=== PATIENT | male | born 1950 | race Two or more races ===

== ENCOUNTER → 2020-09-09 14:37 | Outpatient (BNVA) | payer MEDICARE, MEDICAID, SELFPAY | PROVIDERS: PCP Internal Medicine; Referring Provider Internal Medicine; Visit Provider Internal Medicine | DX: I25.10 Atherosclerotic heart disease of native coronary artery without angina pectoris (principal); I10 Essential (primary) hypertension; Z79.82 Long term (current) use of aspirin; Z79.899 Other long term (current) drug therapy | CPT/HCPCS: Q3014 ==

== ENCOUNTER 2020-09-12 16:04 | Emergency (ER) | payer MEDICARE, MEDICAID, SELFPAY ==
[2020-09-12 17:20] VITALS: BP 154/72; PULSE 72; RESP 16; TEMP 37.1; O2SAT 96; BMI 26.6
--- NOTE | 2020-09-12 18:14 | ED.LOWEXIN ---
HPI - Extremity Injury (Lower) General Chief Complaint: Extremity Injury, Lower Stated Complaint: Leg Pain Source: patient Mode of arrival: ambulatory Limitations: no limitations History of Present Illness HPI Narrative: patient presents to ED for request for compression stockings. Patient was prescribed compression stockings by his PCP this past week, but there were the wrong size. Patient states history of venous stasis of both legs. Presently patient denies any increased swelling, calf pain, redness, chest pain, chest pain on inspiration or shortness of breath. Related Data Home Medications Medication Instructions Recorded Confirmed aspirin 81 mg tablet,delayed 81 mg PO QAM 09/09/20 09/09/20 release atorvastatin 80 mg tablet 80 mg PO DAILY 09/09/20 09/09/20 diclofenac sodium 1 % topical gel 1 TOPICAL PRN 09/09/20 09/09/20 enalapril maleate 2.5 mg tablet 2.5 mg PO QAM 09/09/20 09/09/20 famotidine 20 mg tablet mg PO 09/09/20 09/09/20 famotidine 40 mg tablet 20 mg PO QAM 09/09/20 09/09/20 gabapentin 100 mg capsule mg PO 09/09/20 09/09/20 multivitamin-ferrous 1 tab PO QAM 09/09/20 09/09/20 fumarate-folic acid 18 mg-400 mcg tablet omeprazole 20 mg capsule,delayed 20 mg PO QAM 09/09/20 09/09/20 release vardenafil 20 mg tablet 20 mg PO DAILY PRN 09/09/20 09/09/20 Previous Rx's Medication Instructions Recorded amlodipine 5 mg tablet 5 mg PO DAILY 90 Days #90 tab 08/26/20 metoprolol tartrate 25 mg tablet 25 mg PO BID 90 Days #180 tab 08/26/20 compression socks, medium #2 ea 09/12/20 Allergies Allergy/AdvReac Type Severity Reaction Status Date / Time No Known Allergies Allergy Verified 09/09/20 14:38 Review of Systems Review of Systems: Yes all other systems are reviewed and are negative Constitutional: Constitutional: Reports as per HPI and Reports no additional constitutional complaints Eyes: Eyes: Reports as per HPI and Reports no additional eye complaints ENT: Reports system reviewed and no additional complaints, except as documented and Reports as per HPI Cardiovascular: Cardiovascular: Reports as per HPI and Reports no additional cardiovascular complaints Respiratory: Respiratory: Reports as per HPI and Reports no additional respiratory complaints Gastrointestinal: Gastrointestinal: Reports as per HPI and Reports no additional gastrointestinal complaints Genitourinary: Genitourinary: Reports no additional male genitourinary complaints and Reports as per HPI Musculoskeletal: Musculoskeletal: Reports no additional musculoskeletal complaints and Reports as per HPI Neurologic: Reports system reviewed and no additional complaints, except as documented and Reports as per HPI Psychiatric: Psychiatric: Reports no additional psychiatric complaints and Reports as per HPI [facility] Past Medical History Medical History Atherosclerotic cardiovascular disease Essential hypertension Surgical History History of cardiac catheterization (~08/19/14) Stented coronary artery Family History Family History (Updated 09/09/20 @ 14:39 by JOSUÉ Barrett) Father No problems noted. Mother No problems noted. Social History Social History (Updated 09/09/20 @ 14:40 by JOSUÉ Barrett) Alcohol intake: never Smoking Status: Never smoker Smoked in Last 30 Days: No Use of substances other than those prescribed or required for medical reasons: No Advance Directives: No Advance Directives Information Provided: Yes Physical Exam Vital Signs: Vital Signs: Last Vital Signs Temp 98.7 F 09/12/20 17:20 Pulse 72 09/12/20 17:20 Resp 16 09/12/20 17:20 BP 154/72 H 09/12/20 17:20 Pulse Ox 96 09/12/20 17:20 Body Mass Index 26.6 Const: General: cooperative, healthy appearing, comfortable, no acute distress, well developed, alert, awake and Physically active Orientation/consciousness: patient oriented x3 HENMT: Head: Yes normal to inspection and Yes No palpable skull fracture present Eyes: General: appearance normal, both eyes and all related structures Neck: Neck: Yes normal visual inspection, Yes full ROM, Yes no lymphadenopathy, Yes no meningeal signs, Yes trachea midline, Yes supple and No tender Chest: Chest palpation & inspection: normal inspection of the chest, normal palpation of entire chest wall and no localized rib tenderness Resp: Effort & Inspection: normal respiratory effort and able to speak in complete sentences Auscultation: clear to auscultation bilaterally Cardio: Jugular venous distension: no JVD Heart sounds: S1 normal heart sound present and S2 normal heart sound present GI: Inspection: Yes normal to inspection and No abdominal wall ecchymosis Palpation (GI): Firmness to palpation present (GI), nontender, no guarding and not rigid : General: No CVA tenderness and Yes no CVA tenderness Back/Spine/Pelvis: Back: no CVA tenderness, No CVA tenderness and No back tenderness Skin: General skin exam: no rashes or lesions noted Neuro: General: patient oriented x3, gait normal, no meningeal signs and CN's II-XI intact bilaterally Cranial nerves: Yes CN's II-XII intact bilaterally Extrem: Other: lower extremities positive for venous stasis changes. Negative for any calf tenderness, or pitting edema. Patient has palpable pulses in both feet. Neuro exam is intact. General: Yes normal to inspection and Yes full ROM Course Course Course Narrative: history and physical exam does not indicate DVT, cellulitis, CHF, or PE Reevaluation(s) Reevaluation #1: patient will have stocking prescribed. MDM - Extremity Injury (Lower) MDM Narrative Medical decision making narrative: Venous stasis. Medication refilled Discharge Plan Discharge Clinical Impression: Venous (peripheral) insufficiency, Encounter for medication refill Patient Disposition: Home, Self-Care Instructions: Venous Insufficiency (DC) Prescriptions: New (DME) compression socks, medium Misc See Rx Instructions .ROUTE .MEDSUPPLY Qty: 2 RF: 0 No Action amlodipine 5 mg tablet 5 mg PO DAILY 90 Days Qty: 90 RF: 3 metoprolol tartrate 25 mg tablet 25 mg PO BID 90 Days Qty: 180 RF: 3 atorvastatin 80 mg tablet 80 mg PO DAILY RF: 0 gabapentin 100 mg capsule PO RF: 0 aspirin 81 mg tablet,delayed release (DR/EC) 81 mg PO QAM RF: 0 famotidine 20 mg tablet PO RF: 0 omeprazole 20 mg capsule,delayed release(DR/EC) 20 mg PO QAM RF: 0 vardenafil 20 mg tablet 20 mg PO DAILY PRNRF: 0 enalapril maleate 2.5 mg tablet 2.5 mg PO QAM RF: 0 Certavite-Antioxidant 18-400 mg-mcg tablet 1 tab PO QAM RF: 0 diclofenac sodium 1 % gel 1 topical PRNRF: 0 famotidine 40 mg tablet 20 mg PO QAM RF: 0 Referrals: Josep Prieto MD [Primary Care Provider] - 2 days (Venous stasis. medication refill of compression stockings. ) Interventions: ED Discharge Assessment Last Done: 09/12/20 18:31 Discharge Date/Time: 09/12/20 18:30 Print Language: Greek
== END 2020-09-12 18:30 | disposition home or self-care (01) ==
PROVIDERS: Emergency Provider Internal Medicine; PCP Internal Medicine
DX: I87.2 Venous insufficiency (chronic) (peripheral) (principal); M79.605 Pain in left leg; M79.604 Pain in right leg; Z76.0 Encounter for issue of repeat prescription; Z79.899 Other long term (current) drug therapy
CPT/HCPCS: 99283; 99284

== ENCOUNTER 2020-09-30 13:50 | Outpatient (REF) | payer MEDICARE, MEDICAID, SELFPAY ==
--- NOTE | 2020-09-30 | US_ITS ---
EXAMINATION: US RETROPERITONEAL LIMITED (RENAL ONLY) CLINICAL INFORMATION: Chronic kidney disease, stage IIIa. Essential hypertension. COMPARISON: CT abdomen and pelvis 05/30/2012. Renal ultrasound 09/06/2010. TECHNIQUE: Real-time imaging of the kidneys. FINDINGS: RIGHT KIDNEY: 11.9 x 6.0 x 5.8 cm (SAG x AP x TRV). The kidney has normal cortical thickness and echotexture. No nephrolithiasis or hydronephrosis. A hyperechoic focus in the cortex of the mid to lower pole measures up to 0.6 cm. 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 There is a small, subtle hypodense focus in this area of the kidney on CT imaging from 05/30/2012. Otherwise, the renal cortex is unremarkable. LEFT KIDNEY: 11.2 x 5.4 x 5.1 cm (SAG x AP x TRV). The kidney has normal cortical thickness and cortical echotexture. 0.8 cm simple cyst in the interpolar area. No solid renal mass. No nephrolithiasis or hydronephrosis. US/US renal BI IMPRESSION: * Kidneys are normal in size. No evidence of nephrolithiasis or hydronephrosis of either kidney. 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 It corresponds to the region of a small hypodensity in the kidney on 05/30/2012. No suspicious renal lesion.
== END 2020-09-30 13:51 | disposition home or self-care (01) ==
LOC: HO.US 13:50
PROVIDERS: Visit Provider Internal Medicine Nephrology
DX: I12.9 Hypertensive chronic kidney disease with stage 1 through stage 4 chronic kidney disease, or unspecified chronic kidney disease (principal); N18.31 Chronic kidney disease, stage 3a
CPT/HCPCS: 76775

== ENCOUNTER 2020-11-04 09:52 | Outpatient (REF) | payer MEDICARE, MEDICAID, SELFPAY | END 2020-11-04 09:53 | disposition home or self-care (01) | LOC: HO.LAB 09:52 | PROVIDERS: PCP Internal Medicine; Visit Provider Internal Medicine | DX: Z20.822 Contact with and (suspected) exposure to COVID-19 (principal) | CPT/HCPCS: 36415; C9803; U0003 ==

== ENCOUNTER 2020-12-03 10:53 | Outpatient (REF) | payer MEDICARE, MEDICAID, SELFPAY | END 2020-12-03 10:54 | disposition home or self-care (01) | LOC: HO.LAB 10:53 | PROVIDERS: Visit Provider Internal Medicine | DX: Z20.822 Contact with and (suspected) exposure to COVID-19 (principal) | CPT/HCPCS: 36415; C9803; U0003; U0005 ==

== ENCOUNTER → 2021-03-02 09:38 | Outpatient (BNVA) | payer MEDICARE, MEDICAID, SELFPAY | PROVIDERS: PCP Internal Medicine; Referring Provider Internal Medicine; Visit Provider Internal Medicine | DX: I25.10 Atherosclerotic heart disease of native coronary artery without angina pectoris (principal); I10 Essential (primary) hypertension | CPT/HCPCS: 93005; 99212 ==

== ENCOUNTER 2021-09-15 15:07 | Emergency (ER) | payer MEDICARE, MEDICAID, SELFPAY ==
[2021-09-15 15:16] VITALS: BP 146/68; PULSE 77; RESP 18; TEMP 37.1; O2SAT 99; BMI 27.2
--- NOTE | 2021-09-15 15:17 | ED_ITS ---
HPI - URI/Sore Throat General Chief Complaint: General Medical Stated Complaint: Nasal congestion/Nose bleeds Time Seen by Provider: 09/15/21 15:16 Source: patient Mode of arrival: ambulatory Limitations: no limitations History of Present Illness MD elicited complaint: nasal congestion (mucous and when he blows he sees some blood at times) and sinus pain Onset (ago): week(s) (1) Consistency: intermittent Severity: moderate Description of mucous: clear Able to tolerate fluids by mouth: Yes Exacerbating factors: nothing Relieving factors: nothing Associated symptoms: nasal congestion Treatments prior to arrival: none Related Data Home Medications Medication Instructions Recorded Confirmed atorvastatin 80 mg tablet 80 mg PO DAILY 09/09/20 03/02/21 diclofenac sodium 1 % topical gel 1 TOPICAL PRN 09/09/20 03/02/21 famotidine 20 mg tablet mg PO 09/09/20 03/02/21 famotidine 40 mg tablet 20 mg PO QAM 09/09/20 03/02/21 gabapentin 100 mg capsule mg PO 09/09/20 03/02/21 multivitamin-ferrous 1 tab PO QAM 09/09/20 03/02/21 fumarate-folic acid 18 mg-400 mcg tablet omeprazole 20 mg capsule,delayed 20 mg PO QAM 09/09/20 03/02/21 release vardenafil 20 mg tablet 20 mg PO DAILY PRN 09/09/20 03/02/21 Previous Rx's Medication Instructions Recorded metoprolol tartrate 25 mg tablet 25 mg PO BID 90 Days #180 tab 08/26/20 compression socks, medium #2 ea 09/12/20 aspirin 81 mg tablet,delayed 81 mg PO QAM #90 tab 12/14/20 release amlodipine 10 mg tablet 10 mg PO DAILY #90 tab 03/02/21 doxycycline hyclate 100 mg capsule 100 mg PO BID 7 Days #14 cap 09/15/21 Allergies Allergy/AdvReac Type Severity Reaction Status Date / Time No Known Allergies Allergy Verified 09/15/21 15:16 Review of Systems Review of Systems: Constitutional : No Fever, No Chills ENT/Mouth : No sore throat, No Rhinorrhea, pos sinus pain, pos congestion, pos increased drainage Eyes: No Eye Pain, No Swelling, No Redness Cardiovascular : No Chest Pain, No SOB Respiratory : No Cough, No Sputum, No Wheezing Gastrointestinal : No Nausea, No Vomiting, No Diarrhea Musculoskeletal : No joint pain, No Myalgias, No Joint Swelling Skin : No Skin Lesions, No rash Neuro : No Weakness, No Numbness, No Dizziness, No Headache [facility] Past Medical History Attestation statement: The following information was validated with the patient. Medical History Atherosclerotic cardiovascular disease Essential hypertension Surgical History History of cardiac catheterization (~08/19/14) Stented coronary artery Family History Family History (Updated 09/09/20 @ 14:39 by Katie Porter Adrienne) Father No problems noted. Mother No problems noted. Social History Social History (Updated 09/15/21 @ 15:17 by Yissel Sierra DO) Alcohol intake: never Patient Tobacco Use Status: Never used Tobacco Advance Directives: No Advance Directives Information Provided: No Physical Exam Vital Signs: Vital Signs: Last Vital Signs Temp 98.8 F 09/15/21 15:16 Pulse 77 09/15/21 15:16 Resp 18 09/15/21 15:16 BP 146/68 H 09/15/21 15:16 Pulse Ox 99 09/15/21 15:16 Body Mass Index 27.2 Appearance: Alert. Oriented X3. No acute distress. Eyes: Pupils equal, round and reactive to light. ENT: Pharynx normal. Bilateral nares thick yellow mucous noted no sinus ttp, some dried blood in septum, no facial swelling Neck: Normal inspection. Neck supple. CVS: Normal heart rate and rhythm. Pulses normal. Respiratory: No respiratory distress. Breath sounds normal. Abdomen: Soft and nontender. Skin: Skin warm and dry. Normal skin color. Extremities: No lower extremity edema. Neuro: Oriented X 3. No motor deficit. No sensory deficit. MDM - URI/Sore Throat MDM Narrative Medical decision making narrative: 70 yo male with DM, HTN here with 1 week of increasing sinus pressure along with drainage and some blood when he blows his nose - no pierre epistaxis and not on oral anti-coagulation at this time will need COVID swab and start on antibiotics for sinusitis Lab Data Labs: Lab Results 09/15/21 Range/Units 15:25 COVID-19 (HITESH) Negative (Negative) COVID-19 Clin Com See Note Discharge Plan Discharge Clinical Impression: Sinusitis Patient Disposition: Home, Self-Care Instructions: Sinusitis (ED) Additional Instructions: return to ED for any worsening symptoms or concerns COVID negative Prescriptions: New doxycycline hyclate 100 mg capsule 100 mg PO BID 7 Days Qty: 14 RF: 0 No Action metoprolol tartrate 25 mg tablet 25 mg PO BID 90 Days Qty: 180 RF: 3 aspirin 81 mg tablet,delayed release (DR/EC) 81 mg PO QAM Qty: 90 RF: 3 (DME) compression socks, medium Misc See Rx Instructions .ROUTE .MEDSUPPLY Qty: 2 RF: 0 atorvastatin 80 mg tablet 80 mg PO DAILY RF: 0 gabapentin 100 mg capsule PO RF: 0 famotidine 20 mg tablet PO RF: 0 omeprazole 20 mg capsule,delayed release(DR/EC) 20 mg PO QAM RF: 0 vardenafil 20 mg tablet 20 mg PO DAILY PRNRF: 0 Certavite-Antioxidant 18-400 mg-mcg tablet 1 tab PO QAM RF: 0 diclofenac sodium 1 % gel 1 topical PRNRF: 0 famotidine 40 mg tablet 20 mg PO QAM RF: 0 amlodipine 10 mg tablet 10 mg PO DAILY Qty: 90 RF: 4 Referrals: Josep Prieto MD [Primary Care Provider] - 5 days (if not better) Print Language: Pashto
[2021-09-15 15:45] LABS: COVID-19 Test Negative (Negative)
== END 2021-09-15 16:01 | disposition home or self-care (01) ==
PROVIDERS: Emergency Provider Emergency Medicine; PCP Internal Medicine
DX: J32.9 Chronic sinusitis, unspecified (principal); R09.81 Nasal congestion; Z20.822 Contact with and (suspected) exposure to COVID-19; Z79.899 Other long term (current) drug therapy
CPT/HCPCS: 36415; 87635; 99283

== ENCOUNTER → 2021-10-20 11:29 | Outpatient (BNVA) | payer MEDICARE, MEDICAID, SELFPAY | PROVIDERS: PCP Internal Medicine; Visit Provider Surgery Vascular Surgery | DX: I83.12 Varicose veins of left lower extremity with inflammation (principal); I73.9 Peripheral vascular disease, unspecified | CPT/HCPCS: 99212 ==

== ENCOUNTER 2021-11-09 13:07 | Outpatient (REF) | payer MEDICARE, MEDICAID, SELFPAY ==
--- NOTE | ~2021-11-09 | US_ITS ---
EXAMINATION: RIGHT and LEFT LOWER EXTREMITY VENOUS ULTRASOUND (Reflux Exam) CLINICAL INDICATION: leg pain and varicose veins. COMPARISON: None. TECHNIQUE: Color flow triplex imaging and compression Doppler was performed to evaluate both the deep and the superficial systems bilaterally. To evaluate the superficial system, the examination was performed in the upright position. Color-flow Doppler ultrasound and compression ultrasound were utilized. In addition, maneuvers were utilized to demonstrate reflux. FINDINGS: 1. DEEP VENOUS ULTRASOUND OF THE RIGHT LOWER EXTREMITY: Respiratory variation, normal compression and augmented flow are noted in the right common femoral vein as well as the right popliteal vein and there is no evidence of deep venous thrombosis at these locations. There is no evidence of reflux in the deep system in either the common femoral vein or the popliteal vein. There is no evidence of a Turner's cyst. 2. SUPERFICIAL ULTRASOUND WITH DOPPLER OF RIGHT LOWER EXTREMITY: The right great saphenous vein at the saphenofemoral junction measures 6 mm, at the mid thigh 4 mm, [id number] 3 mm, [id number] 3 mm, at mid calf 2 mm and at the ankle measures 2 mm. There is significant reflux demonstrated in the right great saphenous vein from the mid thigh to the ankle. This measures maximum 2.7 seconds in the mid calf. There is an accessory lateral greater saphenous vein that measures 2 mm and does not demonstrate reflux. The right small saphenous vein measures 1-2 mm and shows no reflux. 3. DEEP VENOUS ULTRASOUND OF THE LEFT LOWER EXTREMITY: Respiratory variation, normal compression and augmented flow are noted in the left common femoral vein as well as the left popliteal vein and there is no evidence of deep venous thrombosis at these locations. There is no evidence of reflux in the deep system in either the common femoral vein or the popliteal vein. . There is no evidence of a Turner's cyst. 4. SUPERFICIAL ULTRASOUND WITH DOPPLER OF LEFT LOWER EXTREMITY: Left great saphenous vein at the saphenofemoral junction measures 9 mm, at the mid thigh 3 mm, [id number] 2 mm, [id number] 2 mm, at mid calf 2 mm and at the ankle measures 2 mm. There is reflux demonstrated in the left great saphenous vein measuring greater than 3.4 seconds below the knee.. The left small saphenous vein measures 1-2 mm and shows no reflux. There are perforators in the calf that measure 1 and 3 mm and do not demonstrate reflux. There is a varicosity in the proximal thigh that measures 3 mm and does not demonstrate reflux. US/US venous duplex LE BI IMPRESSION: Bilateral greater saphenous vein reflux. No DVT or deep venous reflux.
--- NOTE | ~2021-11-09 | US_ITS ---
EXAMINATION: COLOR-FLOW DUPLEX IMAGING OF THE BILATERAL LOWER EXTREMITY ARTERIAL SYSTEM. VELOCITY MEASUREMENTS THROUGHOUT THE FEMORAL ARTERIES WITH ANKLE-BRACHIAL PERIPHERAL ARTERIAL TESTING. Interventional Radiologist: Deondre Lucia M.D., F.S.I.R., F.A.C.R. CLINICAL INFORMATION: This is a 71-year-old male with peripheral arterial disease. History of hypertension. Hyperlipidemia. Diabetes. RIGHT FEMORAL RUNOFF VELOCITIES: The right common femoral artery measures 103 cm/s and triphasic. The right profunda femoral artery is 72 cm/s and is biphasic. Right proximal superficial femoral artery measures 87 cm/s and biphasic. Mid superficial femoral artery is 83 cm/s and triphasic. Distal right superficial femoral artery measures 81 cm/s and is biphasic. Right popliteal velocity measures 82 cm/s and is triphasic. The posterior tibial artery velocity measures 29 cm/s and was monophasic. The right ankle-brachial index is 1.02. LEFT FEMORAL RUNOFF VELOCITIES: The left common femoral artery measures 87 cm/s and biphasic. The left profunda femoral artery is 73 cm/s and is biphasic. Left proximal superficial femoral artery measures 89 cm/s and biphasic. Mid superficial femoral artery is 97 cm/s and biphasic. Distal left superficial femoral artery measures 123 cm/s and is biphasic. Left popliteal velocity measures 57 cm/s and is biphasic. The posterior tibial artery velocity measures 123 cm/s and was biphasic. The anterior tibial artery velocity measures 60 cm/s and is biphasic. The left ankle-brachial index is 1.13. US/US arterial duplex LE BI IMPRESSION: 1. RIGHT SIDE: There is a normal ankle-brachial index. Normal velocities are seen throughout the right lower extremity without evidence of focal hemodynamically significant stenosis. There are areas of decreased phasicity to the waveforms. However, no focal hemodynamically significant stenosis is seen. 2. LEFT SIDE: There is a normal ankle-brachial index. Velocities are within normal limits throughout the left lower extremity without focal hemodynamically significant stenosis. However, there is decreased phasicity to the waveforms. 3. The findings suggest diffuse atherosclerotic disease without high-grade stenosis.
== END 2021-11-09 13:08 | disposition home or self-care (01) ==
LOC: HO.US 13:07
PROVIDERS: Visit Provider Surgery Vascular Surgery
DX: I83.12 Varicose veins of left lower extremity with inflammation (principal); I73.9 Peripheral vascular disease, unspecified
CPT/HCPCS: 93923; 93925; 93970

== ENCOUNTER → 2021-11-24 15:20 | Outpatient (BNVA) | payer MEDICARE, MEDICAID, SELFPAY | PROVIDERS: PCP Internal Medicine; Visit Provider Surgery Vascular Surgery | DX: I83.11 Varicose veins of right lower extremity with inflammation (principal) | CPT/HCPCS: 99212 ==

== ENCOUNTER → 2021-12-30 08:36 | Outpatient (BNVA) | payer MEDICARE, MEDICAID, SELFPAY | PROVIDERS: PCP Internal Medicine; Visit Provider Surgery Vascular Surgery | DX: I83.11 Varicose veins of right lower extremity with inflammation (principal) | CPT/HCPCS: 36482 ==

== ENCOUNTER 2022-01-02 15:21 | Outpatient (REF) | payer MEDICARE, MEDICAID, SELFPAY ==
--- NOTE | ~2022-01-02 | US_ITS ---
EXAMINATION: US VENOUS ULTRASOUND WITH DOPPLER LOWER EXTREMITY, RIGHT CLINICAL INFORMATION: Pain in right leg status post vena seal. COMPARISON: None TECHNIQUE: Ultrasound of the deep veins is performed from the hip to the calf with compression sonography and color and pulse Doppler assessment. Spectral analysis with color-flow imaging is performed. FINDINGS: There is thrombus visualized in the greater saphenous vein approximately 2.3 cm from the confluence of the common femoral vein. On Doppler exam there is partial flow visualized in the area of the thrombus. No evidence of thrombus within the right lower extremity veins. US/US venous duplex LE RT IMPRESSION: Status post vena seal there is thrombus visualized in the greater saphenous vein 2.3 cm from the confluence of the common femoral vein. The seal has partial flow visualized and there is color flow visualized on the Doppler exam. No evidence of DVT in the right lower leg.
== END 2022-01-02 15:22 | disposition home or self-care (01) ==
LOC: HO.US 15:21
PROVIDERS: PCP Internal Medicine; Visit Provider Surgery Vascular Surgery
DX: M79.604 Pain in right leg (principal)
CPT/HCPCS: 93971

== ENCOUNTER 2022-01-12 08:57 | Emergency (ER) | payer MEDICARE, MEDICAID, SELFPAY ==
[2022-01-12 09:01] VITALS: BP 147/67; PULSE 77; RESP 16; TEMP 36.7; O2SAT 95; BMI 27.2
[2022-01-12] MEDS: Fluorescein Sodium STRIP 1 STRIP EYE-RIGHT (09:54)
[2022-01-12] MEDS: Tetracaine HCl/PF 0.5% Oph Sol 4 ML DROPS 1 DROP EYE-RIGHT (09:54)
--- NOTE | 2022-01-12 10:06 | ED_ITS ---
HPI - Eye Problem General Chief complaint: Eye Problems Stated complaint: glue in eye? Time Seen by Provider: 01/12/22 09:25 Source: patient Mode of arrival: ambulatory Limitations: no limitations History of Present Illness HPI Narrative: 71-year-old male here with reports of placing super glue in his right eye on accident instead of his eyedrops just prior to arrival. He reports some eye discomfort and irritation. He denies any vision changes. Related Data Home Medications Medication Instructions Recorded Confirmed atorvastatin 80 mg tablet 80 mg PO DAILY 09/09/20 03/02/21 diclofenac sodium 1 % topical gel 1 TOPICAL PRN 09/09/20 03/02/21 famotidine 20 mg tablet mg PO 09/09/20 03/02/21 famotidine 40 mg tablet 20 mg PO QAM 09/09/20 03/02/21 gabapentin 100 mg capsule mg PO 09/09/20 03/02/21 multivitamin-ferrous 1 tab PO QAM 09/09/20 03/02/21 fumarate-folic acid 18 mg-400 mcg tablet omeprazole 20 mg capsule,delayed 20 mg PO QAM 09/09/20 03/02/21 release vardenafil 20 mg tablet 20 mg PO DAILY PRN 09/09/20 03/02/21 amlodipine 5 mg tablet 5 mg PO DAILY 10/20/21 alcohol swabs (Alcohol Prep Pads) 0 pad TOPICAL 11/24/21 tamsulosin 0.4 mg capsule 0.4 mg PO DAILY 11/24/21 blood sugar diagnostic (FreeStyle #10 ea 12/30/21 Lite Strips) enalapril maleate 2.5 mg tablet 2.5 mg PO DAILY 12/30/21 lancets 33 gauge (TRUEplus Lancets) #100 ea 12/30/21 metformin 500 mg tablet,extended 500 mg PO DAILY 12/30/21 release 24 hr Previous Rx's Medication Instructions Recorded compression socks, medium #2 ea 09/12/20 amlodipine 10 mg tablet 10 mg PO DAILY #90 tab 03/02/21 doxycycline hyclate 100 mg capsule 100 mg PO BID 7 Days #14 cap 09/15/21 metoprolol tartrate 25 mg tablet 25 mg PO BID 90 Days #180 tab 10/07/21 aspirin 81 mg tablet,delayed 81 mg PO QAM #90 tab 01/09/22 release erythromycin 5 mg/gram (0.5 %) eye 0.5 inch OPHTHALMIC (EYE) BID #3.5 01/12/22 ointment g Allergies Allergy/AdvReac Type Severity Reaction Status Date / Time No Known Allergies Allergy Verified 12/30/21 09:42 Review of Systems Review of Systems: Yes all other systems are reviewed and are negative Constitutional: Constitutional: Reports no additional constitutional complaints, Denies body ache(s), Denies chills, Denies fever(s), Denies headache(s) and Denies weakness Eyes: Eyes: Reports no additional eye complaints, Denies change in vision, Denies eye discharge, Reports irritation and Denies photophobia ENT: Reports system reviewed and no additional complaints, except as documented, Denies dizziness, Denies headache(s), Denies nasal congestion, Denies nasal discharge and Denies neck pain Cardiovascular: Cardiovascular: Reports no additional cardiovascular complaints, Denies chest pain, Denies leg edema and Denies dyspnea Respiratory: Respiratory: Reports no additional respiratory complaints, Denies cough and Denies dyspnea Gastrointestinal: Gastrointestinal: Reports no additional gastrointestinal complaints, Denies abdominal pain, Denies diarrhea, Denies nausea and Denies vomiting Genitourinary: Genitourinary: Denies urinary incontinence Musculoskeletal: Musculoskeletal: Reports no additional musculoskeletal complaints, Denies back pain, Denies arthralgias, Denies joint swelling, Denies neck pain, Denies numbness and Denies tingling Integumentary/Breasts: Skin/Breast: Reports system reviewed and no additional complaints, except as docu and Denies rash Neurologic: Reports system reviewed and no additional complaints, except as do cumented, Denies Abnormal speech present, Denies dizziness, Denies headache(s), Denies numbness, Denies tingling and Denies weakness [facility] Past Medical History Attestation statement: The following information was validated with the patient. Source: old records reviewed and nursing notes reviewed Medical History Atherosclerotic cardiovascular disease Diabetes Essential hypertension High cholesterol Surgical History History of cardiac catheterization (~08/19/14) Stented coronary artery Family History Family History Father No problems noted. Mother No problems noted. Social History Social History Alcohol intake: never Patient Tobacco Use Status: Never used Tobacco Advance Directives: No Advance Directives Information Provided: Yes Physical Exam Vital Signs: Vital Signs: Last Vital Signs Temp 98.1 F 01/12/22 09:01 Pulse 77 01/12/22 09:01 Resp 16 01/12/22 09:01 BP 147/67 H 01/12/22 09:01 Pulse Ox 95 01/12/22 09:01 BMI result Body Mass Index 27.2 Const: General: cooperative, healthy appearing, comfortable and no acute distress Orientation/consciousness: patient oriented x3 Limitations: no limitations HEENT: Head: Yes normal to inspection Ears: hearing grossly normal bilaterally General nose exam: Normal external nose present Face and sinus: Yes normal facial exam Mouth: Normal oral and palatal mucosa present Throat: Yes posterior oropharynx normal Eyes: General: appearance normal, both eyes and all related structures Visual Hager: normal visual hager by confrontation Alignment and Position: alignment normal Periorbital: periorbital findings normal Eyelids: Yes eyelid abnormality (Over the upper and lower eyelid there is glue that is crusted right eye) Conjunctivae: conjunctival abnormal (Injection right eye) and other (crusted glue particles floating noted throughout) Corneas: corneas abnormal (at 3 o clock position there is an abrasion ) and fluorescein used Pupils: Equal, round and reactive pupils present EOM: EOMs intact bilaterally Direct Ophthalmoscopy: normal light reflex and No photophobia Neck: Neck: Yes normal visual inspection Chest: Chest palpation & inspection: normal inspection of the chest Resp: Effort & Inspection: normal respiratory effort Auscultation: clear to auscultation bilaterally Cardio: Rate: regular rate Rhythm: regular rhythm Peripheral pulses: Peripheral pulses 2+ throughout GI: Inspection: Yes normal to inspection Palpation (GI): Soft to palpation and nontender Auscultation: normal bowel sounds Back/Spine/Pelvis: Thoracic/Lumbar Spine: thoracic and lumbar spine normal to inspection Skin: General skin exam: no rashes or lesions noted Neuro: General: patient oriented x3, no focal motor deficits and normal sensation to monofilament Cranial nerves: Yes Equal, round and reactive pupils present Cognition (Neuro): normal cognition Speech: No Abnormal speech present Gait exam (Neuro): Normal gait present Motor exam (neuro): 5/5 motor strength present throughout Extrem: General: Yes normal to inspection Course Course Course Narrative: 71-year-old male here with reports of putting super glue in his right eye instead of his eyedrops accidentally just prior to arrival with complaints of right eye irritation and tearing. No vision changes. On visual inspection the patient has crusting super glue over the upper and lower eyelids. There are free floating super glue particles noted in the eye. Tetracaine applied. Fluorescein stain done. Glue particles easily manually removed. I was able to remove some of the external glue from the eyelid as well but not completely. Maykel lens was applied and the patient received about 300 mL of normal saline but then wanted to leave to go to an appointment. On discharge he was feeling improved. He does have a corneal abrasion. I do not see any residual glue in the eye. We discussed he may apply a compress at home to gently remove residual glue from the external eyelid. Will have him follow-up with ophthalmology to determine resolution. I did speak to on-call ophthalmology Dr. Benítez who will see the patient in the office as needed. Reviewed worrisome signs/symptoms with patient and when to return to ED. Comfortable with discharge home. MDM - Eye Problem Medical Records Attestation: I reviewed the patient's medical records. Lab Data Attestation: I reviewed the patient's lab results. Discharge Plan Discharge Clinical Impression: Corneal abrasion Patient Disposition: Home, Self-Care Instructions: Corneal Abrasion (DC) Additional Instructions: Cool compresses to the eye Call Dr. Benítez for follow-up appointment this week You still have some glue on your eyelid. You may soak a towel with all of oil or [employer] and apply it to the eyelid Prescriptions: New erythromycin 5 mg/gram (0.5 %) ointment 0.5 inch ophthalmic (eye) BID Qty: 3.5 0RF No Action metoprolol tartrate 25 mg tablet 25 mg PO BID 90 Days Qty: 180 0RF Rx Instructions: Please call cardiology to make an appt aspirin 81 mg tablet,delayed release (DR/EC) 81 mg PO QAM Qty: 90 3RF (DME) compression socks, medium Misc See Rx Instructions .ROUTE .MEDSUPPLY Qty: 2 0RF Rx Instructions: As directed doxycycline hyclate 100 mg capsule 100 mg PO BID 7 Days Qty: 14 0RF atorvastatin 80 mg tablet 80 mg PO DAILY 0RF gabapentin 100 mg capsule PO 0RF famotidine 20 mg tablet PO 0RF omeprazole 20 mg capsule,delayed release(DR/EC) 20 mg PO QAM 0RF vardenafil 20 mg tablet 20 mg PO DAILY PRN0RF Certavite-Antioxidant 18-400 mg-mcg tablet 1 tab PO QAM 0RF diclofenac sodium 1 % gel 1 topical PRN0RF famotidine 40 mg tablet 20 mg PO QAM 0RF amlodipine 10 mg tablet 10 mg PO DAILY Qty: 90 4RF amlodipine 5 mg tablet 5 mg PO DAILY 0RF (DME) lancets [TRUEplus Lancets] 33 gauge misc See Rx Instructions ea Not Applicable BID Qty: 100 0RF Rx Instructions: As directed metformin 500 mg tablet extended release 24 hr 500 mg PO DAILY 0RF (DME) FreeStyle Lite Strips Strip See Rx Instructions ea Not Applicable BID Qty: 10 0RF Rx Instructions: As directed enalapril maleate 2.5 mg tablet 2.5 mg PO DAILY 0RF alcohol swabs [Alcohol Prep Pads] Pads, Medicated 0 pad topical 0RF tamsulosin 0.4 mg capsule 0.4 mg PO DAILY 0RF Referrals: Quirino Benítez [Physician] - 5 days Interventions: ED Discharge Assessment Last Done: 01/12/22 11:02
[2022-01-12] MEDS: 0.9 % Sodium Chloride 1,000 ML 999 ML IVCONT (10:22)
== END 2022-01-12 11:02 | disposition home or self-care (01) ==
PROVIDERS: Emergency Provider Emergency Medicine; PCP Internal Medicine
DX: T15.01XA Foreign body in cornea, right eye, initial encounter (principal); X58.XXXA Exposure to other specified factors, initial encounter; Y93.89 Activity, other specified; Y92.039 Unspecified place in apartment as the place of occurrence of the external cause; Y99.9 Unspecified external cause status
CPT/HCPCS: 65205; 65220; 96360; 99284

== ENCOUNTER → 2022-02-28 14:18 | Outpatient (BNVA) | payer MEDICARE, MEDICAID, SELFPAY | PROVIDERS: PCP Internal Medicine; Referring Provider Internal Medicine; Visit Provider Internal Medicine | DX: I25.10 Atherosclerotic heart disease of native coronary artery without angina pectoris (principal); I10 Essential (primary) hypertension | CPT/HCPCS: 93005; 99212 ==

== ENCOUNTER → 2022-03-02 15:45 | Outpatient (BNVA) | payer MEDICARE, MEDICAID, SELFPAY | PROVIDERS: PCP Internal Medicine; Visit Provider Surgery Vascular Surgery | DX: I83.11 Varicose veins of right lower extremity with inflammation (principal) | CPT/HCPCS: 99212 ==

== ENCOUNTER 2022-10-01 11:23 | Emergency (ER) | payer MEDICARE, MEDICAID, SELFPAY ==
--- NOTE | ~2022-10-01 | US_ITS ---
EXAMINATION: US VENOUS ULTRASOUND WITH DOPPLER LOWER EXTREMITY, RIGHT CLINICAL INFORMATION: Right leg pain. COMPARISON: None TECHNIQUE: Ultrasound of the deep veins is performed from the hip to the calf with compression sonography and color and pulse Doppler assessment. Spectral analysis with color-flow imaging is performed. FINDINGS: There is normal venous compression and respiratory variation and augmented flow. The visualized common femoral vein, superficial femoral vein, profunda femoral vein, popliteal vein, and the trifurcation region shows no evidence of deep venous thrombosis. No right popliteal cyst. The subcutaneous soft tissues are unremarkable. If the patient's symptoms persist, followup ultrasound in 5 days 7 days might be of value to exclude proximal propagation from a non-visualized calf vein. US/US venous duplex LE RT IMPRESSION: No evidence of deep venous thrombosis in the visualized veins of the right lower extremity.
--- NOTE | ~2022-10-01 | US_ITS ---
EXAMINATION: ULTRASOUND ARTERIAL DUPLEX LOWER EXTREMITY RIGHT CLINICAL INFORMATION: Claudication COMPARISON: Previous exam October 2021 TECHNIQUE: Doppler, color and grayscale evaluation of the arteries of the right lower extremity including grayscale and waveform spectral analysis. FINDINGS: There is evidence of atherosclerotic disease with vessel wall calcification. The right common femoral artery is patent. Peak systolic velocity is normal and measures 100 cm/s. There is biphasic to triphasic waveform. The proximal profunda is patent. Peak systolic velocity is normal and measure 72 cm/s. There is a biphasic waveform. The right superficial femoral artery is patent. This demonstrates normal peak systolic velocities measuring 86, 83 and 79 cm/s proximally, in the midportion and distally and demonstrates a biphasic waveform. There is a mild to moderate area of narrowing in the popliteal artery. Popliteal artery peak systolic velocity is normal measuring 70 cm/s. There is a biphasic waveform. The visualized posterior tibial artery is heavily calcified and may be narrowed. Peak systolic velocity measures 87 cm/s. This is increased from 29 cm/s on prior exam October 2021. There is a biphasic waveform. US/US arterial duplex LE RT IMPRESSION: Diffuse atherosclerotic disease. The right common femoral superficial femoral arteries are patent. There is a mild to moderate stenosis of the popliteal artery. There is likely trifurcation or infrapopliteal disease.
[2022-10-01 11:34] VITALS: BP 141/59; PULSE 64; RESP 16; TEMP 36.2; O2SAT 97; BMI 27.2
--- NOTE | 2022-10-01 11:34 | ED.GENADULT ---
HPI - General Adult General Chief complaint: Extremity Injury, Lower <ERVIN Alex - Last Filed: 10/01/22 11:39> Stated complaint: R leg pain, no inj <ERVIN Alex - Last Filed: 10/01/22 11:39> Time Seen by Provider: 10/01/22 11:49 <ERVIN Alex - Last Filed: 10/01/22 11:39> Source: patient <Glenna Murphy MD - Last Filed: 10/01/22 15:39> Mode of arrival: ambulatory <Glenna Murphy MD - Last Filed: 10/01/22 15:39> Limitations: no limitations <Glenna Murphy MD - Last Filed: 10/01/22 15:39> History of Present Illness HPI narrative: 71-year-old male came in for evaluation right leg pain for a week. Pain started about a week ago started in the right hip area radiates down to the thigh and calf area, pain is intermittent described as moderate 5/10, patient took 2 Tylenol which relieved his pain last night, declined any SOB or CP no recent travel or no recent prolonged immobilization, patient is known to have peripheral vascular disease. Patient with history of varicose vein status post venous seal ablation by Dr. Chairez patient has done extremely well after the venous seal in the past. <Glenna Murphy MD - Last Filed: 10/01/22 15:39> Related Data Home medications: Home Medications Medication Instructions Recorded Confirmed atorvastatin 80 mg tablet 80 mg PO DAILY 09/09/20 02/28/22 diclofenac sodium 1 % topical gel 1 topical PRN 09/09/20 02/28/22 famotidine 40 mg tablet 20 mg PO QAM 09/09/20 02/28/22 gabapentin 100 mg capsule mg PO 09/09/20 02/28/22 multivitamin-ferrous 1 tab PO QAM 09/09/20 02/28/22 fumarate-folic acid 18 mg-400 mcg tablet omeprazole 20 mg capsule,delayed 20 mg PO QAM 09/09/20 02/28/22 release vardenafil 20 mg tablet 20 mg PO DAILY PRN 09/09/20 02/28/22 amlodipine 5 mg tablet 5 mg PO DAILY 10/20/21 02/28/22 alcohol swabs (Alcohol Prep Pads) 0 pad topical 11/24/21 02/28/22 tamsulosin 0.4 mg capsule 0.4 mg PO DAILY 11/24/21 02/28/22 blood sugar diagnostic (FreeStyle #10 ea 12/30/21 02/28/22 Lite Strips) enalapril maleate 2.5 mg tablet 2.5 mg PO DAILY 12/30/21 02/28/22 lancets 33 gauge (TRUEplus Lancets) #100 ea 12/30/21 02/28/22 metformin 500 mg tablet,extended 500 mg PO DAILY 12/30/21 02/28/22 release 24 hr Previous Rx's Medication Instructions Recorded compression socks, medium #2 ea 09/12/20 aspirin 81 mg tablet,delayed 81 mg PO QAM #90 tabs 01/09/22 release metoprolol tartrate 25 mg tablet 25 mg PO BID 90 days #180 tabs 03/13/22 naproxen 250 mg tablet 250 mg PO BID PRN pain #20 tabs 10/01/22 <ERVIN Alex - Last Filed: 10/01/22 11:39> Allergies/adverse reactions: Allergies Allergy/AdvReac Type Severity Reaction Status Date / Time No Known Allergies Allergy Verified 03/02/22 15:47 <ERVIN Alex - Last Filed: 10/01/22 11:39> Review of Systems Review of Systems: All other systems are reviewed and are negative Constitutional: Reports as per HPI and Reports no additional constitutional complaints Eyes: Reports as per HPI and Reports no additional eye complaints Reports system reviewed and no additional complaints, except as documented Cardiovascular: Reports as per HPI and Reports no additional cardiovascular complaints Respiratory: Reports as per HPI and Reports no additional respiratory complaints Gastrointestinal: Reports as per HPI and Reports no additional gastrointestinal complaints Genitourinary: Reports no additional female genitourinary complaints Musculoskeletal: Reports no additional musculoskeletal complaints Skin/Breast: Reports system reviewed and no additional complaints, except as docu Psychiatric: Reports no additional psychiatric complaints Endocrine: Reports no additional endocrine complaints Hematologic/Lymphatic: Reports no additional hematologic/lymphatic complaints Allergic/Immunologic: Reports no additional allergic/immunologic complaints Reports system reviewed and no additional complaints, except as documented and Reports Abnormal speech present <Glenna Murphy MD - Last Filed: 10/01/22 15:39> [facility] Past Medical History Medical History: Medical History Atherosclerotic cardiovascular disease Diabetes Essential hypertension High cholesterol <ERVIN Alex - Last Filed: 10/01/22 11:39> Surgical History: Surgical History History of cardiac catheterization (~08/19/14) Stented coronary artery <ERVIN Alex - Last Filed: 10/01/22 11:39> Family History Family History: Family History Father No problems noted. Mother No problems noted. <ERVIN Alex - Last Filed: 10/01/22 11:39> Social History Social History: Social History Alcohol intake: never Patient Tobacco Use Status: Never used Tobacco Advance Directives: No Advance Directives Information Provided: Yes <ERVIN Alex - Last Filed: 10/01/22 11:39> Physical Exam ED Vital Signs: Vital Signs - 24 hr 10/01/22 11:34 Temperature 97.1 F Pulse Rate 64 Respiratory Rate 16 Blood Pressure 141/59 H Pulse Oximetry 97 Oxygen Delivery Method Room Air BMI result Body Mass Index 27.2 <ERVIN Alex - Last Filed: 10/01/22 11:39> Vital Signs - 24 hr 10/01/22 11:34 Temperature 97.1 F Pulse Rate 64 Respiratory Rate 16 Blood Pressure 141/59 H Pulse Oximetry 97 Oxygen Delivery Method Room Air BMI result Body Mass Index 27.2 Vital signs have been reviewed as appeared to be correct. Blood pressure normal. Heart rate normal. Respiration rate normal. Temperature normal. Oxygen saturation normal. <Glenna Murphy MD - Last Filed: 10/01/22 15:39> Appearance: Alert. Oriented X3. No acute distress. Head: Normal external exam. Normocephalic. Atraumatic. No Grimm signs noted. No raccoon eyes noted Eyes: PERRLA. EOMI. Conjunctiva and sclera normal. Eyelids normal. ENT: TM's Normal. Pharynx normal. Uvula midline. Moist mucous membranes. No trismus noted. No drooling noted. No muffled voice noted. Neck: Normal inspection. Neck supple. FROM. No adenopathy. Thyroid Normal. No meningeal signs. No neck mass noted. CVS: Normal heart rate and rhythm. Heart sound normal. No murmurs noted. Pulses normal throughout. Respiratory: No respiratory distress. Painless inspiration. Breath sounds normal. No wheezes/rales/rhonchi noted. Chest nontender. No accessory muscle usage noted or decreased air movement noted. Abdomen: Soft and nontender. Bowel sounds normal in all 4 quadrants. No distention noted. No organomegaly noted. No visible injury noted. Back: No CVA tenderness. Full range of motion noted. Skin: Skin warm and dry. Normal skin color. Normal skin turgor. No rashes/lesions/lacerations noted. Extremities: No lower extremity edema. Extremities exhibit normal range of motion. Extremities nontender. Neuro: Oriented X 3. Cranial nerve exam: II-XII are grossly intact No motor deficit. No sensory deficit. Reflexes normal. <Glenna Murphy MD - Last Filed: 10/01/22 15:39> Course Course Course Narrative: RME - 71 y/o male with history of PAD, varicose veins, HTN coming in with progressively nontraumatic right lower extremity pain for the last 1 week. Pain starts in the right hip and radiates all the way down mostly on the back of his leg, worse with walking. ?claudication. His leg is warm and well perfused on brief exam in triage. Doubt any critical limb ischemia given brief examination. He is unsure if he is on anticoagulation. Will start with LE doppler to r/o DVT. <ERVIN Alex - Last Filed: 10/01/22 11:39> Reevaluation(s) Reevaluation #1: Chronic right lower extremity pain which is likely secondary to osteoarthritis patient has no DVT or significant acute arterial occlusion on the ultrasound patient was instructed to take NSAIDs every 6 hours for pain and follow-up with PCP. <Glenna Murphy MD - Last Filed: 10/01/22 15:39> Time: 15:36 <Glenna Murphy MD - Last Filed: 10/01/22 15:39> Medical Decision Making Medical Decision Making Differential Diagnoses: Differential diagnosis (DVT/PAD/osteoarthritis) <Glenna Murphy MD - Last Filed: 10/01/22 15:39> Independent interpretation of EKG, rhythm strip, radiology study: Independent interp EKG,rhythm strip, radiology study I performed an independent interpretation of the: Ultrasound (Venous and arterial of the right lower extremity) My interpretation is no DVT, no acute arterial occlusion. <Glenna Murphy MD - Last Filed: 10/01/22 15:39> Discussion of test interpretation with radiology: Discussion of test interpretation with radiology <Glenna Murphy MD - Last Filed: 10/01/22 15:39> Discharge Plan Discharge Clinical Impression: Osteoarthritis <ERVIN Alex - Last Filed: 10/01/22 11:39> Patient Disposition: Home, Self-Care <ERVIN Alex - Last Filed: 10/01/22 11:39> Instructions: Osteoarthritis (ED) <ERVIN Alex - Last Filed: 10/01/22 11:39> Prescriptions: New naproxen 250 mg tablet 250 mg PO BID PRN (Reason: pain) Qty: 20 0RF No Action aspirin 81 mg tablet,delayed release (DR/EC) 81 mg PO QAM Qty: 90 3RF metoprolol tartrate 25 mg tablet 25 mg PO BID 90 Days Qty: 180 3RF (DME) compression socks, medium Misc See Rx Instructions .ROUTE .MEDSUPPLY Qty: 2 0RF Rx Instructions: As directed atorvastatin 80 mg tablet 80 mg PO DAILY gabapentin 100 mg capsule PO omeprazole 20 mg capsule,delayed release(DR/EC) 20 mg PO QAM vardenafil 20 mg tablet 20 mg PO DAILY PRN Certavite-Antioxidant 18-400 mg-mcg tablet 1 tab PO QAM diclofenac sodium 1 % gel 1 topical PRN famotidine 40 mg tablet 20 mg PO QAM amlodipine 5 mg tablet 5 mg PO DAILY (DME) lancets [TRUEplus Lancets] 33 gauge misc See Rx Instructions Not Applicable BID Qty: 100 Rx Instructions: As directed metformin 500 mg tablet extended release 24 hr 500 mg PO DAILY (DME) FreeStyle Lite Strips Strip See Rx Instructions Not Applicable BID Qty: 10 Rx Instructions: As directed enalapril maleate 2.5 mg tablet 2.5 mg PO DAILY alcohol swabs [Alcohol Prep Pads] Pads, Medicated 0 pad topical tamsulosin 0.4 mg capsule 0.4 mg PO DAILY <ERVIN Alex - Last Filed: 10/01/22 11:39> Referrals: Josep Prieto MD [Primary Care Provider] - <ERVIN Alex - Last Filed: 10/01/22 11:39>
== END 2022-10-01 16:34 | disposition home or self-care (01) ==
PROVIDERS: Emergency Provider Emergency Medicine; PCP Internal Medicine
DX: M16.11 Unilateral primary osteoarthritis, right hip (principal); M79.604 Pain in right leg; R60.0 Localized edema
CPT/HCPCS: 93926; 93971; 99282; 99284

== ENCOUNTER → 2022-12-15 15:04 | Outpatient (BNVA) | payer MEDICARE, MEDICAID, SELFPAY | PROVIDERS: PCP Internal Medicine; Visit Provider Urology | DX: N40.1 Benign prostatic hyperplasia with lower urinary tract symptoms (principal); N13.8 Other obstructive and reflux uropathy; R35.1 Nocturia | CPT/HCPCS: 51798; 99202 ==

== ENCOUNTER 2022-12-21 09:22 | Outpatient (REF) | payer MEDICARE, MEDICAID, SELFPAY ==
[2022-12-27 20:48] LABS: PSA, Ultra Sensitive 1.42 ng/mL
== END 2022-12-21 09:23 | disposition home or self-care (01) ==
LOC: HO.LAB 09:22
PROVIDERS: PCP Internal Medicine; Visit Provider Urology
DX: N40.1 Benign prostatic hyperplasia with lower urinary tract symptoms (principal); Z12.5 Encounter for screening for malignant neoplasm of prostate
CPT/HCPCS: 36415; 84153

== ENCOUNTER 2023-01-05 15:55 | Outpatient (REF) | payer MEDICARE, MEDICAID, SELFPAY ==
--- NOTE | ~2023-01-05 | US_ITS ---
EXAMINATION: US RETROPERITONEAL COMPLETE (RENAL) CLINICAL INFORMATION: Nocturia. COMPARISON: Renal ultrasound 09/30/2020. TECHNIQUE: Real-time imaging of the kidneys and bladder. FINDINGS: RIGHT KIDNEY: 11.6 x 6.5 x 5.7 cm (SAG x AP x TRV). The kidney is normal in size, contour, and echogenicity. Renal cortical thickness is normal. No renal calculi. Stable 0.6 cm hyperechoic lesion in the lower pole. LEFT KIDNEY: 11.2 x 5.5 x 4.8 cm (SAG x AP x TRV). The kidney is normal in size, contour, and echogenicity. Renal cortical thickness is normal. No renal calculi or hydronephrosis. Simple cyst in the mid pole measuring 0.6 cm, for which no imaging follow-up is recommended. BLADDER: Well distended and normal. Bilateral ureteral jets are demonstrated. Prevoid bladder volume is 215.0 mL. Postvoid bladder volume is 30.8 mL. ADDITIONAL FINDINGS: Enlarged prostate, volume of 37 mL. US/US retroperitoneal comp IMPRESSION: 1. No acute sonographic abnormalities. 2. 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 3. Enlarged prostate.
== END 2023-01-05 15:56 | disposition home or self-care (01) ==
LOC: HO.US 15:55
PROVIDERS: PCP Internal Medicine; Visit Provider Urology
DX: R35.1 Nocturia (principal); N40.1 Benign prostatic hyperplasia with lower urinary tract symptoms
CPT/HCPCS: 76770

== ENCOUNTER → 2023-01-29 15:07 | Outpatient (BNVA) | payer MEDICARE, MEDICAID, SELFPAY | PROVIDERS: PCP Internal Medicine; Visit Provider Urology | DX: N40.1 Benign prostatic hyperplasia with lower urinary tract symptoms (principal); N13.8 Other obstructive and reflux uropathy; R35.1 Nocturia; N32.81 Overactive bladder; Z79.899 Other long term (current) drug therapy | CPT/HCPCS: 51798; 99212 ==

== ENCOUNTER → 2023-04-11 14:41 | Outpatient (BNVA) | payer MEDICARE, MEDICAID, SELFPAY | PROVIDERS: PCP Internal Medicine; Referring Provider Internal Medicine; Visit Provider Internal Medicine | DX: I25.10 Atherosclerotic heart disease of native coronary artery without angina pectoris (principal); I10 Essential (primary) hypertension | CPT/HCPCS: 93005; 99212 ==

== ENCOUNTER 2023-08-01 13:03 | Outpatient (AMB) | payer MEDICARE, MEDICAID, SELFPAY ==
--- NOTE | 2023-08-01 13:04 | A.OFFVIS_ITS ---
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 08/31/2023 ? The patient last visit was on 01/29/23. The patient is compliant with oxybutynin (QHS) but has not been taking the tamsulosin. The patient reports nocturia at night. He states that his nocturia frequency decreased from 4-5 times to 3-4 times at night. He is drinking only two cups of coffee throughout the day. He denies drinking a lot of fluid/water before going to bed. Evaluation today: Blood: negative, leukocytes: negative. Bladder scan PVR: 0 mL. Protein: 30 ml/dL. LV-- 01/29/2023 The patient reports that the oxybutynin 5 mg trial has reduced nocturia episodes to two per night. He is taking tamsulosin 0.4 mg without any reported side effects. States having nocturia episodes 2 times. Denies urinary leakage. Denies incontinence. PSA results reviewed?12/21/22--1.42. Renal US results reviewed-- 01/05/23-- Bladder with normal limits. Right kidney: Stable 0.6 cm hyperechoic lesion in the lower pole of the right kidney which could represent a small angiomyolipoma. Enlarged prostate. It was discussed with the patient that angiomyolipoma is a fatty lesion in the kidney that is considered benign. It has muscle cells and blood cells and does not change into malignant lesion. If the lesion grows to over 5 cm, then we are concerned that it may cause bleeding. Plan: A prescription of tamsulosin 0.4 mg was provided. Advised to continue oxybutynin as directed. The patient will follow up in February 12. [facility] Medical History High cholesterol Diabetes Essential hypertension Atherosclerotic cardiovascular disease Surgical History Stented coronary artery History of cardiac catheterization (~08/19/14) Family History Father No problems noted. Mother No problems noted. Social History Alcohol intake: never Patient Tobacco Use Status: Never used Tobacco Review of Systems Const All systems reviewed & are unremarkable except as noted in HPI and below Reports no additional complaints Eyes Reports no additional complaints ENT Reports no additional complaints Card Reports no additional complaints Resp Reports no additional complaints GI Reports no additional complaints Musc Reports no additional complaints Skin/Breast Reports system reviewed and no additional complaints, except as documented Neuro Reports no additional complaints Psych Reports no additional complaints Endo Reports no additional complaints Kimo/Lymph Reports no additional complaints Aller/Immun Reports no additional complaints Physical Exam Const General: healthy appearing, no acute distress and well developed Orientation/consciousness: patient oriented x3 HEENT Head: Yes normocephalic and Yes atraumatic Eyes Conjunctivae: conjunctivae normal Neck Neck: Yes normal visual inspection Chest Chest palpation & inspection: normal inspection of the chest Resp Effort & Inspection: normal respiratory effort Cardio Rate: regular rate GI Inspection: Yes normal to inspection Skin General skin exam: no rashes or lesions noted Neuro General: patient oriented x3 Extrem General: Yes no pedal edema Psych Appearance: grossly normal Affect: normal affect Office Procedures Post Void Residual Post Residual Void Post Void Residual (PVR): 0 [id number] Void Residual by ultrasound Results AMB Urinalysis, Automated UA Leukoctes 0 Dusty/uL Last Edit by JOSUÉ Martinez on 08/01/23 13:17 UA Nitrite Negative Last Edit by JOSUÉ Martinez on 08/01/23 13:17 UA Urobilinogen 0.2 mg/dL Last Edit by JOSUÉ Martinez on 08/01/23 13:1 7 UA Protein 30 mg/dL Last Edit by Jenni Thayer, A on 08/01/23 13:17 1+ Jenni Thayer 08/01/23 13:17 UA pH 5.5 Last Edit by Jenni Thayer, RMA on 08/01/23 13:17 UA Blood 0 Todd/uL Last Edit by Jenni Thayer, A on 08/01/23 13:17 UA Specific Hunter 1.025 Last Edit by Jenni Thayer, A on 08/01/23 13: 17 UA Ketone Negative Last Edit by Jenni Thayer, A on 08/01/23 13:17 UA Bilirubin 2 mg/dL Last Edit by Jenni Thayer, A on 08/01/23 13:17 2+ Jenni Thayer 08/01/23 13:17 UA Glucose 0 mg/dL Last Edit by Jenni Thayer A on 08/01/23 13:17 Results Reviewed Results Reviewed: Laboratory Last Values Urine pH (Auto) 5.5 08/01/23 13:15 Specific Hunter (Auto) 1.025 08/01/23 13:15 Urine Protein (Auto) 30 mg/dL 08/01/23 13:15 Glucose (UA)(Auto) 0 mg/dL 08/01/23 13:15 Urine Ketones (Auto) Negative 08/01/23 13:15 Urine Blood (Auto) 0 Todd/uL 08/01/23 13:15 Urine Nitrite (Auto) Negative 08/01/23 13:15 Urine Bilirubin (Auto) 2 mg/dL 08/01/23 13:15 Urine Urobilinogen (Auto) 0.2 mg/dL 08/01/23 13:15 Leukocyte Esterase (Auto) 0 Dusty/uL 08/01/23 13:15 Assessment & Plan Assessment & Plan (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 Advised to continue oxybutynin as directed. A refill was provided to the patient. The patient will follow up in February 12. Orders: Orders US renal BI 4 Months D17. - Benign lipomatous neoplasm of kidney AMB Urinalysis Automated Today Z13.9 - Encounter for screening, unspecified AMB Post Void Residual by ultrasound Today N39.8 - Other specified disorders of urinary system Medications: Changed From tamsulosin 0.4 mg PO DAILY To tamsulosin take daily at 9 pm at night 0.4 mg PO DAILY 90 caps 2RF From oxybutynin chloride ER 5 mg PO BEDTIME 90 tabs 3RF To oxybutynin chloride ER take at 9 pm daily 5 mg PO BEDTIME 90 tabs 3RF Patient Instructions: The patient had an opportunity to ask questions regarding treatment plan. All questions were answered. Imaging, Laboratory studies and physical exam results were discussed and reviewed in detail. No major barriers to understanding were identified. The patient expressed understanding and agreement with the above treatment plan. The patient is aware they should contact our office by phone for worsening of their current condition or the appearance of new symptoms. Compliance is encouraged with any medications and followup testing that is ordered. It is a privilege to be allowed the opportunity to participate in the urologic care of your patient. If you have any questions or concerns regarding treatment for the above conditions please do not hesitate to contact me. The office telephone contact is [phone]. This note is constructed in part using voice recognition software. While every effort has been made to ensure accuracy medical lab tech instructor errors may have been included. Yours sincerely, Tiarra Hardy MD Coding Level of Care Code Est Pt Level 4 (18483) Diagnoses Renal angiomyolipoma D17. Nocturia R35.1 BPH loc w urin obs/LUTS N40.1 CPT Codes Post Residual Void - PVR CPT Code: 63351-Utlp Void Residual by ultrasound ([id number])
== END 2023-08-01 13:38 | disposition home or self-care (01) ==
PROVIDERS: PCP Internal Medicine; Visit Provider Urology
DX: N40.1 Benign prostatic hyperplasia with lower urinary tract symptoms (principal); D17.71 Benign lipomatous neoplasm of kidney; R35.1 Nocturia; Z13.9 Encounter for screening, unspecified
CPT/HCPCS: 99214

== ENCOUNTER → 2023-08-01 13:03 | Outpatient (BNVA) | payer MEDICARE, MEDICAID, SELFPAY | PROVIDERS: Visit Provider Urology | DX: D17.71 Benign lipomatous neoplasm of kidney (principal); N40.1 Benign prostatic hyperplasia with lower urinary tract symptoms; R35.1 Nocturia | CPT/HCPCS: 51798; 81003; 99212 ==

== ENCOUNTER 2023-08-20 15:54 | Outpatient (REF) | payer MEDICARE, MEDICAID, SELFPAY ==
[2023-08-20 17:53] LABS: Anion Gap 14 (12-20); Blood Urea Nitrogen 19 mg/dL (9-16); Calcium 9.7 mg/dL (8.4-10.2); Carbon Dioxide 27 mmol/L (22-29); Chloride 105 mmol/L (96-108); Estimated Glomerular Filt Rate > 60; Glucose Random 114 mg/dL (60-115); Potassium 4.8 mmol/L (3.3-5.1); Sodium 141 mmol/L (135-145)
== END 2023-08-20 15:55 | disposition home or self-care (01) ==
LOC: HO.HHCL 15:54
PROVIDERS: Visit Provider Internal Medicine
DX: I10 Essential (primary) hypertension (principal)
CPT/HCPCS: 36415; 80048

== ENCOUNTER 2024-02-04 16:27 | Emergency (ER) | payer MEDICARE, MEDICAID, SELFPAY ==
--- NOTE | ~2024-02-04 | XR_ITS ---
EXAMINATION: XR CALCANEUS, RIGHT CLINICAL INFORMATION: Pain COMPARISON: None available. TECHNIQUE: Lateral and axial views of the right calcaneus were obtained. FINDINGS: Bones are normal anatomic alignment with no acute fracture or dislocation. Small calcaneal heel spurs seen at the attachment point of the Achilles tendon. Prominent vascular calcification noted. No radiopaque foreign body or soft tissue gas. XR/XR calcaneus RT min 2V IMPRESSION: No acute bony abnormality. Prominent vascular calcification.
[2024-02-04 17:07] VITALS: BP 141/63; PULSE 73; RESP 16; TEMP 36.6; O2SAT 95; BMI 26.4
--- NOTE | 2024-02-04 17:08 | ED_ITS ---
HPI - General Adult General Stated complaint: feet pain, cant walk Related Data Home Medications ?Medication ?Instructions ?Recorded ?Confirmed atorvastatin 80 mg tablet 80 mg PO DAILY 09/09/20 04/11/23 famotidine 40 mg tablet 20 mg PO QAM 09/09/20 04/11/23 omeprazole 20 mg capsule,delayed 20 mg PO QAM 09/09/20 04/11/23 release amlodipine 5 mg tablet 5 mg PO DAILY 10/20/21 04/11/23 alcohol swabs (Alcohol Prep Pads) 0 pad topical 11/24/21 04/11/23 blood sugar diagnostic (FreeStyle #10 ea 12/30/21 04/11/23 Lite Strips) enalapril maleate 2.5 mg tablet 2.5 mg PO DAILY 12/30/21 04/11/23 lancets 33 gauge (TRUEplus Lancets) #100 ea 12/30/21 04/11/23 metformin 500 mg tablet,extended 500 mg PO DAILY 12/30/21 04/11/23 release 24 hr zpjtqqol-ssl-qlxmz acid 0.4 1 tab PO QAM 12/15/22 04/11/23 mg-lycopene 300 mcg-lutein 250 mcg tablet (Cerovite Senior) sildenafil 100 mg tablet (Viagra) 100 mg PO DAILY PRN 01/29/23 04/11/23 gabapentin 100 mg capsule 100 mg PO 04/11/23 04/11/23 Previous Rx's ?Medication ?Instructions ?Recorded naproxen 250 mg tablet 250 mg PO BID PRN pain #20 tabs 10/01/22 metoprolol tartrate 25 mg tablet 25 mg PO BID 90 days #180 tabs 03/09/23 oxybutynin chloride 5 mg 5 mg PO BEDTIME #90 tabs 08/01/23 tablet,extended release 24 hr tamsulosin 0.4 mg capsule 0.4 mg PO DAILY #90 caps 08/01/23 aspirin 81 mg tablet,delayed 81 mg PO QAM #90 tabs 01/23/24 release Allergies Allergy/AdvReac Type Severity Reaction Status Date / Time No Known Allergies Allergy Verified 02/04/24 17:09 [facility] Past Medical History Medical History High cholesterol Diabetes Essential hypertension Atherosclerotic cardiovascular disease Surgical History Stented coronary artery History of cardiac catheterization (~08/19/14) Family History Family History Father No problems noted. Mother No problems noted. Social History Social History Alcohol intake: never Patient Tobacco Use Status: Never used Tobacco Course Course Course Narrative: RME- 73-year-old male presents for evaluation of pain to his right heel for the last week. He reports a history of peripheral vascular disease. The right lower extremity is warm, dry, well perfused. There is no skin changes, erythema, wounds to the right heel. Capillary refill under 3 seconds. Plan for x-ray of the right foot Discharge Plan Discharge Prescriptions: No Action metoprolol tartrate 25 mg tablet 25 mg PO BID 90 Days Qty: 180 3RF aspirin 81 mg tablet,delayed release (DR/EC) 81 mg PO QAM Qty: 90 3RF naproxen 250 mg tablet 250 mg PO BID PRN (Reason: pain) Qty: 20 0RF atorvastatin 80 mg tablet 80 mg PO DAILY omeprazole 20 mg capsule,delayed release(DR/EC) 20 mg PO QAM famotidine 40 mg tablet 20 mg PO QAM gabapentin 100 mg capsule 100 mg PO amlodipine 5 mg tablet 5 mg PO DAILY (DME) lancets [TRUEplus Lancets] 33 gauge misc See Rx Instructions Not Applicable BID Qty: 100 Rx Instructions: As directed metformin 500 mg tablet extended release 24 hr 500 mg PO DAILY (DME) FreeStyle Lite Strips Strip See Rx Instructions Not Applicable BID Qty: 10 Rx Instructions: As directed enalapril maleate 2.5 mg tablet 2.5 mg PO DAILY alcohol swabs [Alcohol Prep Pads] Pads, Medicated 0 pad topical Cerovite Senior 0.4 mg-300 mcg- 250 mcg tablet 1 tab PO QAM sildenafil [Viagra] 100 mg tablet 100 mg PO DAILY PRN tamsulosin 0.4 mg capsule 0.4 mg PO DAILY Qty: 90 2RF Rx Instructions: take daily at 9 pm at night oxybutynin chloride 5 mg tablet extended release 24hr 5 mg PO BEDTIME Qty: 90 3RF Rx Instructions: take at 9 pm daily Print Language: Belarusian
== END 2024-02-04 19:48 | disposition left against medical advice (07) ==
PROVIDERS: Emergency Provider Emergency Medicine; PCP Internal Medicine
DX: M79.672 Pain in left foot (principal); M79.671 Pain in right foot
CPT/HCPCS: 73650; 99281; 99283

== ENCOUNTER 2024-04-17 14:50 | Outpatient (AMB) | payer MEDICARE, MEDICAID, SELFPAY ==
[2024-04-17 14:59] VITALS: BP 130/62; PULSE 62; BMI 32.5
--- NOTE | 2024-04-17 14:59 | A.OFFVIS_ITS ---
Vital Signs 04/17/24 14:59 Height 5 ft Weight 166 lb 3.657 oz BMI 32.5 BP 130/62 Blood Pressure Location Lt brachial Position Sitting Pulse 62 Pulse Source Monitor Intake Visit Reasons: 1 YEAR FOLLOW UP Workers Compensation Claims Assistant Required: Yes Workers Compensation Claims Assistant Name: teber/cyracom/belarusian Accompanied by: Self / Same As Patient Allergies No Known Allergies Allergy (Verified 02/04/24 17:09) Medication List - Last Reconciled 04/17/24 by Kody Ramos MD alcohol swabs (Alcohol Prep Pads) 0 pad topical amlodipine 5 mg PO DAILY aspirin 81 mg PO QAM atorvastatin 80 mg PO DAILY blood sugar diagnostic (FreeStyle Lite Strips) As directed enalapril maleate 2.5 mg PO DAILY famotidine 20 mg PO QAM gabapentin 100 mg PO lancets (TRUEplus Lancets) As directed metformin ER 500 mg PO DAILY metoprolol tartrate 25 mg PO BID 90 days nzmomlmr-qvv-GT-lycopen-lutein 0.4 mg-300 mcg- 250 mcg (Cerovite Senior) 1 tab PO QAM naproxen 250 mg PO BID PRN omeprazole 20 mg PO QAM oxybutynin chloride ER 5 mg PO BEDTIME sildenafil (Viagra) 100 mg PO DAILY PRN tamsulosin 0.4 mg PO DAILY HPI Comments Details: Alan returns for follow-up regarding coronary artery disease. Overall, he states that he feels fine. No complaints like angina or shortness of breath or in fact anything along those lines. [facility], [facility] Medical History High cholesterol Diabetes Essential hypertension Atherosclerotic cardiovascular disease Surgical History Stented coronary artery History of cardiac catheterization (~08/19/14) Family History Father No problems noted. Mother No problems noted. Social History Alcohol intake: never Patient Tobacco Use Status: Never used Tobacco Review of Systems Const Denies chills, Denies fatigue, Denies fever(s), Denies frequent falls, Denies weakness, Denies weight gain and Denies weight loss ENT Denies dizziness Card Denies chest pain, Denies leg edema, Denies lightheadedness, Denies palpitations, Denies dyspnea and Denies dyspnea on exertion Resp Denies cough, Denies dyspnea and Denies dyspnea on exertion GI Denies hematochezia Musc Denies abnormal gait, Denies muscle weakness, Denies numbness, Denies radiating pain into limb and Denies tingling Neuro Denies abnormal gait, Denies dizziness, Denies frequent falls, Denies numbness, Denies tingling and Denies weakness Endo Denies fatigue and Denies palpitations Physical Exam Vital Signs: Last Vital Signs Pulse 62 04/17/24 14:59 BP 130/62 04/17/24 14:59 BMI result Body Mass Index 32.5 Const General: comfortable and no acute distress Orientation/consciousness: patient oriented x3 HEENT Other: Unremarkable Head: Yes normal to inspection Neck Neck: Yes normal visual inspection Chest Chest palpation & inspection: normal inspection of the chest Resp Auscultation: clear to auscultation bilaterally Cardio Palpation: normal PMI Heart sounds: S1 normal heart sound present, S2 normal heart sound present, no gallops, no murmurs and no rubs GI Palpation (GI): Soft to palpation Back/Spine/Pelvis Other: unremarkable Skin General skin exam: no rashes or lesions noted Neuro General: patient oriented x3 Extrem General: Yes normal to inspection Psych Mental Status: mental status grossly normal Office Procedures EKG Details: EKG with sinus rhythm at 62/Min; slight T inversion in lead 3 and AVF but otherwise unremarkable. [id number], Complete Assessment & Plan Assessment & Plan (1) Atherosclerotic cardiovascular disease: Code(s): I25.10 - Atherosclerotic heart disease of marshall coronary artery without angina pectoris Category: Medical Plan: s/p RCA stenting 2013; moderately severe disease in the left circumflex into obtuse marginal that was ballooned. Last stress test is from 2016 that showed no ischemic findings. Clinically, he has got absolutely no angina. Continue aspirin lifelong. Continue beta-blockers and high-dose statins. Last LDL cholesterol 66mg/dl. (2) Essential hypertension: Code(s): I10 - Essential (primary) hypertension Category: Medical Plan: Stable. No changes. Plan He is well aware to contact us with any complaints like angina. Discussed about this today. Coding Level of Care Code Est Pt Level 4 (29224) Diagnoses Atherosclerotic cardiovascular disease I25.10 Essential hypertension I10 CPT Codes EKG - CPT: 28130-Kvazdiqhvgaeuyedm, Complete ([id number])
== END 2024-04-17 15:17 | disposition home or self-care (01) ==
PROVIDERS: PCP Internal Medicine; Visit Provider Internal Medicine
DX: I25.10 Atherosclerotic heart disease of native coronary artery without angina pectoris (principal); I10 Essential (primary) hypertension
CPT/HCPCS: 93010; 99214

== ENCOUNTER → 2024-04-17 14:50 | Outpatient (BNVA) | payer MEDICARE, MEDICAID, SELFPAY | PROVIDERS: PCP Internal Medicine; Visit Provider Internal Medicine | DX: I25.10 Atherosclerotic heart disease of native coronary artery without angina pectoris (principal); I10 Essential (primary) hypertension | CPT/HCPCS: 93005; 99212 ==

== ENCOUNTER 2024-08-06 09:46 | Outpatient (REF) | payer MEDICARE, MEDICAID, SELFPAY ==
[2024-08-06 12:11] LABS: Alanine Aminotransferase 28 U/L (0-40); Albumin Level 4.3 g/dL (3.5-5.0); Alkaline Phosphatase 83 U/L (39-117); Anion Gap 12 (12-20); Aspartate Amino Transferase 24 U/L (5-37); Bilirubin Total 1.2 mg/dL (0.0-1.0); Blood Urea Nitrogen 24 mg/dL (9-16); Calcium 9.4 mg/dL (8.4-10.2); Carbon Dioxide 25 mmol/L (22-29); Chloride 105 mmol/L (96-108); Cholesterol 136 mg/dL (<200); Estimated Glomerular Filt Rate > 60; Glucose Random 98 mg/dL (60-115); HDL Cholesterol 38 mg/dL (>40); LDL Cholesterol Calculated 67 mg/dL (<100); Potassium 4.4 mmol/L (3.3-5.1); Sodium 138 mmol/L (135-145); Total Protein 7.6 g/dL (6.5-8.0); Triglycerides 159 mg/dL (<150)
[2024-08-06 12:24] LABS: PSA,Total (Free>4and<10) 1.71 ng/mL (0.00-4.00)
== END 2024-08-06 09:47 | disposition home or self-care (01) ==
LOC: HO.HHCL 09:46
PROVIDERS: Referring Provider Urology; Visit Provider Internal Medicine
DX: I10 Essential (primary) hypertension (principal); N40.1 Benign prostatic hyperplasia with lower urinary tract symptoms; E78.1 Pure hyperglyceridemia; N52.9 Male erectile dysfunction, unspecified; Z12.5 Encounter for screening for malignant neoplasm of prostate
CPT/HCPCS: 36415; 80053; 80061; 84153

== ENCOUNTER 2024-08-20 14:26 | Emergency (ER) | payer MEDICARE, MEDICAID, SELFPAY | END 2024-08-20 18:03 | disposition left against medical advice (07) | PROVIDERS: Emergency Provider Emergency Medicine; PCP Internal Medicine | DX: Z53.21 Procedure and treatment not carried out due to patient leaving prior to being seen by health care provider (principal) ==

== ENCOUNTER 2024-08-21 10:03 | Outpatient (REF) | payer MEDICARE, MEDICAID, SELFPAY ==
--- NOTE | ~2024-08-21 | XR_ITS ---
EXAMINATION: XR THORACIC SPINE CLINICAL INFORMATION: Pain COMPARISON: None available. TECHNIQUE: 3 views of the thoracic spine were obtained. FINDINGS: Vertebral bodies are well aligned and intervertebral disks are preserved. There is mild levoscoliosis of thoracic spine. No evidence of compression deformities, spondylolysis or spondylolisthesis seen. Visualized soft tissues are normal. XR/XR thoracic spine 2V IMPRESSION: Mild levoscoliosis thoracic spine Electronically signed by: Rebeca Eastman MD 08/21/2024 03:29 PM EDT
--- NOTE | ~2024-08-21 | XR_ITS ---
EXAMINATION: XR CHEST CLINICAL INFORMATION: Upper back pain COMPARISON: None available. TECHNIQUE: 2 views of the chest were obtained. FINDINGS: No significant abnormality is noted involving the heart, lungs, mediastinum, bony thorax or soft tissues. XR/XR chest 2V IMPRESSION: Unremarkable examination. Electronically signed by: Rebeca Eastman MD 08/21/2024 03:30 PM EDT
== END 2024-08-21 10:04 | disposition home or self-care (01) ==
LOC: HO.HHCX 10:03
PROVIDERS: Visit Provider Internal Medicine
DX: M54.9 Dorsalgia, unspecified (principal)
CPT/HCPCS: 71046; 72070

== ENCOUNTER 2025-03-20 09:26 | Outpatient (REF) | payer MEDICARE, MEDICAID, SELFPAY ==
--- OUTSIDE RECORDS SUMMARY | 2025-03-20 09:47 | XMS_ITS | Encounter Summary ---
Author Organization [employer] Address [address] [place] [address] [address] [place] [address] Care Team Providers Care Maintenance Scheduler Name Role Phone Josep Pascual MD Primary Care Provide r Encounter Details Date Type Department Care Team ([facility] Contact Info) Description 11/27/2022 Orders Only [facility] CHC MED & PEDS [address] [place], [place] [phone] Faviola Edmonds LPN Social History Tobacco Use Types Packs/Day Years Used Date Smoking Tobacco: Never Assessed Sex and Gender Information Value Date Recorded Sex Assigned at Male 08/21/2022 10:14 AM EDT Legal Sex Male 10:14 AM EDT Gender Identity Male 08/21/2022 10:14 AM EDT Sexual Orientation Straight 08/21/2022 10 :14 AM EDT COVID-19 Exposure Response Date Recorded In the last 10 days, have yo u been in contact with someone who was confirmed or suspected to have Coronavirus/COVID-19? No / Unsure 11/07/2022 3:45 PM EST documented as of this encounter Plan of Treatment Upcoming Encounters Date Type Department Care Team (Late st Contact Info) Description 04/06/2025 3:30 PM EDT Medication Management [facility] MEDICINE [address] [place], [place] [phone] Jolie Jeong, PharmD [address] [place] [address] documented as of this encounter Visit Diagnoses Not on filedocumented in this encounter Care Teams Maintenance Scheduler Relationship Specialty Start Date End Date Josep Pascual MD [address] [place] [address] PCP - General Internal Medicine 07/22/14 documented as of this encounter
[2025-03-20 12:26] LABS: Anion Gap 9 (12-20); Blood Urea Nitrogen 16 mg/dL (9-16); Calcium 9.4 mg/dL (8.4-10.2); Carbon Dioxide 29 mmol/L (22-29); Chloride 106 mmol/L (96-108); Estimated Glomerular Filt Rate 60; Glucose Random 108 mg/dL (60-115); Potassium 4.8 mmol/L (3.3-5.1); Sodium 139 mmol/L (135-145)
== END 2025-03-20 09:27 | disposition home or self-care (01) ==
LOC: HO.HHCL 09:26
PROVIDERS: Visit Provider Internal Medicine
DX: I10 Essential (primary) hypertension (principal)
CPT/HCPCS: 36415; 80048

== ENCOUNTER 2025-03-31 10:06 | Outpatient (REF) | payer MEDICARE, MEDICAID, SELFPAY ==
--- OUTSIDE RECORDS SUMMARY | 2025-03-31 11:39 | XMS_ITS | Encounter Summary ---
Author Organization [employer] Address [address] [place] [address] [address] [place] [address] Care Team Providers Care Photo Engraver Name Role Phone Josep Pascual MD Primary Care Provide r Encounter Details Date Type Department Care Team ([facility] Contact Info) Description 11/27/2022 Orders Only [facility] CHC MED & PEDS [address] [place], [place] [phone] Faviola Edmonds LPN Social History Tobacco Use [...] Description 04/06/2025 3:30 PM EDT Medication Management [facility] MEDICINE [address] [place], [place] [phone] Jolie Jeong, PharmD [address] [place] [address] documented as of this encounter Visit Diagnoses Not on filedocumented in this encounter Care Teams Photo Engraver Relationship Specialty Start Date End Date Josep Pascual MD [address] [place] [address] PCP - General Internal Medicine 07/22/14 documented as of this encounter
== END 2025-03-31 10:07 | disposition home or self-care (01) ==
LOC: HO.HHCL 10:06
PROVIDERS: Visit Provider Internal Medicine
DX: R35.1 Nocturia (principal)
CPT/HCPCS: 36415; 84153

== ENCOUNTER 2025-04-09 14:29 | Outpatient (AMB) | payer MEDICARE, MEDICAID, SELFPAY ==
--- NOTE | 2025-04-09 14:41 | MHC.OFFVIS ---
Vital Signs 04/09/25 14:44 Height 5 ft Weight 165 lb BMI 32.2 BP 110/60 Blood Pressure Location Lt brachial Position Sitting Pulse 70 Pulse Source Monitor Intake Visit Reasons: 1 yr follow up Cement Fittings Maker Required: Yes Cement Fittings Maker Name: [id number] [id number] Allergies No Known Allergies Allergy (Verified 02/04/24 17:09) Medication List - Last Reconciled 04/09/25 by Kody Ramos MD amlodipine 5 mg PO DAILY aspirin 81 mg PO QAM atorvastatin 80 mg PO DAILY blood sugar diagnostic (FreeStyle Lite Strips) As directed enalapril maleate 2.5 mg PO DAILY famotidine 20 mg PO QAM gabapentin 100 mg PO lancets (TRUEplus Lancets) As directed metformin ER 500 mg PO DAILY metoprolol tartrate 25 mg PO BID cydgigwj-xus-EV-lycopen-lutein 0.4 mg-300 mcg- 250 mcg (Cerovite Senior) 1 tab PO QAM naproxen 250 mg PO BID PRN omeprazole 20 mg PO QAM oxybutynin chloride ER 5 mg PO BEDTIME sildenafil (Viagra) 100 mg PO DAILY PRN tamsulosin 0.4 mg PO DAILY HPI Comments Details: Alan returns for follow-up regarding coronary artery disease. He has got no complaints like angina or shortness of breath or in fact anything cardiac sounding. He states he is doing fine. [facility] Medical History High cholesterol Diabetes Essential hypertension Atherosclerotic cardiovascular disease Surgical History Stented coronary artery History of cardiac catheterization (~08/19/14) Family History Father No problems noted. Mother No problems noted. Social History Alcohol intake: never Patient Tobacco Use Status: Never used Tobacco Review of Systems Const All systems reviewed & are unremarkable except as noted in HPI and below Reports as per HPI and Reports no additional complaints Eyes Reports as per HPI and Denies no additional complaints ENT Denies no additional complaints and Reports as per HPI Card Reports as per HPI, Reports no additional complaints, Denies acrocyanosis, Denies chest pain, Denies leg edema, Denies lightheadedness, Denies palpitations and Denies dyspnea Resp Reports as per HPI, Denies no additional complaints and Denies dyspnea GI Reports as per HPI and Denies no additional complaints Reports no additional complaints and Reports as per HPI Musc Reports no additional complaints and Reports as per HPI Skin/Breast Reports system reviewed and no additional complaints, except as documented Neuro Reports no additional complaints and Reports as per HPI Psych Reports no additional complaints and Reports as per HPI Endo Reports no additional complaints, Reports as per HPI and Denies palpitations Kimo/Lymph Reports no additional complaints and Reports as per HPI Aller/Immun Reports no additional complaints and Reports as per HPI Physical Exam Vital Signs: Last Vital Signs Pulse 70 04/09/25 14:44 BP 110/60 04/09/25 14:44 BMI result Body Mass Index 32.2 Const General: comfortable and no acute distress Orientation/consciousness: patient oriented x3 HEENT Other: Unremarkable Head: Yes normal to inspection Neck Neck: Yes normal visual inspection Chest Chest palpation & inspection: normal inspection of the chest Resp Auscultation: clear to auscultation bilaterally Cardio Palpation: normal PMI Heart sounds: S1 normal heart sound present, S2 normal heart sound present, no gallops, no murmurs and no rubs GI Palpation (GI): Soft to palpation Back/Spine/Pelvis Other: unremarkable Skin General skin exam: no rashes or lesions noted Neuro General: patient oriented x3 Extrem General: Yes normal to inspection Psych Mental Status: mental status grossly normal Office Procedures EKG Details: EKG shows underlying sinus rhythm at 70/Min. There is ST-elevation in lead 1/aVL and reciprocal ST-depression in lead 3 and AVF. There is also some downsloping STs in V5/V6. Compared to EKG from last year, the ST elevation is much more prominent in the inferior ST-depression is also more prominent. Changes in V5/V6 not seen last year. 39916-[id number], Complete Assessment & Plan Assessment & Plan (1) Atherosclerotic cardiovascular disease: Code(s): I25.10 - Atherosclerotic heart disease of iroquois coronary artery without angina pectoris Category: Medical Plan: s/p RCA stenting 2013; moderately severe disease in the left circumflex into obtuse marginal that was ballooned. Last stress test is from 2015 that showed no ischemic findings. Clinically, he has got no angina. However, EKG shows ST-elevation which is concerning. We will send him to ER for getting serial troponins. If they are indeed within normal limits, then we can decide on outpatient ischemic evaluation with an echocardiogram/stress test. If there is any abnormality in troponins, we will need diagnostic catheterization. Discussed with and ER physician. For meds, he is on aspirin, beta-blockers and statins. (2) Essential hypertension: Code(s): I10 - Essential (primary) hypertension Category: Medical Plan: Stable. No changes. Plan Discuss with ER physician for further assessment. Coding Level of Care Code Est Pt Level 5 (39868) Complex EM visit Add On G2211 Diagnoses Atherosclerotic cardiovascular disease I25.10 Essential hypertension I10 CPT Codes EKG - CPT: 23373-[id number], Complete ([id number])
[2025-04-09 14:44] VITALS: BP 110/60; PULSE 70; BMI 32.2
--- OUTSIDE RECORDS SUMMARY | 2025-04-09 15:45 | XMS_ITS | Encounter Summary ---
Author Organization [employer] Address [address] [place] [address] Care Team Providers Care Head Packager Name Role Phone Josep Pascual MD Primary Care Provide r Encounter Details Date Type Department Care Team (Late st Contact Info) Description 11/27/2022 Orders Only [facility] [address] [place], [place] [id number] Faviola Edmonds LPN Social History Tobacco Use [...] as of this encounter Plan of Treatment Not on file documented as of this encounter Visit Diagnoses Not on filedocumented in this encounter Care Teams Head Packager Relationship Specialty Start Date End Date Jospe Pascual MD [address] [place] [id number] PCP - General Internal Medicine 07/22/14 documented as of this encounter
== END 2025-04-09 15:27 | disposition home or self-care (01) ==
PROVIDERS: PCP Internal Medicine; Visit Provider Internal Medicine
DX: I11.9 Hypertensive heart disease without heart failure (principal); I25.10 Atherosclerotic heart disease of native coronary artery without angina pectoris; R94.31 Abnormal electrocardiogram [ECG] [EKG]
CPT/HCPCS: 93010; 99215; G2211

== ENCOUNTER → 2025-04-09 14:29 | Outpatient (BNVA) | payer MEDICARE, MEDICAID, SELFPAY | PROVIDERS: PCP Internal Medicine; Visit Provider Internal Medicine | DX: I25.10 Atherosclerotic heart disease of native coronary artery without angina pectoris (principal); I10 Essential (primary) hypertension; R94.31 Abnormal electrocardiogram [ECG] [EKG]; I21.3 ST elevation (STEMI) myocardial infarction of unspecified site | CPT/HCPCS: 93005; 99212 ==

== ENCOUNTER 2025-04-09 16:19 | Observation (INO) | payer MEDICARE, MEDICAID, SELFPAY ==
--- NOTE | ~2025-04-09 | XR_ITS ---
CLINICAL HISTORY: cp 1 view chest x-ray Comparison: None provided Findings: The lungs are clear. Heart size is normal. No acute fracture. IMPRESSION: 1. No acute findings. This document has been electronically signed by: Kiarra Turcios MD on 04/09/2025 18:04:17
--- NOTE | 2025-04-09 16:22 | ECG_ITS ---
Test Reason : RULE OUT STEMI Blood Pressure : */* mmHG Vent. Rate : 69 BPM Atrial Rate : 69 BPM P-R Int : 152 ms QRS Dur : 94 ms QT Int : 396 ms P-R-T Axes : 53 -27 12 degrees QTcB Int : 424 ms Normal sinus rhythm Minimal voltage criteria for LVH, may be normal variant ( R in aVL ) Borderline ECG When compared with ECG of 06-Mar-2017 09:30, QRS axis Shifted left Referred By: Mirian Sullivan Electronically Signed By: Alexander Johnson
[2025-04-09 16:33] VITALS: BP 135/57; PULSE 69; RESP 20; TEMP 36.7; O2SAT 97; BMI 27.3
[2025-04-09 16:34] LABS: MANUAL DIFF FLAG NO
[2025-04-09 16:37] LABS: Basophils Percent Auto 0.5 % (0-2); Eosinophils Absolute Auto 0.3 X10*3/uL (0.0-0.4); Eosinophils Percent Auto 3.6 % (0-4); Hematocrit 33.4 % (42.0-52.0); Hemoglobin 11.4 g/dl (14.0-18.0); Imm Gran Abs Auto 0.02 X10*3/uL (0.00-0.03); Imm Gran Pct Auto 0.3 % (0.0-0.4); Lymphocytes Absolute Auto 2.7 X10*3/uL (1.2-4.9); Lymphocytes Percent Auto 37.2 % (20-40); Mean Corpuscular HGB Conc 34.1 g/dl (31.0-36.0); Mean Corpuscular Hemoglobin 31.8 pg (27.0-33.0); Mean Corpuscular Volume 93.3 fL (80.0-98.0); Mean Platelet Volume 9.3 fL (9.4-12.4); Monocytes Absolute Auto 0.5 X10*3/uL (0.1-1.2); Monocytes Percent Auto 7.1 % (2-11); Neutrophils Absolute Auto 3.7 x10*3/uL (2.0-8.3); Neutrophils Percent Auto 51.3 % (45-73); Platelet Count 271 X10*3/uL (160-400); Red Blood Count 3.58 X10*6/uL (4.60-5.80); Red Cell Distribution Width 12.2 % (11.0-16.0); White Blood Count 7.3 X10*3/uL (4.8-10.8)
[2025-04-09 16:54] LABS: Alanine Aminotransferase 28 U/L (0-40); Albumin Level 4.2 g/dL (3.5-5.0); Alkaline Phosphatase 80 U/L (39-117); Anion Gap 11 (12-20); Aspartate Amino Transferase 33 U/L (5-37); Bilirubin Direct 0.3 mg/dL (0.0-0.5); Blood Urea Nitrogen 23 mg/dL (9-16); Calcium 9.3 mg/dL (8.4-10.2); Carbon Dioxide 28 mmol/L (22-29); Chloride 106 mmol/L (96-108); Creatinine Clr Calc Pharmacy 47.1; Estimated Glomerular Filt Rate 53; Glucose Random 107 mg/dL (60-115); Lipase 39 U/L (8-78); Potassium 4.4 mmol/L (3.3-5.1); Sodium 141 mmol/L (135-145); Total Protein 7.2 g/dL (6.5-8.0)
--- NOTE | 2025-04-09 17:00 | PC.NURSE ---
patient a&ox3, ambulatory with steady gait, pt rr equal/non labored, denies pain/discomfort, ekg performed-nsr, supply chain planner applied, vss, iv inserted, labs drawn, call camacho within reach, plan of care ongoing.
[2025-04-09 17:01] LABS: B Type Natriuretic Peptide 48 pg/mL (<100); Troponin-I High Sensitivity 3.4 ng/L (<3.5-35.0)
--- NOTE | 2025-04-09 17:32 | ED.GENADULT ---
HPI - General Adult General Chief complaint: Arrhythmia/Palpitations Stated complaint: sent by dr with EKG Time Seen by Provider: 04/09/25 16:27 Source: patient, old records reviewed and lcsw Mode of arrival: wheelchair Limitations: no limitations History of Present Illness ED Provider: DR. Murphy HPI narrative: 74-year-old male with history of coronary artery disease s/p RCA stent in 2013, brought in from Dr. Ramos's office for abnormal EKG. Patient was scheduled to have routine follow-up with Dr. Ramos for coronary artery disease, patient did not have a complaints today, no chest pain, no SOB, when a routine EKG done at Dr. Ramos's office it showed ST-elevation with a concern of acute PR patient was sent to the ED for further evaluation, patient reports no symptoms in particular no chest pain, shortness of breath or diaphoresis. First EKG done in the ED showed normal sinus rhythm with no sign of ST-elevation. Labs were sent showed normal labs and normal troponin. Related Data Home Medications ?Medication ?Instructions ?Recorded ?Confirmed atorvastatin 80 mg tablet 80 mg PO DAILY 09/09/20 04/09/25 omeprazole 20 mg capsule,delayed 20 mg PO DAILY@0630 09/09/20 04/09/25 release amlodipine 5 mg tablet 5 mg PO BEDTIME 10/20/21 04/09/25 blood sugar diagnostic (FreeStyle #10 ea 12/30/21 04/09/25 Lite Strips) lancets 33 gauge (TRUEplus Lancets) #100 ea 12/30/21 04/09/25 metformin 500 mg tablet,extended 500 mg PO DAILY@1700 12/30/21 04/09/25 release 24 hr sildenafil 100 mg tablet (Viagra) 100 mg PO DAILY PRN Erectile 01/29/23 04/09/25 Dysfunction gabapentin 100 mg capsule 100 mg PO BEDTIME 04/11/23 04/09/25 aspirin 81 mg tablet,delayed 81 mg PO DAILY 04/09/25 04/09/25 release diclofenac sodium 1 % topical gel 4 g topical BID 04/09/25 04/09/25 enalapril maleate 5 mg tablet 5 mg PO DAILY 04/09/25 04/09/25 sqyifgqf-ixo-anapd acid 0.4 1 tab PO DAILY 04/09/25 04/09/25 mg-lycopene 300 mcg-lutein 250 mcg tablet (Cerovite Senior) Previous Rx's ?Medication ?Instructions ?Recorded metoprolol tartrate 25 mg tablet 25 mg PO BID #180 tabs 03/30/25 Allergies Allergy/AdvReac Type Severity Reaction Status Date / Time No Known Allergies Allergy Verified 04/09/25 16:35 Review of Systems Review of Systems: All other systems are reviewed and are negative Constitutional: Reports as per HPI and Reports no additional constitutional complaints Eyes: Reports as per HPI and Reports no additional eye complaints Reports system reviewed and no additional complaints, except as documented Cardiovascular: Reports as per HPI and Reports no additional cardiovascular complaints Respiratory: Reports as per HPI and Reports no additional respiratory complaints Gastrointestinal: Reports as per HPI and Reports no additional gastrointestinal complaints Genitourinary: Reports no additional female genitourinary complaints Musculoskeletal: Reports no additional musculoskeletal complaints Skin/Breast: Reports system reviewed and no additional complaints, except as docu Psychiatric: Reports no additional psychiatric complaints Endocrine: Reports no additional endocrine complaints Hematologic/Lymphatic: Reports no additional hematologic/lymphatic complaints Allergic/Immunologic: Reports no additional allergic/immunologic complaints Reports system reviewed and no additional complaints, except as documented and Reports Abnormal speech present [facility] Past Medical History Medical History High cholesterol Diabetes Essential hypertension Atherosclerotic cardiovascular disease Surgical History Stented coronary artery History of cardiac catheterization (~08/19/14) Family History Family History Father No problems noted. Mother No problems noted. Social History Social History Alcohol intake: never Patient Tobacco Use Status: Never used Tobacco Smoked in Last 30 Days: Yes Use of substances other than those prescribed or required for medical reasons: No Advance Directives: No Advance Directives Information Provided: Yes Do you have a plan to hurt others: No Plan Physical Exam ED Vital Signs: Vital Signs - 24 hr 04/09/25 16:33 Temperature 98.1 F Pulse Rate 69 Respiratory Rate 20 Blood Pressure 135/57 L Pulse Oximetry 97 Oxygen Delivery Method Room Air BMI result Body Mass Index 27.3 Vital signs have been reviewed and appear to be correct. Blood pressure elevated. Heart rate normal. Respiratory rate normal. Temperature normal. Oxygen saturation normal. Appearance: Alert. Oriented X3. No acute distress. Head: Normal external exam. Normocephalic. Atraumatic. No Grimm signs noted. No raccoon eyes noted Eyes: PERRLA. EOMI. Conjunctiva and sclera normal. Eyelids normal. ENT: TM's Normal. Pharynx normal. Uvula midline. Moist mucous membranes. No trismus noted. No drooling noted. No muffled voice noted. Neck: Normal inspection. Neck supple. FROM. No adenopathy. Thyroid Normal. No meningeal signs. No neck mass noted. CVS: Normal heart rate and rhythm. Heart sound normal. No murmurs noted. Pulses normal throughout. Respiratory: No respiratory distress. Painless inspiration. Breath sounds normal. No wheezes/rales/rhonchi noted. Chest nontender. No accessory muscle usage noted or decreased air movement noted. Abdomen: Soft and nontender. Bowel sounds normal in all 4 quadrants. No distention noted. No organomegaly noted. No visible injury noted. Back: No CVA tenderness. Full range of motion noted. Skin: Skin warm and dry. Normal skin color. Normal skin turgor. No rashes/lesions/lacerations noted. Extremities: No lower extremity edema. Extremities exhibit normal range of motion. Extremities nontender. Neuro: Oriented X 3. Cranial nerve exam: II-XII are grossly intact No motor deficit. No sensory deficit. Reflexes normal. Course Reevaluation(s) Reevaluation #1: No chest pain, normal troponin, normal EKG with no ST-elevation was sent from Dr. Ramos's office for abnormal EKG (possibly lead misplacement), the above finding were discussed with Dr. Johnson on-call for cardiology who recommended to give the patient aspirin and observe him overnight. Time: 18:00 Medications Administered Discontinued Medications Generic Name Dose Route Start Last Admin Trade Name Freq PRN Reason Stop Dose Admin Aspirin 325 mg 04/09/25 17:44 04/09/25 18:06 Aspirin Enteric Coated 325 Mg Tablet.Dr NESBITT 04/09/25 17:45 325 mg ONCE ONE Administration Medical Decision Making Differential Diagnosis Differential Diagnoses: The differential diagnosis associated with the presentation includes (ACS, abnormal EKG, electrolyte derangement, elevated troponin, severe anemia.) Admission/Observation Consideration of admission/observation: Escalation of care including admission/observation considered Consult Healthcare Provider Management of the patient was discussed with: Medical Translator (Dr. Johnson) Lab Data MDM Lab Attestation statement: I reviewed the patient's lab results. 04/09/25 16:30 04/09/25 16:30 Labs: Lab Results 04/09/25 Range/Units 16:30 WBC 7.3 (4.8-10.8) X10*3/uL RBC 3.58 L (4.60-5.80) X10*6/uL Hgb 11.4 L (14.0-18.0) g/dl Hct 33.4 L (42.0-52.0) % MCV 93.3 (80.0-98.0) fL MCH 31.8 (27.0-33.0) pg MCHC 34.1 (31.0-36.0) g/dl RDW 12.2 (11.0-16.0) % Plt Count 271 (160-400) X10*3/uL MPV 9.3 L (9.4-12.4) fL Immature Gran % (Auto) 0.3 (0.0-0.4) % Neut % (Auto) 51.3 (45-73) % Lymph % (Auto) 37.2 (20-40) % [place] % (Auto) 7.1 (2-11) % Eos % (Auto) 3.6 (0-4) % Baso % (Auto) 0.5 (0-2) % Lymph # (Auto) 2.7 (1.2-4.9) X10*3/uL [place] # (Auto) 0.5 (0.1-1.2) X10*3/uL Eos # (Auto) 0.3 (0.0-0.4) X10*3/uL Baso # (Auto) 0.0 (0.0-0.2) X10*3/uL Abs Immat Gran (auto) 0.02 (0.00-0.03) X10*3/uL Absolute Neuts (auto) 3.7 (2.0-8.3) x10*3/uL Absolute Nucleated RBC 0.000 (0.0-0.012) X10*3/uL Nucleated RBC % (auto) 0.0 (0.0-0.2) /100WBC Sodium 141 (135-145) mmol/L Potassium 4.4 (3.3-5.1) mmol/L Chloride 106 (96-108) mmol/L Carbon Dioxide 28 (22-29) mmol/L Anion Gap 11 L (12-20) BUN 23 H (9-16) mg/dL Creatinine 1.32 (0.5-1.4) mg/dL Estim Creat Clear Calc 47.1 Estimated GFR 53 Random Glucose 107 (60-115) mg/dL Calcium 9.3 (8.4-10.2) mg/dL Total Bilirubin 1.0 (0.0-1.0) mg/dL Direct Bilirubin 0.3 (0.0-0.5) mg/dL AST 33 (5-37) U/L ALT 28 (0-40) U/L Alkaline Phosphatase 80 (39-117) U/L Troponin I High Sens 3.4 (<3.5-35.0) ng/L B-Natriuretic Peptide 48 (<100) pg/mL Total Protein 7.2 (6.5-8.0) g/dL Albumin 4.2 (3.5-5.0) g/dL Lipase 39 (8-78) U/L Independent Interpretation I performed an independent interpretation of an: Plain X-Ray (Chest: No acute intrathoracic pathology.) Radiology Impression Discussion of test interpretation with radiology: I have reviewed the radiologist's reading. Discharge Plan Discharge Clinical Impression: Abnormal EKG Patient Disposition: Admitted As Inpatient
[2025-04-09 18:00] VITALS: BP 153/57; PULSE 74; RESP 16; TEMP 37.1; O2SAT 100
--- NOTE | 2025-04-09 18:05 | PM.IMHP ---
History of Present Illness Date of Service: 04/09/25 [facility] Chief Complaint: abnormal ekg This is a 74-year-old Greenlandic-speaking male who was sent to the emergency department from the cardiology clinic. Patient was being seen for routine follow-up exam. EKG showed ST-elevation in lead 1/aVL which seemed more prominent than EKG from last year. For this reason he was sent to the emergency department for cardiac enzymes. He did not have any chest pain shortness of breath or any anginal symptoms. In the emergency department for set of cardiac enzymes was negative. The case was discussed with Cardiology who recommended admitting the patient overnight for observation. Review of Systems Review of Systems: Yes all other systems are reviewed and are negative Constitutional: Constitutional: Denies chills and Denies fever(s) Cardiovascular: Cardiovascular: Denies chest pain, Denies palpitations and Denies dyspnea Respiratory: Respiratory: Denies dyspnea Endocrine: Endocrine: Denies palpitations [facility] Medical History High cholesterol Diabetes Essential hypertension Atherosclerotic cardiovascular disease Family History Father No problems noted. Mother No problems noted. Surgical History Stented coronary artery History of cardiac catheterization (~08/19/14) Social History Alcohol intake: never Patient Tobacco Use Status: Never used Tobacco Smoked in Last 30 Days: Yes Use of substances other than those prescribed or required for medical reasons: No Advance Directives: No Advance Directives Information Provided: Yes Do you have a plan to hurt others: No Plan Meds Allergies Allergy/AdvReac Type Severity Reaction Status Date / Time No Known Allergies Allergy Verified 04/09/25 16:35 Active Medications: Current Medications Acetaminophen (Acetaminophen 325 Mg Tablet) 650 mg PO Q6H PRN PRN Reason: Pain, Mild 1-3,fever,headache Calcium Carbonate (Calcium Carbonate 750 Mg Tab.Chew) 750 mg PO Q4H PRN PRN Reason: Heartburn Enoxaparin Sodium (Enoxaparin Sodium 40 Mg/0.4 Ml Syringe) 40 mg SUBCUT Q24H ERIKA Magnesium Hydroxide (Milk Of Magnesia 30 Ml Oral.Susp) 30 ml PO DAILY PRN PRN Reason: Constipation Melatonin (Melatonin 3 Mg Tablet) 6 mg PO BEDTIME PRN PRN Reason: Insomnia Sodium Chloride (0.9 % Sodium Chloride Flush 3 Ml Syringe) 3 ml IVFLUSH QSHIFT ERIKA Home Medications ?Medication ?Instructions ?Recorded ?Confirmed ?Last Taken ?Type atorvastatin 80 mg tablet 80 mg PO DAILY 09/09/20 04/09/25 Unknown History omeprazole 20 mg capsule,delayed 20 mg PO DAILY@0630 09/09/20 04/09/25 Unknown History release amlodipine 5 mg tablet 5 mg PO BEDTIME 10/20/21 04/09/25 Unknown History blood sugar diagnostic (FreeStyle #10 ea 12/30/21 04/09/25 Unknown History Lite Strips) lancets 33 gauge (TRUEplus Lancets) #100 ea 12/30/21 04/09/25 Unknown History metformin 500 mg tablet,extended 500 mg PO DAILY@1700 12/30/21 04/09/25 Unknown History release 24 hr sildenafil 100 mg tablet (Viagra) 100 mg PO DAILY PRN Erectile 01/29/23 04/09/25 Unknown History Dysfunction gabapentin 100 mg capsule 100 mg PO BEDTIME 04/11/23 04/09/25 Unknown History aspirin 81 mg tablet,delayed 81 mg PO DAILY 04/09/25 04/09/25 Unknown History release diclofenac sodium 1 % topical gel 4 g topical BID 04/09/25 04/09/25 Unknown History enalapril maleate 5 mg tablet 5 mg PO DAILY 04/09/25 04/09/25 Unknown History tphxvaur-xcn-itayp acid 0.4 1 tab PO DAILY 04/09/25 04/09/25 Unknown History mg-lycopene 300 mcg-lutein 250 mcg tablet (Cerovite Senior) Physical Exam Vital Signs and Narrative: Vital Signs: Last Vital Signs Temp 98.1 F 04/09/25 16:33 Pulse 69 04/09/25 16:33 Resp 20 04/09/25 16:33 BP 135/57 L 04/09/25 16:33 Pulse Ox 97 04/09/25 16:33 O2 Del Method Room Air 04/09/25 16:33 BMI result Body Mass Index 27.3 Const: General: cooperative, comfortable, no acute distress, alert and awake Nutritional Appearance: average body habitus Orientation/consciousness: patient oriented x3 Resp: Effort & Inspection: normal respiratory effort and able to speak in complete sentences Auscultation: clear to auscultation bilaterally Cardio: Rate: regular rate GI: Palpation (GI): not soft and nontender Neuro: General: patient oriented x3, No moves all extremities and No CN's II-XI intact bilaterally Results Labs 04/09/25 16:30 04/09/25 16:30 Labs: Laboratory Results - last 24 hr 04/09/25 16:30 MCV 93.3 MCH 31.8 MCHC 34.1 RDW 12.2 Plt Count 271 MPV 9.3 L Immature Gran % (Auto) 0.3 Neut % (Auto) 51.3 Lymph % (Auto) 37.2 [place] % (Auto) 7.1 Eos % (Auto) 3.6 Baso % (Auto) 0.5 Lymph # (Auto) 2.7 [place] # (Auto) 0.5 Eos # (Auto) 0.3 Baso # (Auto) 0.0 Abs Immat Gran (auto) 0.02 Absolute Neuts (auto) 3.7 Absolute Nucleated RBC 0.000 Nucleated RBC % (auto) 0.0 Anion Gap 11 L Estim Creat Clear Calc 47.1 Estimated GFR 53 Random Glucose 107 Calcium 9.3 Total Bilirubin 1.0 Direct Bilirubin 0.3 AST 33 ALT 28 Alkaline Phosphatase 80 Troponin I High Sens 3.4 B-Natriuretic Peptide 48 Total Protein 7.2 Albumin 4.2 Lipase 39 Assessment and Plan (1) Abnormal EKG: Status: Acute Plan This is a 74-year-old male with history of coronary artery disease status post RCA stent in 2013, prediabetes, hypertension who was sent from the cardiology clinic due to abnormal EKG Abnormal EKG History of CAD with RCA stent in [address]-elevation, repeat EKG with no ST elevation. Cardiac enzymes negative. No chest pain Second set of cardiac enzymes pending Cardiology consult pending Continue aspirin, statin, beta-zurdo Hypertension Continue baseline medications Continue Norvasc, enalapril, metoprolol Prediabetes Patient denies diabetes Follow-up point of care blood sugar Hold metformin DVT prophylaxis-Lovenox Quality Stroke Does the patient have a stroke diagnosis?: No VTE Prior VTE?: No VTE Risk Level:: Medical - moderate - high VTE Device Contraindication: N/A - Device Ordered VTE Drug Contraindication: N/A - Med Ordered
[2025-04-09] MEDS: Aspirin Enteric Coated 325 MG TABLET.DR PO (18:06)
--- NOTE | 2025-04-09 18:27 | PHA.MEDREC ---
Addendum entered by Nahomi Lechuga RPh 04/09/25 18:40: [facility] reviewed Original Note: Pharmacy Consult ? Medication Reconciliation Pharmacy has completed the medication reconciliation. Patient is a poor historian. Called and spoke to daughter to confirm med list, however daughter didn't know anything about her fathers medications. Utilized claims to confirm med list.
[2025-04-09 20:00] VITALS: BP 150/60; PULSE 77; RESP 16; O2SAT 100
[2025-04-09 20:29] VITALS: BP 152/64; PULSE 80
[2025-04-09] MEDS: Metoprolol Tartrate 25 MG TABLET PO (20:29)
[2025-04-09] MEDS: Atorvastatin Calcium 80 MG TABLET PO (20:29)
[2025-04-09] MEDS: Gabapentin 100 MG CAPSULE PO (20:29)
[2025-04-09 20:31] VITALS: BP 152/64
[2025-04-09] MEDS: Enoxaparin Sodium 40 MG/0.4 ML SYRINGE SUBCUT (20:31)
[2025-04-09] MEDS: amLODIPine Besylate 5 MG TABLET PO (20:31)
[2025-04-09 20:59] LABS: Glucose, Whole Blood 92 mg/dL (60-115)
[2025-04-09 22:00] VITALS: BP 166/79; PULSE 75; RESP 12; TEMP 36.9; O2SAT 97
[2025-04-10] VITALS (8 sets, daily range): BP systolic 131–165; BP diastolic 62–78; PULSE 55–79; RESP 14–20; TEMP 36.1–36.9; O2SAT 94–99; BMI 26.7
[2025-04-10 03:18] LABS: Appearance Urine Clear; Color Urine Yellow; Glucose Urine UA Negative (Negative); Leukocyte Esterase Urine Negative (Negative); Nitrite Urine Negative (Negative); PH 7.5 (5.0-9.0); Urine Blood Negative (Negative); Urine Ketones Negative (Negative); Urine Protein Negative (Neg-Trace)
--- NOTE | 2025-04-10 04:49 | MHC.EDTECH ---
Patient was moved from stretcher to a hospital bed. Patient expressed gratitude and feeling much more comfortable.
[2025-04-10] MEDS: Omeprazole 20 MG CAPSULE.DR PO (06:40)
[2025-04-10 07:07] LABS: Glucose, Whole Blood 95 mg/dL (60-115)
[2025-04-10] MEDS: Aspirin Enteric Coated 81 MG TABLET.DR PO (08:21)
[2025-04-10] MEDS: Multivitamin TABLET 1 TAB PO (08:21)
[2025-04-10] MEDS: 0.9 % Sodium Chloride Flush 3 ML SYRINGE IVFLUSH (08:21)
[2025-04-10] MEDS: Metoprolol Tartrate 25 MG TABLET PO (08:21)
--- NOTE | 2025-04-10 09:10 | PC.NURSE ---
enlalapril requested from pharmacy at [phone]
--- NOTE | 2025-04-10 09:32 | CA_ITS ---
Acquisition Time: 2025-04-10 11:30:05 Total Exercise Time: 00:07:00 Test Indications: Abnormal ECG Medications: SEE EMAR Protocol: SUNDAR Max HR: 113 BPM 77% of Pred: 145 BPM Max BP: 138/68 mmHG Max Work Load: 7.0 METS Exercise stress test with exercise 7 mins of Sundar Protocol, held at Stage 2 due to fatigue, achieving 77% MPHR, requesting to stop, with reports of SOB, no chest pain, without any arrythmias, with hypotensive response initially that improved during exercise. Without EKG changes meeting criteria for ischemia. In recovery, breathing returned to baseline. Echo images obtained by tech at rest and post peak exercise. Definity contrast utilized. Test reviewed with Dr. Johnson. Referred By: Haven Alfaro Electronically Signed By: Nicola Brannon
--- NOTE | 2025-04-10 12:37 | P.CONCA_ITS ---
History of Present Illness History of Present Illness Date of Service: 04/10/25 Requesting physician: Haven Alfaro Chief complaint: abnormal ekg Narrative: [age] year gentleman with known history of coronary disease with previous RCA PCI in 2013 and [id number] stenosis in the OM vessel. He came for routine visit yesterday to Cardiology office and EKG performed showed ST elevation in lead 1 and aVL with reciprocal changes in lead 3 and AVF. He also had nonspecific ST changes in lead V5 and 6. He at that time denied any chest discomfort shortness of breath. In fact he was just there for a routine visit. After some discussion he was sent to the emergency department where repeat EKG was performed which showed no ST elevations or reciprocal changes and his biomarkers were negative. Given the fact that the changes were dynamic we admitted him for further workup. He is saying that he has no symptoms. Denying any chest pain or shortness of breath at the time of interview also. As mentioned he has known history of coronary disease with previous RCA PCI. After discussion we sent him for exercise stress echo. He did not have any dynamic EKG changes and his echo images at rest and post stress were also normal. FORMERLY [facility], [facility] Past Medical History Medical History High cholesterol Diabetes Essential hypertension Atherosclerotic cardiovascular disease Family History Family History Father No problems noted. Mother No problems noted. Surgical History Surgical History Stented coronary artery History of cardiac catheterization (~08/19/14) Social History Social History Alcohol intake: never Patient Tobacco Use Status: Never used Tobacco Smoked in Last 30 Days: Yes Use of substances other than those prescribed or required for medical reasons: No Currently Displaying Signs/Symptoms of Drug Intoxication Withdrawal: No Advance Directives: No Advance Directives Information Provided: Yes Do you have a plan to hurt others: No Plan Nutrition Risks: No Nutritional Risk service: No Meds Allergies Allergy/AdvReac Type Severity Reaction Status Date / Time No Known Allergies Allergy Verified 04/09/25 16:35 Active Medications: Current Medications Acetaminophen (Acetaminophen 325 Mg Tablet) 650 mg PO Q6H PRN PRN Reason: Pain, Mild 1-3,fever,headache Amlodipine Besylate (Amlodipine Besylate 5 Mg Tablet) 5 mg PO BEDTIME [facility]; Protocol Last Admin: 04/09/25 20:31 Dose: 5 mg Aspirin (Aspirin Enteric Coated 81 Mg Tablet.) 81 mg PO DAILY [facility] Last Admin: 04/10/25 08:21 Dose: 81 mg Atorvastatin Calcium (Atorvastatin Calcium 80 Mg Tablet) 80 mg PO BEDTIME [facility] Last Admin: 04/09/25 20:29 Dose: 80 mg Calcium Carbonate (Calcium Carbonate 750 Mg Tab.Chew) 750 mg PO Q4H PRN PRN Reason: Heartburn Dextrose (Dextrose 50 % 25 Gm/50 Ml Syringe) 25 gm IVPUSH Q15M PRN; Protocol PRN Reason: per Hypoglycemia Standing Ord. Enalapril Maleate (Enalapril Maleate 5 Mg Tablet) 5 mg PO DAILY [facility]; Protocol Enoxaparin Sodium (Enoxaparin Sodium 40 Mg/0.4 Ml Syringe) 40 mg SUBCUT Q24H [facility] Last Admin: 04/09/25 20:31 Dose: 40 mg Gabapentin (Gabapentin 100 Mg Capsule) 100 mg PO BEDTIME [facility] Last Admin: 04/09/25 20:29 Dose: 100 mg Glucose (Glucose Gel 15 Gm Gel..Gram.) 15 gm PO Q15M PRN; Protocol PRN Reason: per Hypoglycemia Standing Ord. Magnesium Hydroxide (Milk Of Magnesia 30 Ml Oral.Susp) 30 ml PO DAILY PRN PRN Reason: Constipation Melatonin (Melatonin 3 Mg Tablet) 6 mg PO BEDTIME PRN PRN Reason: Insomnia Metoprolol Tartrate (Metoprolol Tartrate 25 Mg Tablet) 25 mg PO BID [facility]; Protocol Last Admin: 04/10/25 08:21 Dose: 25 mg Multivitamins/Vitamin C (Multivitamin Tablet) 1 tab PO DAILY [facility] Last Admin: 04/10/25 08:21 Dose: 1 tab Omeprazole (Omeprazole 20 Mg Capsule.) 20 mg PO DAILY@0630 [facility] Last Admin: 04/10/25 06:40 Dose: 20 mg Sodium Chloride (0.9 % Sodium Chloride Flush 3 Ml Syringe) 3 ml IVFLUSH QSHIFT [facility] Last Admin: 04/10/25 08:21 Dose: 3 ml Home Medications ?Medication ?Instructions ?Recorded ?Confirmed ?Last Taken ?Type atorvastatin 80 mg tablet 80 mg PO DAILY 09/09/2003/22 Unknown History omeprazole 20 mg capsule,delayed 20 mg PO DAILY@0630 1 11/09/19 04/09/25 Unknown History release amlodipine 5 mg tablet 5 mg PO BEDTIME 10/20/21 Unknown History blood sugar diagnostic (FreeStyle #10 ea 12/30/2103/22 Unknown History Lite Strips) lancets 33 gauge (TRUEplus Lancets) #100 ea 12/30/21 0 04/09/25 Unknown History metformin 500 mg tablet,extended 500 mg PO DAILY@1700 12/30/21 04/09/25 Unknown History release 24 hr sildenafil 100 mg tablet (Viagra) 100 mg PO DAILY PRN Erectile 01/29/23 04/09/25 Unknown History Dysfunction gabapentin 100 mg capsule 100 mg PO BEDTIME 04/11/23 0 04/09/25 Unknown History aspirin 81 mg tablet,delayed 81 mg PO DAILY 04/09/25 0 04/09/25 Unknown History release diclofenac sodium 1 % topical gel 4 g topical BID 03/2204/09/25 Unknown History enalapril maleate 5 mg tablet 5 mg PO DAILY 04/09/25 0 04/09/25 Unknown History xgfoywtj-dfg-[id number] acid 0.4 1 tab PO DAILY 04/09/25 Unknown History mg-lycopene 300 mcg-lutein 250 mcg tablet (Cerovite Senior) Physical Exam 2 Vital Signs: Vital Signs: Last Vital Signs Temp 98.5 F 04/10/25 09:45 Pulse 62 04/10/25 09:45 Resp 14 04/10/25 09:45 BP 165/74 H 04/10/25 09:45 Pulse Ox 96 04/10/25 09:45 O2 Del Method Room Air 04/10/25 09:45 BMI result Body Mass Index 26.7 GENERAL APPEARANCE: in no acute distress, pleasant. NECK: no carotid bruit, no jugular venous distention. SKIN: no suspicious lesions, warm and dry. HEART: no murmurs, regular rate and rhythm. LUNGS: clear to auscultation bilaterally. ABDOMEN: soft, nontender. EXTREMITIES: no edema. PERIPHERAL PULSES: equal. NEUROLOGIC: No gross deficits, AAO X 3 Objective Labs and Meds 04/09/25 16:30 04/09/25 16:30 Lab results: Laboratory Results - last 24 hr 04/09/25 04/09/25 04/09/25 16:30 19:28 20:56 WBC 7.3 RBC 3.58 L Hgb 11.4 L Hct 33.4 L MCV 93.3 MCH 31.8 MCHC 34.1 RDW 12.2 Plt Count 271 MPV 9.3 L Immature Gran % (Auto) 0.3 Neut % (Auto) 51.3 Lymph % (Auto) 37.2 [place] % (Auto) 7.1 Eos % (Auto) 3.6 Baso % (Auto) 0.5 Lymph # (Auto) 2.7 [place] # (Auto) 0.5 Eos # (Auto) 0.3 Baso # (Auto) 0.0 Abs Immat Gran (auto) 0.02 Absolute Neuts (auto) 3.7 Absolute Nucleated RBC 0.000 Nucleated RBC % (auto) 0.0 Sodium 141 Potassium 4.4 Chloride 106 Carbon Dioxide 28 Anion Gap 11 L BUN 23 H Creatinine 1.32 Estim Creat Clear Calc 47.1 Estimated GFR 53 POC Glucose 92 Random Glucose 107 Calcium 9.3 Total Bilirubin 1.0 Direct Bilirubin 0.3 AST 33 ALT 28 Alkaline Phosphatase 80 Troponin I High Sens 3.4 3.0 B-Natriuretic Peptide 48 Total Protein 7.2 Albumin 4.2 Lipase 39 Urine Color Urine Appearance Urine pH Ur Specific [place] Urine Protein Urine Glucose (UA) Urine Ketones Urine Blood Urine Nitrite Ur Leukocyte Esterase 04/10/25 04/10/25 03:10 07:01 WBC RBC Hgb Hct MCV MCH MCHC RDW Plt Count MPV Immature Gran % (Auto) Neut % (Auto) Lymph % (Auto) [place] % (Auto) Eos % (Auto) Baso % (Auto) Lymph # (Auto) [place] # (Auto) Eos # (Auto) Baso # (Auto) Abs Immat Gran (auto) Absolute Neuts (auto) Absolute Nucleated RBC Nucleated RBC % (auto) Sodium Potassium Chloride Carbon Dioxide Anion Gap BUN Creatinine Estim Creat Clear Calc Estimated GFR POC Glucose 95 Random Glucose Calcium Total Bilirubin Direct Bilirubin AST ALT Alkaline Phosphatase Troponin I High Sens B-Natriuretic Peptide Total Protein Albumin Lipase Urine Color Yellow Urine Appearance Clear Urine pH 7.5 Ur Specific [place] 1.010 Urine Protein Negative Urine Glucose (UA) Negative Urine Ketones Negative Urine Blood Negative Urine Nitrite Negative Ur Leukocyte Esterase Negative Assessment and Plan (1) Essential hypertension: Status: Acute (2) Atherosclerotic cardiovascular disease: Status: Acute (3) Abnormal EKG: Status: Acute Plan [age] year gentleman who has known history of coronary disease with previous RCA PCI who was in the clinic yesterday where EKGs showed lateral ST elevations with reciprocal changes. He had no symptoms and was sent to the emergency department for further assessment. In the ER his EKGs was normal with no elevations and reciprocal changes. His lateral nonspecific T-wave changes also improved. His biomarkers were negative. He has been clinically asymptomatic. We exercised him on treadmill and he was able to exercise for 7 minutes on Maciel protocol and developed shortness of breath without any chest discomfort. He did not have any EKGs changes. His echo images at rest and post stress did not show any regional wall motion abnormality. I think he can be discharged home. He will follow up with Dr. Ramos. Thank you for allowing me to participate in the care of your patient. Please feel free to contact me if you have any questions. Procedures Date of Service Date of Service: 04/10/25
--- NOTE | 2025-04-10 13:21 | MHC.CM.PN ---
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
[2025-04-10 13:24] LABS: Glucose, Whole Blood 83 mg/dL (60-115)
--- NOTE | 2025-04-10 14:04 | HO.PM.IMPN ---
Subjective Subjective Date of Service: 04/10/25 Interval History: seen and examined this morning follow up for abnormal EKG no chest pain or sob Constitutional Constitutional: Denies chills and Denies fever(s) Cardiovascular Cardiovascular: Denies chest pain and Denies palpitations Endocrine Endocrine: Denies palpitations Physical Exam Vital Signs: Vital Signs: Last Vital Signs Temp 96.9 F 04/10/25 12:00 Pulse 55 04/10/25 12:00 Resp 16 04/10/25 12:00 BP 141/64 H 04/10/25 12:00 Pulse Ox 97 04/10/25 12:00 O2 Del Method Room Air 04/10/25 12:00 BMI result Body Mass Index 26.7 Const: General: cooperative, comfortable, no acute distress, alert and awake Nutritional Appearance: average body habitus Orientation/consciousness: patient oriented x3 Resp: Effort & Inspection: normal respiratory effort and able to speak in complete sentences Auscultation: clear to auscultation bilaterally Cardio: Rate: regular rate GI: Palpation (GI): not soft and nontender Neuro: General: patient oriented x3, No moves all extremities and No CN's II-XI intact bilaterally Objective Data Active Medications Acetaminophen (Acetaminophen 325 Mg Tablet) 650 mg PO Q6H PRN PRN Reason: Pain, Mild 1-3,fever,headache Amlodipine Besylate (Amlodipine Besylate 5 Mg Tablet) 5 mg PO BEDTIME [facility]; Protocol Last Admin: 04/09/25 20:31 Dose: 5 mg Documented By: KELLY Aspirin (Aspirin Enteric Coated 81 Mg Tablet.) 81 mg PO DAILY [facility] Last Admin: 04/10/25 08:21 Dose: 81 mg Documented By: LEONARD Atorvastatin Calcium (Atorvastatin Calcium 80 Mg Tablet) 80 mg PO BEDTIME [facility] Last Admin: 04/09/25 20:29 Dose: 80 mg Documented By: KELLY Calcium Carbonate (Calcium Carbonate 750 Mg Tab.Chew) 750 mg PO Q4H PRN PRN Reason: Heartburn Dextrose (Dextrose 50 % 25 Gm/50 Ml Syringe) 25 gm IVPUSH Q15M PRN; Protocol PRN Reason: per Hypoglycemia Standing Ord. Enalapril Maleate (Enalapril Maleate 5 Mg Tablet) 5 mg PO DAILY [facility]; Protocol Last Admin: 04/10/25 13:14 Dose: 5 mg Documented By: FARIHA Enoxaparin Sodium (Enoxaparin Sodium 40 Mg/0.4 Ml Syringe) 40 mg SUBCUT Q24H [facility] Last Admin: 04/09/25 20:31 Dose: 40 mg Documented By: KELLY Gabapentin (Gabapentin 100 Mg Capsule) 100 mg PO BEDTIME [facility] Last Admin: 04/09/25 20:29 Dose: 100 mg Documented By: KELLY Glucose (Glucose Gel 15 Gm Gel..Gram.) 15 gm PO Q15M PRN; Protocol PRN Reason: per Hypoglycemia Standing Ord. Magnesium Hydroxide (Milk Of Magnesia 30 Ml Oral.Susp) 30 ml PO DAILY PRN PRN Reason: Constipation Melatonin (Melatonin 3 Mg Tablet) 6 mg PO BEDTIME PRN PRN Reason: Insomnia Metoprolol Tartrate (Metoprolol Tartrate 25 Mg Tablet) 25 mg PO BID [facility]; Protocol Last Admin: 04/10/25 08:21 Dose: 25 mg Documented By: LEONARD Multivitamins/Vitamin C (Multivitamin Tablet) 1 tab PO DAILY [facility] Last Admin: 04/10/25 08:21 Dose: 1 tab Documented By: LEONARD Omeprazole (Omeprazole 20 Mg Capsule.Dr) 20 mg PO DAILY@0630 [facility] Last Admin: 04/10/25 06:40 Dose: 20 mg Documented By: KELLY Sodium Chloride (0.9 % Sodium Chloride Flush 3 Ml Syringe) 3 ml IVFLUSH QSHIFT [facility] Last Admin: 04/10/25 08:21 Dose: 3 ml Documented By: LEONARD Labs 04/09/25 16:30 04/09/25 16:30 Labs: Laboratory Results - last 24 hr 04/09/25 04/09/25 04/09/25 16:30 19:28 20:56 MCV 93.3 MCH 31.8 MCHC 34.1 RDW 12.2 Plt Count 271 MPV 9.3 L Immature Gran % (Auto) 0.3 Neut % (Auto) 51.3 Lymph % (Auto) 37.2 [place] % (Auto) 7.1 Eos % (Auto) 3.6 Baso % (Auto) 0.5 Lymph # (Auto) 2.7 [place] # (Auto) 0.5 Eos # (Auto) 0.3 Baso # (Auto) 0.0 Abs Immat Gran (auto) 0.02 Absolute Neuts (auto) 3.7 Absolute Nucleated RBC 0.000 Nucleated RBC % (auto) 0.0 Anion Gap 11 L Estim Creat Clear Calc 47.1 Estimated GFR 53 POC Glucose 92 Random Glucose 107 Calcium 9.3 Total Bilirubin 1.0 Direct Bilirubin 0.3 AST 33 ALT 28 Alkaline Phosphatase 80 Troponin I High Sens 3.4 3.0 B-Natriuretic Peptide 48 Total Protein 7.2 Albumin 4.2 Lipase 39 Urine Color Urine Appearance Urine pH Ur Specific [place] Urine Protein Urine Glucose (UA) Urine Ketones Urine Blood Urine Nitrite Ur Leukocyte Esterase 04/10/25 04/10/25 04/10/25 03:10 07:01 13:20 MCV MCH MCHC RDW Plt Count MPV Immature Gran % (Auto) Neut % (Auto) Lymph % (Auto) [place] % (Auto) Eos % (Auto) Baso % (Auto) Lymph # (Auto) [place] # (Auto) Eos # (Auto) Baso # (Auto) Abs Immat Gran (auto) Absolute Neuts (auto) Absolute Nucleated RBC Nucleated RBC % (auto) Anion Gap Estim Creat Clear Calc Estimated GFR POC Glucose 95 83 Random Glucose Calcium Total Bilirubin Direct Bilirubin AST ALT Alkaline Phosphatase Troponin I High Sens B-Natriuretic Peptide Total Protein Albumin Lipase Urine Color Yellow Urine Appearance Clear Urine pH 7.5 Ur Specific [place] 1.010 Urine Protein Negative Urine Glucose (UA) Negative Urine Ketones Negative Urine Blood Negative Urine Nitrite Negative Ur Leukocyte Esterase Negative Assessment and Plan (1) Abnormal EKG: Status: Acute (2) Atherosclerotic cardiovascular disease: Status: Acute Plan This is a 74-year-old male with history of coronary artery disease status post RCA stent in 2013, prediabetes, hypertension who was sent from the cardiology clinic due to abnormal EKG Abnormal EKG History of CAD with RCA stent in [address]-elevation, repeat EKG with no ST elevation. Cardiac enzymes negative. No chest pain seen by cardiology, plan for stress test - further management based on outcome Continue aspirin, statin, beta-zurdo Hypertension Continue baseline medications Continue Norvasc, enalapril, metoprolol Prediabetes Patient denies diabetes Follow-up point of care blood sugar Hold metformin DVT prophylaxis-Lovenox Quality Stroke Does the patient have a stroke diagnosis?: No VTE Prior VTE?: No VTE Risk Level:: Medical - moderate - high VTE Device Contraindication: N/A - Device Ordered VTE Drug Contraindication: N/A - Med Ordered
--- NOTE | 2025-04-10 14:32 | MHC.CM.PN ---
CM MET WITH PT WHO DECLINED [employer] AND WAS ABLE TO ANSWER ALL QUESTIONS HE REPORTS BEING FRUSTRATED HE WANTS TO DC AND EVERYONE KEEPS TELLING HIM TO WAIT. 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
--- NOTE | 2025-04-10 15:30 | P.DS_ITS ---
DS: Providers Provider Date of Service: 04/10/25 Date of admission: 04/09/25 17:58 Date of discharge: 04/10/25 Primary care physician: Josep Prieto MD Consults: 04/09/25 18:03 Consult to Cardiology Routine Consulting Provider: [facility] Reason for consultation: abnormal ekg Has provider been notified: No [facility]ing clinician: Haven Alfaro DS: Diagnosis Discharge Diagnosis (1) Abnormal EKG: Status: Acute (2) Atherosclerotic cardiovascular disease: Status: Acute DS: Summary Hospital Course Hospital Course: From H&P on the day of admission This is a 74-year-old [place]ib[place]ian-speaking male w ho was sent to the emergency department from the cardiology clinic. Patient was being seen for routine follow-up exam. EKG showed ST-elevation in lead 1/aVL which seemed more prominent than EKG from last year. For this reason he was sent to the emergency department for cardiac enzymes. He did not have any chest pain shortness of breath or any anginal symptoms. In the emergency department for set of cardiac enzymes was negative. The case was discussed with Cardiology who recommended admitting the patient overnight for observation. Abnormal EKG History of CAD with RCA stent in 2013. Concern for ST-elevation, repeat EKG with no ST elevation. Cardiac enzymes negative. No chest pain. He was seen by cardiology, and underwent stress echo which showed no evidence of ischemia. He was continued on aspirin, statin, beta-zurdo and can follow up with cardiology as outpatient. Time Attestation Discharge Coordination Time (in mins): 32 Quality: Safe Use of Opioids Does Pt have an Active Cancer Diagnosis on the Problem List?: No Quality: Stroke Does the patient have a stroke diagnosis?: No Physical Exam Vital Signs: Vital Signs: Last Vital Signs Temp 96.9 F 04/10/25 12:00 Pulse 55 04/10/25 12:00 Resp 16 04/10/25 12:00 BP 141/64 H 04/10/25 12:00 Pulse Ox 97 04/10/25 12:00 O2 Del Method Room Air 04/10/25 12:00 BMI result Body Mass Index 26.7 Const: General: cooperative, comfortable, no acute distress, alert and awake Nutritional Appearance: average body habitus Orientation/consciousness: patient oriented x3 Resp: Effort & Inspection: normal respiratory effort and able to speak in complete sentences Auscultation: clear to auscultation bilaterally Cardio: Rate: regular rate GI: Palpation (GI): not soft and nontender Neuro: General: patient oriented x3, No moves all extremities and No CN's II- XI intact bilaterally DS: Data Data Completed and Pending Labs on day of discharge: Laboratory Results - last 24 hr 04/09/25 04/09/25 04/09/25 16:30 19:28 20:56 WBC 7.3 RBC 3.58 L Hgb 11.4 L Hct 33.4 L MCV 93.3 MCH 31.8 MCHC 34.1 RDW 12.2 Plt Count 271 MPV 9.3 L Immature Gran % (Auto) 0.3 Neut % (Auto) 51.3 Lymph % (Auto) 37.2 [place] % (Auto) 7.1 Eos % (Auto) 3.6 Baso % (Auto) 0.5 Lymph # (Auto) 2.7 [place] # (Auto) 0.5 Eos # (Auto) 0.3 Baso # (Auto) 0.0 Abs Immat Gran (auto) 0.02 Absolute Neuts (auto) 3.7 Absolute Nucleated RBC 0.000 Nucleated RBC % (auto) 0.0 Sodium 141 Potassium 4.4 Chloride 106 Carbon Dioxide 28 Anion Gap 11 L BUN 23 H Creatinine 1.32 Estim Creat Clear Calc 47.1 Estimated GFR 53 POC Glucose 92 Random Glucose 107 Calcium 9.3 Total Bilirubin 1.0 Direct Bilirubin 0.3 AST 33 ALT 28 Alkaline Phosphatase 80 Troponin I High Sens 3.4 3.0 B-Natriuretic Peptide 48 Total Protein 7.2 Albumin 4.2 Lipase 39 Urine Color Urine Appearance Urine pH Ur Specific [place] Urine Protein Urine Glucose (UA) Urine Ketones Urine Blood Urine Nitrite Ur Leukocyte Esterase 04/10/25 04/10/25 04/10/25 03:10 07:01 13:20 WBC RBC Hgb Hct MCV MCH MCHC RDW Plt Count MPV Immature Gran % (Auto) Neut % (Auto) Lymph % (Auto) [place] % (Auto) Eos % (Auto) Baso % (Auto) Lymph # (Auto) [place] # (Auto) Eos # (Auto) Baso # (Auto) Abs Immat Gran (auto) Absolute Neuts (auto) Absolute Nucleated RBC Nucleated RBC % (auto) Sodium Potassium Chloride Carbon Dioxide Anion Gap BUN Creatinine Estim Creat Clear Calc Estimated GFR POC Glucose 95 83 Random Glucose Calcium Total Bilirubin Direct Bilirubin AST ALT Alkaline Phosphatase Troponin I High Sens B-Natriuretic Peptide Total Protein Albumin Lipase Urine Color Yellow Urine Appearance Clear Urine pH 7.5 Ur Specific [place] 1.010 Urine Protein Negative Urine Glucose (UA) Negative Urine Ketones Negative Urine Blood Negative Urine Nitrite Negative Ur Leukocyte Esterase Negative Discharge Plan Discharge Anticipated Discharge Date/Time: 04/10/25 15:44 Patient Disposition: Home, Self-Care Discharge Diagnosis: abnormal EKG Referrals: Josep Prieto MD [Primary Care Provider, Medical] - 1 Week Discharge Medications: Continued metoprolol tartrate 25 mg tablet 25 mg PO BID Qty: 180 3RF enalapril maleate 5 mg tablet 5 mg PO DAILY Cerovite Senior 0.4 mg-300 mcg- 250 mcg tablet 1 tab PO DAILY diclofenac sodium 1 % gel 4 g topical BID aspirin 81 mg tablet,delayed release (DR/EC) 81 mg PO DAILY atorvastatin 80 mg tablet 80 mg PO DAILY omeprazole 20 mg capsule,delayed release(DR/EC) 20 mg PO DAILY@0630 gabapentin 100 mg capsule 100 mg PO BEDTIME amlodipine 5 mg tablet 5 mg PO BEDTIME (DME) lancets [TRUEplus Lancets] 33 gauge misc See Rx Instructions Not Applicable BID Qty: 100 Rx Instructions: As directed metformin 500 mg tablet extended release 24 hr 500 mg PO DAILY@1700 (DME) FreeStyle Lite Strips Strip See Rx Instructions Not Applicable BID Qty: 10 Rx Instructions: As directed sildenafil [Viagra] 100 mg tablet 100 mg PO DAILY PRN (Reason: Erectile Dysfunction) Discharge Orders: Discharge Order (Routine); Ordered 04/10/25 Ordered By: Haven Alfaro Activity on Discharge: As tolerated Stand Alone Forms: Patient Portal Discharge page Print Language: Djib[place]ian Care Plan Goals: See below Health Concerns: Abnormal EKG Plan of Treatment: Normal stress test. Outpatient follow-up with cardiology recommended No changes in baseline medications Assessment: See discharge summary
[2025-04-10 16:25] LABS: Glucose, Whole Blood 138 mg/dL (60-115)
== END 2025-04-10 17:05 | disposition home or self-care (01) ==
LOC: HO.ED 17:44 → HO.EDOVER 18:07 → HO.IMC 04-10 07:17
PROVIDERS: Admitting Provider Physician Assistant Medical; Emergency Provider Emergency Medicine; PCP Internal Medicine; Visit Provider Physician Assistant Medical
DX: R94.31 Abnormal electrocardiogram [ECG] [EKG] (principal); I25.10 Atherosclerotic heart disease of native coronary artery without angina pectoris; R05.9 Cough, unspecified; I10 Essential (primary) hypertension; R73.03 Prediabetes; Z79.899 Other long term (current) drug therapy; Z79.84 Long term (current) use of oral hypoglycemic drugs
CPT/HCPCS: 36415; 71045; 80048; 80076; 81003; 82947; 83690; 83880; 84484; 85025; 93005; 93350; 96372; 99222; 99285; J1650; Q9957

== ENCOUNTER → 2025-04-09 16:28 | Outpatient (BNV) | payer MEDICARE, MEDICAID, SELFPAY | PROVIDERS: Admitting Provider Physician Assistant Medical; Emergency Provider Emergency Medicine; PCP Internal Medicine; Visit Provider Nuclear Medicine | DX: I25.10 Atherosclerotic heart disease of native coronary artery without angina pectoris (principal) | CPT/HCPCS: 71045 ==

== ENCOUNTER 2025-04-09 17:58 | Outpatient (BNV) | payer MEDICARE, MEDICAID, SELFPAY | END 2025-04-10 09:32 | PROVIDERS: Admitting Provider Physician Assistant Medical; Emergency Provider Emergency Medicine; PCP Internal Medicine | DX: R94.31 Abnormal electrocardiogram [ECG] [EKG] (principal); R06.02 Shortness of breath | CPT/HCPCS: 93016; 93018; 93350; 93352 ==

== ENCOUNTER → 2025-04-09 17:58 | Outpatient (BNV) | payer MEDICARE, MEDICAID, SELFPAY | PROVIDERS: Admitting Provider Physician Assistant Medical; Emergency Provider Emergency Medicine; PCP Internal Medicine; Visit Provider Physician Assistant Medical | DX: R94.31 Abnormal electrocardiogram [ECG] [EKG] (principal); I25.10 Atherosclerotic heart disease of native coronary artery without angina pectoris | CPT/HCPCS: 99223; 99232; 99239 ==

== ENCOUNTER → 2025-04-09 17:58 | Outpatient (BNV) | payer MEDICARE, MEDICAID, SELFPAY | PROVIDERS: Admitting Provider Physician Assistant Medical; Emergency Provider Emergency Medicine; PCP Internal Medicine; Visit Provider Internal Medicine Cardiovascular Disease | DX: I11.9 Hypertensive heart disease without heart failure (principal); I25.10 Atherosclerotic heart disease of native coronary artery without angina pectoris; R94.31 Abnormal electrocardiogram [ECG] [EKG] | CPT/HCPCS: 99223 ==

== ENCOUNTER 2025-05-18 15:54 | Outpatient (AMB) | payer MEDICARE, MEDICAID, SELFPAY ==
--- NOTE | 2025-05-18 15:58 | A.OFFVIS_ITS ---
Intake Visit Reasons: follow up (not seen since February) Intake Note: Patient presents today for a follow-up Urology Meds- Sildenafil Allergies to Antibiotic:None Blood Thinner:Aspirin PVR:9ml Arm Rest Builder Required: Yes Accompanied by: Self / Same As Patient Allergies No Known Allergies Allergy (Verified 05/18/25 16:07) Medication List - Last Reconciled 05/18/25 by Tiarra Hardy MD amlodipine 5 mg PO BEDTIME aspirin 81 mg PO DAILY atorvastatin 80 mg PO DAILY blood sugar diagnostic (FreeStyle Lite Strips) As directed diclofenac sodium 1% 4 grams topical BID enalapril maleate 5 mg PO DAILY gabapentin 100 mg PO BEDTIME lancets (TRUEplus Lancets) As directed metformin ER 500 mg PO DAILY@1700 metoprolol tartrate 25 mg PO BID nnuvyqri-hlm-QL-lycopen-lutein 0.4 mg-300 mcg- 250 mcg (Cerovite Senior) 1 tab PO DAILY omeprazole 20 mg PO DAILY@0630 sildenafil (Viagra) 100 mg PO DAILY PRN HPI Comments Details: 05/18/25--Alan is a 74-year-old male who has been followed for lower urinary tract symptoms of urgency and weak stream. He was prescribed oxybutynin and Flomax. He was last seen in the office January 2023 in review of his chart PSA testing 03/31/25--1.90 ng/mL 01/29/2023-- The patient reports that the oxybutynin 5 mg trial has reduced nocturia episodes to two per night. He is taking tamsulosin 0.4 mg without any reported side effects. States having nocturia episodes 2 times. Denies urinary leakage. Denies incontinence. Evaluation today: Blood: negative, leukocytes: negative. Bladder scan PVR: 0 mL. PSA results reviewed?12/21/22--1.42. Renal US results reviewed-- 01/05/23-- Bladder with normal limits. Right kidney: Stable 0.6 cm hyperechoic lesion in the lower pole of the right kidney which could represent a small angiomyolipoma. Enlarged prostate. It was discussed with the patient that angiomyolipoma is a fatty lesion in the kidney that is considered benign. It has muscle cells and blood cells and does not change into malignant lesion. If the lesion grows to over 5 cm then we are concerned that it may cause bleeding. Plan: OAB. oxybutynin 5 mg QD. BPH. obstructive voiding symptoms. Continue with tamsulosin 0.4 mg QD. renal angiomyolipoma. one year we will repeat the renal US. Follow-up after 6 months to monitor UA. [facility] Medical History High cholesterol Diabetes Essential hypertension Atherosclerotic cardiovascular disease Surgical History Stented coronary artery History of cardiac catheterization (~08/19/14) Family History Father No problems noted. Mother No problems noted. Social History Alcohol intake: never Patient Tobacco Use Status: Never used Tobacco service: No Results AMB Urinalysis, Automated UA Leukoctes 0 Dusty/uL Last Edit by Alyssa Rios on 05/18/25 16:38 UA Nitrite Negative Last Edit by Alyssa Rios on 05/18/25 16:38 UA Urobilinogen 3.5 mg/dL Last Edit by Alyssa Rios on 05/18/25 16:38 UA Protein 0.3 mg/dL Last Edit by Alyssa Rios on 05/18/25 16:38 UA pH 5.5 Last Edit by Alyssa Rios on 05/18/25 16:38 UA Blood 0 Todd/uL Last Edit by Alyssa Rios on 05/18/25 16:38 UA Specific Robson 1.020 Last Edit by Alyssa Rios on 05/18/25 16:38 UA Ketone Negative Last Edit by Alyssa Rios on 05/18/25 16:38 UA Bilirubin 17 mg/dL Last Edit by Alyssa Rios on 05/18/25 16:38 UA Glucose 0 mg/dL Last Edit by Alyssa Rios on 05/18/25 16:38 Results Reviewed Results Reviewed: Laboratory Last Values Urine pH (Auto) 5.5 05/18/25 16:21 Specific Robson (Auto) 1.020 05/18/25 16:21 Urine Protein (Auto) 0.3 mg/dL 05/18/25 16:21 Glucose (UA)(Auto) 0 mg/dL 05/18/25 16:21 Urine Ketones (Auto) Negative 05/18/25 16:21 Urine Blood (Auto) 0 Todd/uL 05/18/25 16:21 Urine Nitrite (Auto) Negative 05/18/25 16:21 Urine Bilirubin (Auto) 17 mg/dL 05/18/25 16:21 Urine Urobilinogen (Auto) 3.5 mg/dL 05/18/25 16:21 Leukocyte Esterase (Auto) 0 Dusty/uL 05/18/25 16:21 Assessment & Plan Assessment & Plan Orders: Orders AMB Urinalysis Automated Today Z13.9 - Encounter for screening, unspecified AMB Post Void Residual by ultrasound Today N40.1 - Benign prostatic hyperplasia with lower urinary tract symptoms Medications: Refilled oxybutynin chloride ER take at 9 pm daily 5 mg PO BEDTIME 90 tabs 3RF tamsulosin take daily at 9 pm at night 0.4 mg PO DAILY 90 caps 3RF Coding
--- OUTSIDE RECORDS SUMMARY | 2025-05-18 16:04 | XMS_ITS | Encounter Summary ---
Author Organization [employer] Address [address] [place] [address] [address] [place] [address] Care Team Providers Care Plastic Extruding Machine Operator Name Role Phone Josep Pascual MD Primary Care Provide r Encounter Details Date Type Department Care Team (Special Care Hospital Contact Info) Description 11/27/2022 Orders Only [facility] PEDS [address] [place], [place] [id number] Faviola Edmonds LPN Social History Tobacco Use [...] Care Team (Late st Contact Info) Description 06/29/2025 3:00 PM EDT Medication Management [facility] MEDICINE [address], [place] [phone] Jolie Jeong, PharmD [address] [place] [address] documented as of this encounter Visit Diagnoses Not on filedocumented in this encounter Care Teams Plastic Extruding Machine Operator Relationship Specialty Start Date End Date Josep Pascual MD [address] [place] [address] PCP - General Internal Medicine 07/22/14 documented as of this encounter
--- OUTSIDE RECORDS SUMMARY | 2025-05-18 16:04 | XMS_ITS | Clinical Summary ---
Author Organization [facility], Address [address] [place] [address] [place] [address] Phone Care Team Providers Care Dock Worker Name Role Phone Josep Sellesr MD Primary Care Provider Unav ailable Allergies No known active allergies Medications aspirin (ST DAVIAN) 81 MG EC tablet Take 81 mg by mouth 1 (one) time each day Active metoprolol tartrate (LOPRESSOR) 25 MG tablet Take 25 mg by mouth 2 (two) times a day Active raNITIdine (ZANTAC) 150 MG tablet Take 150 mg by mouth 2 (two) times a day Active amLODIPine (NORVASC) 5 MG tablet Take 5 mg by mouth 1 (one) time each day Active atorvastatin (LIPITOR) 80 MG tablet Take 80 mg by mouth 1 (one) time each day Active omeprazole (PriLOSEC) [address] capsule Take 20 mg by mouth 1 (one) time each day with food Active gabapentin (NEURONTIN) 100 MG capsule Take 100 mg by mouth every night Active enalapril (VASOTEC) 2.5 MG tablet Take 2.5 mg by mouth 1 (one) time each day Active Multiple Vitamins-Minera ls (MULTIVITAMIN ADULT PO) Take 1 capsule by mouth 1 (one) time each day Active Alcohol Swabs (SM Alcohol Prep) 70 % pads USE DIRECTED TWICE DAILY 11/17/2021 Active FREESTYLE LITE test strip TEST BLOOD SUGAR TWICE DAILY 11/17/2021 Active TRUEplus Lancets 33G misc TEST BLOOD SUGAR TWICE DAILY 10/20/2021 Active metFORMIN XR (GLUCOPHAGE-XR) 500 MG 24 hr tablet 12/21/2021 Active Multiple Vitamins-Minera ls (CertaVite/Anti oxidants) tablet Take 1 tablet by mouth 11/17/2021 Active tamsulosin (FLOMAX) 0.4 MG 24 hr capsule 12/21/2021 Activ e erythromycin (ROMYCIN) ophthalmic ointment APPLY 1/2 INCH RIBBON INTO THE AFFECTED EYE(S) TWICE DAILY DIRECTED 01/12/2022 Active Active Problems Problem Noted Date Diagnosed Date Essential (primary) hypertension 09/06/2020 Stage 3a chronic kidney disease 09/02/2020 Overview (10/25/2020): Update for Diagnosis Load Impaired fasting glycemia Hyperlipidemia Immunizations Immunization Administration Dates Next Due Influenza, MDCK, PF, Quadrivalent 08/23/2020 Social History Tobacco Use Types Packs/Day Years Used Date Smoking Tobacco: Never Alcohol Use Standard Drinks/Week Comments No 0 (1 standard drink = 0.6 oz pur e alcohol) Sex and Gender Information Value Date Recorded Sex Assigned at Not on file Legal Sex Male 11:25 AM EDT Gender Identity Not on file Sexual Orientation Not on file Plan of Treatment Health Maintenance Due Date Last Done Comments Pneumococcal Vaccine: 50+ Ye ars (1 of 2 - PCV) 1968 Colorectal Cancer Screening: Annual FOBT 1998 Colorectal Cancer Screening: Colonoscopy 1998 Colorectal Cancer Screening: Sigmoidoscopy 1998 Influenza Vaccine (#1) 2025 08/23/2020 Hepatitis B Vaccine Aged Out No longe r eligible based on patient's age to complete this topic Insurance Medicare Medicaid [place] Care Teams Dock Worker Relationship Specialty Start Date End Date Josep Sellers MD PCP - General Internal Medicine 07/30/20
--- OUTSIDE RECORDS SUMMARY | 2025-05-18 16:04 | XMS_ITS | Clinical Summary ---
Author Organization [address] [facility] Address [address] [place] [address] Phone Care Team Providers Care Topper Packer Name Role Phone Josep rPieto MD Primary Care Provi luz maria Allergies No known active allergies Medications naproxen (EC NAPROSYN) 500 mg EC tablet Take 1 tablet (500 mg total) by mouth 2 (two) times a day. Active meloxicam (MOBIC) 15 mg tablet Take 1 tablet (15 mg total) by mouth 1 (one) time each day. For 60 days Active diclofenac (Voltaren Arthritis Pain) 1 % topical gel Apply 4 g topically 2 (two) times a day. 240 g 1 05/04/20 25 Hospital, Clinic, or Other Facility Administered Medication Ordered Dose Route Frequency Start Date End Date Status lidocaine (PF) (XYLOCAINE-MPF) 1 % injection 0.5 mLIndications:Hallux rigidus of right foot .5 mL inj Once PRN Procedure 05/07/2025 05/07/2025 Ended triamcinolone acetonide (KENALOG-40) 40 mg/mL injection 20 mgIndications:Hallux rigidus of right foot 20 mg IAtc Once PRN Procedure 05/07/2025 05/07/2025 Ended Active Problems Problem Noted Date Diagnosed Date Plantar fasciitis, bilateral 05/02/2024 Encounters Date Type Department Care Team Description 05/07/2025 3:30 PM EDT Office Visit Orthopedic [facility] [address] [phone] Rohit Elliott, DPM Plantar fascial fibromatosis (Primary Dx); Hallux rigidus of right foot; Equinus contracture of ankle 03/05/2025 4:00 PM EDT Office Visit Orthopedic Surgery [facility] [address] [phone] Rohit Elliott DPM Hallux rigidus of right foot (Primary Dx); Plantar fascial fibromatosis from Last 3 Months Social History Tobacco Use Types Packs/Day Years Used Date Smoking Tobacco: Never Assessed Sex and Gender Information Value Date Recorded Sex Assigned at Not on file Legal Sex Male 11:06 AM EDT Gender Identity Not on file Sexual Orientation Not on file Last Filed Vital Signs Vital Sign Reading Time Taken Comments Blood Pressure - - Pulse - - Temperature - - Respiratory Rate - - Oxygen Saturation - - Inhaled Oxygen Concentration - - Weight 75.3 kg (166 lb) 03/05/2025 4:02 PM EDT Height 167.6 cm (5' 5.98 ) 03/05/2025 4:02 PM ED T Body Mass Index 26.81 03/05/2025 4:02 PM EDT Plan of Treatment Upcoming Encounters Date Type Department Care Team (Late st Contact Info) Description 07/09/2025 3:15 PM EDT Office Visit Orthopedic Surgery [facility] [address] [phone] Rohit Elliott DPM [address] [phone] Health Maintenance Due Date Last Done Comments Colorectal Cancer Screening: Colonoscopy 05/15/2024 Falls Risk Assessment 05/15/2024 Hepatitis C Screening 05/15/2024 Medicare Annual Wellness Visit 05/15/2024 Social Influencers of Health Screening 05/15/2024 COVID-19 Vaccine ( season) 2024 11/07/2022, 09/22/2021, 01/18/2021, Additional history exists RSV Immunization Adult Patients (1 - 1-dose 75+ series) 2024 Depression Screening 10/22/2024 Influenza Vaccine (#1) 2025 , 07/17/2024, 10/03/2023, Additional history exists Hypertension/CHF/CAD Annual BMP Blood Test 04/09/2026 04/09/2025, 03/20/2025, 08/06/2024 Cholesterol Screening (Lipid Panel) 08/06/2029 08/06/2024 DTaP,Tdap,and Td Vaccines (4 - Td or Tdap) 05/02/2033 05/02/2023, 10/08/2012, 07/11/2006 Hepatitis B Vaccines Completed 07/03/2000, 02/02/2000, 01/02/2000 Zoster Vaccines Completed 05/24/2022, 02/19, 01/05/2015 Pneumococcal Vaccine: 50+ Years Completed 10/03/2023, 09/05/2016, 09/28/2014, Additional history exists HIB Vaccines Aged Out No longer eligi ble based on patient's age to complete this topic HPV Vaccines Aged Out No longer eligi ble based on patient's age to complete this topic Hepatitis A Vaccines Aged Out No long er eligible based on patient's age to complete this topic IPV Vaccines Aged Out No longer eligi ble based on patient's age to complete this topic MMR Vaccines Aged Out No longer eligi ble based on patient's age to complete this topic Meningococcal ACWY Vaccine Aged Out N o longer eligible based on patient's age to complete this topic Meningococcal B Vaccine Aged Out No l onger eligible based on patient's age to complete this topic RSV Immunization Patients Under 20 months Aged Out No longer eligible based on patient's age to complete this topic Varicella Vaccines Aged Out No longer eligible based on patient's age to complete this topic Procedures Procedure Name Priority Date/Time Associated Diagnosis Comments INJECTION TENDON OR LIGAMENT Routine 05/07/2025 3:30 PM EDT Hallux rigidus of right foot from Last 3 Months Results * Injection tendon or ligament (05/07/2025 3:30 PM EDT) Rohit Guillermo DPM - 05/07/2025 3:30 PM EDT Rohit Elliott DPM 05/07/2025 4:45 PM Injection tendon or ligament Indications: pain Details: 25 G needle Medications: 0.5 mL lidocaine (PF) 1 %; 20 mg triamcinolone acetonide 40 mg/mL Informed Consent: Site: Foot ligament tendon us Christopher M Elliott DPM IN CLINIC/BEDSIDE ORDERAB LES Final Result from Last 3 Months Insurance MEDICARE MEDICAID - [place] Care Teams Topper Packer Relationship Specialty Start Date End Date Josep Prieto MD [address] [place] [address] [place] [address] PCP - General 08/10/14
== END 2025-05-18 16:44 | disposition home or self-care (01) ==
LOC: HO.HUSH 15:55
PROVIDERS: PCP Internal Medicine; Visit Provider Urology
DX: Z13.9 Encounter for screening, unspecified (principal)

== ENCOUNTER → 2025-05-18 15:54 | Outpatient (BNVA) | payer MEDICARE, MEDICAID, SELFPAY | PROVIDERS: PCP Internal Medicine; Visit Provider Urology | DX: N40.1 Benign prostatic hyperplasia with lower urinary tract symptoms (principal); N13.8 Other obstructive and reflux uropathy; R35.1 Nocturia; R39.12 Poor urinary stream; R39.15 Urgency of urination; D17.71 Benign lipomatous neoplasm of kidney | CPT/HCPCS: 81003; 99212 ==

== ENCOUNTER 2025-08-01 13:02 | Emergency (ER) | payer OTHER, SELFPAY ==
--- NOTE | ~2025-08-01 | XR_ITS ---
CLINICAL HISTORY: cough, fever 2 view chest x-ray Comparison: CR - XR CHEST 1V - 04/09/25 17:31 EDT CR/SR - XR CHEST 2 VIEWS - 08/21/24 10:31 EDT Findings: No consolidation or effusion. Heart size is normal. No acute fracture. IMPRESSION: 1. No acute findings. This document has been electronically signed by: Salima Kumar MD on 08/01/2025 15:35:56
[2025-08-01 13:17] VITALS: BP 182/81; PULSE 102; RESP 18; TEMP 38.8; O2SAT 94; BMI 23.6
--- NOTE | 2025-08-01 13:17 | ED.GENADULT ---
HPI - General Adult General Chief complaint: Upper Respiratory Symptoms Stated complaint: sore throat bady aches headache Time Seen by Provider: 08/01/25 13:42 Source: patient and language interpreter Mode of arrival: ambulatory Limitations: no limitations History of Present Illness ED Provider: DR. Murphy HPI narrative: 74-year-old male came in for evaluation of generalized body ache, headache, sore throat, dry cough, subjective fever. No sick contacts, no recent travel, no CP, no SOB. Related Data Home Medications ?Medication ?Instructions ?Recorded ?Confirmed atorvastatin 80 mg tablet 80 mg PO DAILY 09/09/20 05/18/25 omeprazole 20 mg capsule,delayed 20 mg PO DAILY@0630 09/09/20 05/18/25 release amlodipine 5 mg tablet 5 mg PO BEDTIME 10/20/21 05/18/25 blood sugar diagnostic (FreeStyle #10 ea 12/30/21 05/18/25 Lite Strips) lancets 33 gauge (TRUEplus Lancets) #100 ea 12/30/21 05/18/25 metformin 500 mg tablet,extended 500 mg PO DAILY@1700 12/30/21 05/18/25 release 24 hr sildenafil 100 mg tablet (Viagra) 100 mg PO DAILY PRN Erectile 01/29/23 05/18/25 Dysfunction gabapentin 100 mg capsule 100 mg PO BEDTIME 04/11/23 05/18/25 aspirin 81 mg tablet,delayed 81 mg PO DAILY 04/09/25 05/18/25 release diclofenac sodium 1 % topical gel 4 g topical BID 04/09/25 05/18/25 enalapril maleate 5 mg tablet 5 mg PO DAILY 04/09/25 05/18/25 lemiobmn-pvo-auapp acid 0.4 1 tab PO DAILY 04/09/25 05/18/25 mg-lycopene 300 mcg-lutein 250 mcg tablet (Cerovite Senior) Previous Rx's ?Medication ?Instructions ?Recorded metoprolol tartrate 25 mg tablet 25 mg PO BID #180 tabs 03/30/25 oxybutynin chloride 5 mg 5 mg PO BEDTIME #90 tabs 07/16/25 tablet,extended release 24 hr tamsulosin 0.4 mg capsule 0.4 mg PO DAILY #90 caps 07/16/25 Allergies Allergy/AdvReac Type Severity Reaction Status Date / Time No Known Allergies Allergy Verified 08/01/25 13:19 Review of Systems Review of Systems: All other systems are reviewed and are negative Constitutional: Reports as per HPI and Reports no additional constitutional complaints Eyes: Reports as per HPI and Reports no additional eye complaints Reports system reviewed and no additional complaints, except as documented Cardiovascular: Reports as per HPI and Reports no additional cardiovascular complaints Respiratory: Reports as per HPI and Reports no additional respiratory complaints Gastrointestinal: Reports as per HPI and Reports no additional gastrointestinal complaints Genitourinary: Reports no additional female genitourinary complaints Musculoskeletal: Reports no additional musculoskeletal complaints Skin/Breast: Reports system reviewed and no additional complaints, except as docu Psychiatric: Reports no additional psychiatric complaints Endocrine: Reports no additional endocrine complaints Hematologic/Lymphatic: Reports no additional hematologic/lymphatic complaints Allergic/Immunologic: Reports no additional allergic/immunologic complaints Reports system reviewed and no additional complaints, except as documented and Reports Abnormal speech present [facility] Past Medical History Medical History High cholesterol Diabetes Essential hypertension Atherosclerotic cardiovascular disease Surgical History Stented coronary artery History of cardiac catheterization (~08/19/14) Family History Family History Father No problems noted. Mother No problems noted. Social History Social History Alcohol intake: former Patient Tobacco Use Status: Never used Tobacco Smoked in Last 30 Days: No Use of substances other than those prescribed or required for medical reasons: No Advance Directives: No Advance Directives Information Provided: Yes Do you have a plan to hurt others: No Plan service: No Physical Exam ED Vital Signs: Vital Signs - 24 hr 08/01/25 13:17 08/01/25 14:59 08/01/25 15:02 Temperature 101.8 F H 99.9 F 99.9 F Pulse Rate 102 H 81 Respiratory Rate 18 18 Blood Pressure 182/81 H 167/75 H Pulse Oximetry 94 94 Oxygen Delivery Method Room Air Room Air 08/01/25 16:48 Temperature 99 F Pulse Rate 82 Respiratory Rate 18 Blood Pressure 167/77 H Pulse Oximetry 96 Oxygen Delivery Method Room Air BMI result Body Mass Index 23.6 Vital signs have been reviewed and appear to be correct. Blood pressure elevated. Heart rate normal. Respiratory rate normal. Temperature normal. Oxygen saturation normal. Appearance: Alert. Oriented X3. No acute distress. Head: Normal external exam. Normocephalic. Atraumatic. No Grimm signs noted. No raccoon eyes noted Eyes: PERRLA. EOMI. Conjunctiva and sclera normal. Eyelids normal. ENT: TM's Normal. Pharynx normal. Uvula midline. Moist mucous membranes. No trismus noted. No drooling noted. No muffled voice noted. Neck: Normal inspection. Neck supple. FROM. No adenopathy. Thyroid Normal. No meningeal signs. No neck mass noted. CVS: Normal heart rate and rhythm. Heart sound normal. No murmurs noted. Pulses normal throughout. Respiratory: No respiratory distress. Painless inspiration. Breath sounds normal. No wheezes/rales/rhonchi noted. Chest nontender. No accessory muscle usage noted or decreased air movement noted. Abdomen: Soft and nontender. Bowel sounds normal in all 4 quadrants. No distention noted. No organomegaly noted. No visible injury noted. Back: No CVA tenderness. Full range of motion noted. Skin: Skin warm and dry. Normal skin color. Normal skin turgor. No rashes/lesions/lacerations noted. Extremities: No lower extremity edema. Extremities exhibit normal range of motion. Extremities nontender. Neuro: Oriented X 3. Cranial nerve exam: II-XII are grossly intact No motor deficit. No sensory deficit. Reflexes normal. Course Course Course Narrative: This is a Rapid Medical Examination (RME) performed by Lala Sullivan PA-C in triage. Full HPI, ROS, assessment and treatment plan per primary provider in the Main ED. Hx: 74 yo M here for cough, body aches, sore throat, headache x2 days. no sick contacts. PE/vitals: Febrile, tachycardic, posterior oropharynx erythematous. Plan: labs, viral swabs, cxr. tylenol given in triage. Reevaluation(s) Reevaluation #1: 74-year-old male came in with symptoms suggestive for viral syndrome, there falls there is no sepsis. Hypomagnesemia magnesium was repleted in the ED. Patient was instructed to drink plenty of fluids and be discharged home. Time: 16:52 Medications Administered Discontinued Medications Generic Name Dose Route Start Last Admin Trade Name Peter PRN Reason Stop Dose Admin Acetaminophen 975 mg 08/01/25 13:17 08/01/25 13:21 Acetaminophen 325 Mg Tablet PO 08/01/25 13:18 975 mg ONCE ONE Administration Lactated Ringer's 1,000 mls @ 999 mls/hr 08/01/25 13:45 08/01/25 15:54 Lr IV 08/01/25 14:45 Infused .Q1H1M ERIKA Infusion Piperacillin Sod/Tazobactam 50 mls @ 100 mls/hr 08/01/25 13:45 08/01/25 14:49 Sod 3.375 gm/ Sodium Chloride IV 08/01/25 14:14 Infused ONCE ONE Infusion Magnesium Sulfate 2 gm in 50 mls @ 150 mls/hr 08/01/25 14:39 08/01/25 15:54 Magnesium Sulfate/H2o IV 08/01/25 14:58 Infused ONCE ONE Infusion Medical Decision Making Differential Diagnosis Differential Diagnoses: The differential diagnosis associated with the presentation includes (Pneumonia, pneumothorax, pleural effusion, COVID 19 infection, influenza, RSV, electrolyte derangement, severe anemia, dehydration.) Admission/Observation Consideration of admission/observation: Escalation of care including admission/observation considered Lab Data MDM Lab Attestation statement: I reviewed the patient's lab results. 08/01/25 13:42 08/01/25 13:42 Labs: Lab Results 08/01/25 08/01/25 08/01/25 Range/Units 13:42 14:00 14:01 WBC 7.4 (4.8-10.8) X10*3/uL RBC 3.85 L (4.60-5.80) X10*6/uL Hgb 11.8 L (14.0-18.0) g/dl Hct 36.2 L (42.0-52.0) % MCV 94.0 (80.0-98.0) fL MCH 30.6 (27.0-33.0) pg MCHC 32.6 (31.0-36.0) g/dl RDW 12.1 (11.0-16.0) % Plt Count 242 (160-400) X10*3/uL MPV 9.6 (9.4-12.4) fL Immature Gran % (Auto) 0.3 (0.0-0.4) % Neut % (Auto) 74.7 H (45-73) % Lymph % (Auto) 14.4 L (20-40) % [place] % (Auto) 8.9 (2-11) % Eos % (Auto) 1.2 (0-4) % Baso % (Auto) 0.5 (0-2) % Lymph # (Auto) 1.1 L (1.2-4.9) X10*3/uL [place] # (Auto) 0.7 (0.1-1.2) X10*3/uL Eos # (Auto) 0.1 (0.0-0.4) X10*3/uL Baso # (Auto) 0.0 (0.0-0.2) X10*3/uL Abs Immat Gran (auto) 0.02 (0.00-0.03) X10*3/uL Absolute Neuts (auto) 5.5 (2.0-8.3) x10*3/uL Absolute Nucleated RBC 0.000 (0.0-0.012) X10*3/uL Nucleated RBC % (auto) 0.0 (0.0-0.2) /100WBC Sodium 137 (135-145) mmol/L Potassium 4.6 (3.3-5.1) mmol/L Chloride 103 (96-108) mmol/L Carbon Dioxide 26 (22-29) mmol/L Anion Gap 13 (12-20) BUN 20 H (9-16) mg/dL Creatinine 1.24 (0.5-1.4) mg/dL Estim Creat Clear Calc 51.4 Estimated GFR 57 Random Glucose 145 H (60-115) mg/dL Lactic Acid 2.0 (0.5-2.0) mmol/L Calcium 9.5 (8.4-10.2) mg/dL Magnesium 1.5 L (1.6-2.6) mg/dL Total Bilirubin 1.5 H (0.0-1.0) mg/dL AST 34 (5-37) U/L ALT 32 (0-40) U/L Alkaline Phosphatase 75 (39-117) U/L Total Protein 7.5 (6.5-8.0) g/dL Albumin 4.4 (3.5-5.0) g/dL COVID-19 (HITESH) Positive A (Negative) COVID-19 Clin Com See Note Monoscreen Negative (Negative) Influenza Type A (DOMINIC) Negative (Negative) Influenza Type B (DOMINIC) Negative (Negative) Influenza A & B Note See Note S. pyogenes GrpA DOMINIC Negative (Negative) Independent Interpretation I performed an independent interpretation of an: Plain X-Ray (Chest: No acute findings.) Radiology Impression Discussion of test interpretation with radiology: I have reviewed the radiologist's reading. Discharge Plan Discharge Clinical Impression: COVID-19 virus infection, Hypomagnesemia Patient Disposition: Home, Self-Care Instructions: COVID-19 (Coronavirus Disease 2019) (ED) Additional Instructions: 1. Use face mask at all times. 2. Frequent hand washing. 3. Leave social distance. 4. Self quarantine at home for the next 7 days. 5. Drink plenty of fluids. Prescriptions: No Action metoprolol tartrate 25 mg tablet 25 mg PO BID Qty: 180 3RF tamsulosin 0.4 mg capsule 0.4 mg PO DAILY Qty: 90 3RF Rx Instructions: take daily at 9 pm at night oxybutynin chloride 5 mg tablet extended release 24hr 5 mg PO BEDTIME Qty: 90 3RF Rx Instructions: take at 9 pm daily enalapril maleate 5 mg tablet 5 mg PO DAILY Cerovite Senior 0.4 mg-300 mcg- 250 mcg tablet 1 tab PO DAILY diclofenac sodium 1 % gel 4 g topical BID aspirin 81 mg tablet,delayed release (DR/EC) 81 mg PO DAILY atorvastatin 80 mg tablet 80 mg PO DAILY omeprazole 20 mg capsule,delayed release(DR/EC) 20 mg PO DAILY@0630 gabapentin 100 mg capsule 100 mg PO BEDTIME amlodipine 5 mg tablet 5 mg PO BEDTIME (DME) lancets [TRUEplus Lancets] 33 gauge misc See Rx Instructions Not Applicable BID Qty: 100 Rx Instructions: As directed metformin 500 mg tablet extended release 24 hr 500 mg PO DAILY@1700 (DME) FreeStyle Lite Strips Strip See Rx Instructions Not Applicable BID Qty: 10 Rx Instructions: As directed sildenafil [Viagra] 100 mg tablet 100 mg PO DAILY PRN (Reason: Erectile Dysfunction) Referrals: Josep Prieto MD [Primary Care Provider, Medical] Print Language: Indonesian
--- NOTE | 2025-08-01 13:21 | PC.NURSE ---
pt medicated in triage d/t fever. effectiveness pending.
[2025-08-01 13:49] LABS: MANUAL DIFF FLAG NO
[2025-08-01 13:50] LABS: Hematocrit 36.2 % (42.0-52.0); Hemoglobin 11.8 g/dl (14.0-18.0); Imm Gran Abs Auto 0.02 X10*3/uL (0.00-0.03); Imm Gran Pct Auto 0.3 % (0.0-0.4); Lymphocytes Absolute Auto 1.1 X10*3/uL (1.2-4.9); Mean Corpuscular HGB Conc 32.6 g/dl (31.0-36.0); Mean Corpuscular Hemoglobin 30.6 pg (27.0-33.0); Mean Corpuscular Volume 94.0 fL (80.0-98.0); NRBC Abs Auto 0.000 X10*3/uL (0.0-0.012); NRBC Pct Auto 0.0 /100WBC (0.0-0.2); Platelet Count 242 X10*3/uL (160-400); Red Blood Count 3.85 X10*6/uL (4.60-5.80); White Blood Count 7.4 X10*3/uL (4.8-10.8)
[2025-08-01 14:00] LABS: COVID-19 Test Positive (Negative); IDNOW Serial# 58CA691E
--- OUTSIDE RECORDS SUMMARY | 2025-08-01 14:02 | XMS_ITS | Encounter Summary ---
Author Organization [employer] Address [address] [place] [address] [address] [place] [address] Care Team Providers Care Drywall Metal Stud Worker Name Role Phone Josep Pascual MD Primary Care Provide r Reason for Visit * Reason Comments Med Refill Encounter Details Date Type Department Care Team (Late st Contact Info) Description 05/22/2024 Refill [facility] [address], [place] [phone] Josep Pascual MD [address] [place] [address] Pain Social History Tobacco Use Types Packs/Day Years Used Date Smoking Tobacco: Never Smokeless Tobacco: Never Alcohol Use Standard Drinks/Week Comments Never 0 (1 standard drink = 0.6 oz pur e alcohol) Sex and Gender Information Value Date Recorded Sex Assigned at Male 08/21/2022 10:14 AM EDT Legal Sex Male 10:14 AM EDT Gender Identity Male 08/21/2022 10:14 AM EDT Sexual Orientation Straight 08/21/2022 10 :14 AM EDT documented as of this encounter Plan of Treatment Upcoming Encounters Date Type Department Care Team (Late st Contact Info) Description 08/17/2025 3:00 PM EDT Medication Management [facility] [address] [place] [address] Wendi Hernández, PharmD [address] [place] [address] documented as of this encounter Goals Goal Patient Goal Type Associated Problems Recent Progress Patient-Stated? Author Blood Pressure < 140/90 Blood Pressure Essential (primary) hypertension 144/75(2024 4:44 PM EDT) No Shoaib Gonzalez, PharmD documented as of this encounter Visit Diagnoses Diagnosis Pain Generalized pain documented in this encounter Care Teams Drywall Metal Stud Worker Relationship Specialty Start Date End Date Josep Pascual MD [address] [place] [address] PCP - General Internal Medicine 07/22/14 documented as of this encounter
--- OUTSIDE RECORDS SUMMARY | 2025-08-01 14:02 | XMS_ITS | Encounter Summary ---
Author Organization [employer] Address [address] [place] [address] [address] [place] [address] Care Team Providers Care Pullman Conductor Name Role Phone Josep Pascual MD Primary Care Provide r Reason for Visit * Reason Onset Date Comments Referral 01/07/2025 Encounter Details Date Type Department Care Team ([facility] st Contact Info) Description 01/07/2025 Telephone [facility] [address], [place] [phone] Josep Pascual MD [address] [place], [place] [phone] Referral Social History Tobacco Use Types Packs/Day Years Used Date Smoking Tobacco: Never Passive Smoke Exposure: Never Smokeless Tobacco: Never Alcohol Use Standard Drinks/Week Comments Never 0 (1 standard drink = 0.6 oz pur e alcohol) Depression Answer Date Recorded Patient Health Questionnaire-9 Score 3 07/17/2024 Patient Health Questionnaire-9 Score 3 07/17/2024 Last PHQ-9: Questionnaire Data Not on file 0 07/17/2024 Housing Stability Answer Date Recorded What is your housing situation today? I have [place] [facility] 07/17/[address] you li ve. Do you have problems with any of the following? None of the above 07/17/2024 Food Insecurity Answer Date Recorded Within the past 12 months, y ou worried that your food would run out before you got money to buy more: Never True 07/17/2024 Within the past 12 months,th e food you bought just didn't last and you didn't have enough money to get more: Never True Transportation Answer Date Recorded In the past 12 months, has l ack of transportation kept you from medical appts, meetings, work or from getting things needed for daily living? No 07/17/2024 Utilities Answer Date Recorded In the past 12 months, has t he electric, gas, oil or water company threatened to shut off services in your home? No 07/17/2024 Depression Answer Date Recorded Patient Health Questionnaire-2 Score 0 07/17/2024 Internet Access Answer Date Recorded Internet Access Q1 No 07/17/2024 Internet Access Q2 I do not want or need it 06/23 Sex and Gender Information Value Date Recorded Sex Assigned at Male 08/21/2022 10:14 AM EDT Legal Sex Male 10:14 AM EDT Gender Identity Male 08/21/2022 10:14 AM EDT Sexual Orientation Straight 08/21/2022 10 :14 AM EDT documented as of this encounter Miscellaneous Notes * Telephone Encounter - Ronan Guthrie - 01/07/2025 1:18 PM EDT Tc from pt requesting info from a referral for orthopedics or gis scientist he 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 Pt was frustrated as he couldn't specify correct information . Please return call [phone] documented in this encounter Plan of Treatment Upcoming Encounters Date Type Department Care Team (Late st Contact Info) Description 08/17/2025 3:00 PM EDT Medication Management [facility]INE [address] [place] [address] Wendi Hernández, Gladis [address] [place] [address] documented as of this encounter Goals Goal Patient Goal Type Associated Problems Recent Progress Patient-Stated? Author Blood Pressure < 140/90 Blood Pressure Essential (primary) hypertension 144/75(2024 4:44 PM EDT) No Shoaib Gonzalez, PharmD documented as of this encounter Visit Diagnoses Not on filedocumented in this encounter Additional Health Concerns Assessment Noted Time PHQ-9 Depression Total Score: 3 07/17/20 24 11:29 AM EDT documented as of this encounter Care Teams Pullman Conductor Relationship Specialty Start Date End Date Josep Pascual MD [address] [place] [id number] PCP - General Internal Medicine 07/22/14 documented as of this encounter
--- OUTSIDE RECORDS SUMMARY | 2025-08-01 14:02 | XMS_ITS | Encounter Summary ---
Author Organization [employer] Address [address] [place] [address] [address] [place] [address] Care Team Providers Care Medical Auditor Name Role Phone Josep Pascual MD Primary Care Provide r Encounter Details Date Type Department Care Team ([facility] Contact Info) Description 11/07/2022 Orders Only [facility] [address] [place], [place] [phone] Faviola Edmonds LPN Social History Tobacco Use [...] Encounters Date Type Department Care Team (Late Contact Info) Description 08/17/2025 3:00 PM EDT Medication Management [facility] MEDICINE [address] [place], [place] [phone] Wendi Hernández, PharmD [address] [place] [address] documented as of this encounter Visit Diagnoses Not on filedocumented in this encounter Care Teams Medical Auditor Relationship Specialty Start Date End Date Josep Pascual MD [address] [place] [address] PCP - General Internal Medicine 07/22/14 documented as of this encounter
--- OUTSIDE RECORDS SUMMARY | 2025-08-01 14:02 | XMS_ITS | Encounter Summary ---
Author Organization [employer] Address [address] [place] [address] [address] [place] [address] Care Team Providers Care Construction Safety Manager Name Role Phone Josep Pascual MD Primary Care Provide r Encounter Details Date Type Department Care Team (Late st Contact Info) Description 02/17/2024 Orders Only [facility] [address] [place] [address] Provider, MD Cari Social History Tobacco Use Types Packs/Day Years [...] Description 08/17/2025 3:00 PM EDT Medication Management [facility] [address] [place] [phone] Wendi Hernández PharmD [address] [place] [address] documented as of this encounter Goals Goal Patient Goal Type Associated Problems Recent Progress Patient-Stated? Author Blood Pressure < 140/90 Blood Pressure Essential (primary) hypertension 144/75(2024 4:44 PM EDT) No Shoaib Gonzalez, PharmD documented as of this encounter Procedures Procedure Name Priority Date/Time Associated Diagnosis Comments COLONOSCOPY Routine 09/06/2015 4:31 PM EST documented in this encounter Results * Hm Colonoscopy (09/06/2015 4:31 PM EST) us Historical Provider HEALTH MAINTENANCE Final Result documented in this encounter Visit Diagnoses Not on filedocumented in this encounter Care Teams Construction Safety Manager Relationship Specialty Start Date End Date Josep Pascual MD [address] [place] [id number] PCP - General Internal Medicine 07/22/14 documented as of this encounter
--- OUTSIDE RECORDS SUMMARY | 2025-08-01 14:02 | XMS_ITS | Encounter Summary ---
Author Organization [employer] Address [address] [place] [address] [address] [place] [address] Care Team Providers Care Stock Mixer Name Role Phone Josep Pascual MD Primary Care Provide r Encounter Details Date Type Department Care Team (Late st Contact Info) Description 08/01/2025 Orders Only GENERIC EXTERNAL DATA DEPARTMENT Provider, Generic External Data Social History Tobacco Use Types Packs/Day Years [...] Medication Management [facility] [address] [place] [address] Wendi Hernández, BijanD [address] [place] [address] documented as of this encounter Goals Goal Patient Goal Type Associated Problems Recent Progress Patient-Stated? Author Blood Pressure < 140/90 Blood Pressure Essential (primary) hypertension 144/75(2024 4:44 PM EDT) No Shoaib Gonzalez PharmD documented as of this encounter Procedures Procedure Name Priority Date/Time Associated Diagnosis Comments COVID-19 ID NOW (HACKETT) Routine 08/01/2025 1:42 PM EDT CBC WITH AUTO DIFFERENTIAL Routine 08/01/2025 1:42 PM EDT documented in this encounter Results * (ABNORMAL) COVID-19 ID NOW (HACKETT) (08/01/2025 1:42 PM EDT) IDNOW SERIAL# [id number] [facility] COVID-19 TEST Positive (A) Negative [facility] COVID-19 NOTE See Note [facility] Comment: Results are for the identification of SARS-CoV2 RNA. TheSARS-CoV2 RNA is generally detectable in respiratory samplesduring the acute phase of infection. Positive results areindicative of the presence of SARS-CoV-2 RNA; clinicalcorrelation with patient history and other diagnosticinformation is necessary to determine patient infectionstatus. Positive results do not rule out bacterial infectionor co- infection with other viruses.Testing facilities within the [place] and [facility] are required to report all positive results tothe appropriate public health authorities.Negative results should be treated as presumptive and, ifinconsistent with clinical signs and symptoms or necessaryfor patient management, should be tested with differentauthorized or cleared molecular tests. Negative results donot preclude SARS-CoV2 RNA infection and should not be usedas the sole basis for patient management decisions. Negativeresults should be considered in the context of a patient'srecent exposures, history and the presence of clinical signsand symptoms consistent with COVID-19.This test has been authorized by the FDA under an EmergencyUse Authorization (EUA) for use by authorized laboratories.Testing performed on the [facility] NOW utilizing NAAT. 08/01/2025 1:42 PM EDT 08/01/2025 1:48 PM EDT us Generic External Data Provider LAB MOLECULAR SAJI GNO[employer] ORDERABLES Final Result [facility] [address] [place] [phone] * (ABNORMAL) CBC auto differential (08/01/2025 1:42 PM EDT) White Blood Count 7.4 4.8 - 10.8 X10*3/uL [facility] Red Blood Count 3.85(L) 4.60 - 5.80 X10*6/uL [facility] Hemoglobin 11.8(L) 14.0 - 18.0 g/dl [facility] Hematocrit 36.2(L) 42.0 - 52.0 % [facility] Mean Corpuscular Volume 94.0 80.0 - 98.0 fL [facility] Mean Corpuscular Hemoglobin 30.6 27.0 - 33.0 pg [facility] Mean Corpuscular HGB Conc 32.6 31.0 - 36.0 g/dl [facility] Red Cell Distribution Width 12.1 11.0 - 16.0 % [facility] Platelet Count 242 160 - 400 X10*3/uL [facility] Mean Platelet Volume 9.6 9.4 - 12.4 fL [facility] Neutrophils Percent Auto 74.7(H) 45 - 73 % [facility] Imm Gran Pct Auto 0.3 0.0 - 0.4 % [facility] Lymphocytes Percent Auto 14.4(L) 20 - 40 % [facility] Monocytes Percent Auto 8.9 2 - 11 % [facility] Eosinophils Percent Auto 1.2 0 - 4 % [facility] Basophils Percent Auto 0.5 0 - 2 % [facility] NRBC Pct Auto 0.0 0.0 - 0.2 /100WBC [facility] Neutrophils Absolute Auto 5.5 2.0 - 8.3 x10*3/uL [facility] Imm Gran Abs Auto 0.02 0.00 - 0.03 X10*3/uL [facility] Lymphocytes Absolute Auto 1.1(L) 1.2 - 4.9 X10*3/uL [facility] Monocytes Absolute Auto 0.7 0.1 - 1.2 X10*3/uL [facility] Eosinophils Absolute Auto 0.1 0.0 - 0.4 X10*3/uL [facility] Basophils Absolute Auto 0.0 0.0 - 0.2 X10*3/uL [facility] NRBC Abs Auto 0.000 0.0 - 0.012 X10*3/uL [facility] 08/01/2025 1:42 PM EDT 08/01/2025 1:48 PM EDT us Generic External Data Provider LAB BLOOD ORDERAB LES Final Result [facility] [address] [place] [address] [phone] documented in this encounter Visit Diagnoses Not on filedocumented in this encounter Additional Health Concerns Assessment Noted Time PHQ-9 Depression Total Score: 3 07/17/20 24 11:29 AM EDT documented as of this encounter Care Teams Stock Mixer Relationship Specialty Start Date End Date Josep Pascual MD [address] [place] [phone] PCP - General Internal Medicine 07/22/14 documented as of this encounter
--- OUTSIDE RECORDS SUMMARY | 2025-08-01 14:02 | XMS_ITS | Clinical Summary ---
Author Organization [employer] Address [address] [place] [address] [address] [place] [address] Care Team Providers Care Voice Studies Director Name Role Phone Josep Pascual MD Primary Care Provide r Allergies No known active allergies Medications Aspirin Low Dose 81 MG EC tablet Take 81 mg by mouth in the morning. 01/20/20 23 Active metoprolol tartrate (Lopressor) 25 MG tablet 03/22/20 23 Active oxybutynin XL (Ditropan-XL) 5 MG 24 hr tablet Take 5 mg by mouth at bedtime. 02/20/20 23 Active Alcohol Swabs (Alcohol Prep) 70 % pads USE DIRECTED TWICE DAILY 100 each 6 06/20/20 23 Active Multiple Vitamins-Minerals (Cerovite Senior) tablet TAKE 1 TABLET BY MOUTH EVERY MORNING 90 tablet 3 07/21/20 24 Active TRUEplus Lancets 33G miscIndications:T ype 2 diabetes mellitus without complications (HCC) USE TO TEST BLOOD SUGAR ONCE A DAY 100 each 5 10/02/20 24 Active glucose blood (FREESTYLE LITE) test stripIndications: Type 2 diabetes mellitus without complications (HCC) USE TO TEST BLOOD SUGAR ONCE A DAY 100 strip 5 10/02/20 24 Active omeprazole (PriLOSEC) [address] capsuleIndication s:Reflux gastritis TAKE 1 CAPSULE BY MOUTH EVERY MORNING BEFORE BREAKFAST 90 capsule 1 02/24/20 25 Active atorvastatin (Lipitor) 80 MG tablet TAKE 1 TABLET BY MOUTH EVERY MORNING 90 tablet 1 02/24/20 25 Active amLODIPine (Norvasc) 5 MG tablet TAKE 1 TABLET BY MOUTH AT BEDTIME 90 tablet 2 03/03/20 25 Active enalapril (Vasotec) 5 MG tabletIndications :Essential (primary) hypertension Take 1 tablet (5 mg) by mouth Once per day. 30 tablet 6 03/12/20 25 Active metFORMIN XR (Glucophage-XR) 500 MG 24 hr tablet TAKE 1 TABLET BY MOUTH EVERY EVENING WITH FOOD 90 tablet 3 07/02/20 25 Active gabapentin (Neurontin) 100 MG capsuleIndication s:Pain TAKE 1 CAPSULE BY MOUTH AT BEDTIME 30 capsule 07/09/20 25 Active sildenafil (Viagra) 100 MG tablet TAKE 1 TABLET 1 HOUR BEFORE SEXUAL RELATIONS ONCE DAILY NEEDED. 10 tablet 07/14/20 25 Active sildenafil (Viagra) 100 MG tablet TAKE 1 TABLET 1 HOUR BEFORE SEXUAL RELATIONS ONCE DAILY NEEDED. 10 tablet 06/04/20 25 025 Discontinued gabapentin (Neurontin) 100 MG capsuleIndication s:Pain TAKE 1 CAPSULE BY MOUTH AT BEDTIME 30 capsule 06/10/20 25 025 Discontinued Active Problems Problem Noted Date Diagnosed Date Levoscoliosis of thoracic spine 08/26/2024 Assessment & Plan (09/30/2024 1:01 PM EST): Seen by dr de la rosa for c/o back pain Plain films 07/2024 showed: Mild levoscoliosis thoracic spine Pt was referred to chiropractor Upper back pain on right side 08/20/2024 Assessment & Plan (08/20/2024 7:55 PM EDT): It doesn't seem to be muscular, unclear if he has a rib or intra thoracic pathology, will order Xrays. Take Tylenol prn pain + heat to affected area FU with PCP in 4-5w or earlier prn if he develops fever, worsening of pain, SOB, CP. BPH (benign prostatic hyperplasia) 07/18/2024 Assessment & Plan (07/18/2024 3:32 PM EDT): Seen in the past by Urology , last note 11/2022 PSA normal 12/21/22: 1.42 Preventative health care 07/17/2024 Assessment & Plan (09/30/2024 12:54 PM EST): PSA:08/06/2024 Normal Colonoscopy: Normal : 09/06/2015 Vaccines: Tdap: 09/28/2012 Pneumovax: 08/05/2004 zoster: 01/05/2015 Assessment & Plan (07/17/2024 11:54 AM EDT): : Nl 01/09/2017 Colonoscopy: Normal : 09/06/2015 Vaccines: flu shot Tdap: 09/28/2012 Pneumovax: 08/05/2004 zoster: 01/05/2015 Edema of lower extremity 07/04/2023 Vascular insufficiency 05/11/2023 Essential (primary) hypertension 09/06/2020 Overview (03/12/2025): Assessment & Plan (03/12/2025 3:01 PM EDT): Patient is here for a follow up for Hypertension currently uncontrolled on a regimen of: Amlodipine 10 mg po daily, Enalapril 2.5 mg po daily and Metoprolol 25 mg po BID Most recent electrolytes, Bun and Creatinine done on: Lab Results Component Value Date NA 138 08/06/2024 NA 141 08/20/2023 K 4.4 08/06/2024 K 4.8 08/20/2023 CL 105 08/06/2024 CL 105 08/20/2023 BUN 24 (H) 08/06/2024 BUN 19 (H) 08/20/2023 CREATININE 0.98 08/06/2024 CREATININE 1.14 08/20/2023 were within normal limits. patient advised to adhere to a low sodium diet, encouraged about medication compliance, counseled about weight loss. Plan: Increase Enalapril to 5 mg po daily Repeat BMP 3 month follow up Assessment & Plan (09/30/2024 12:51 PM EST): Patient here for a follow up for Hypertension currently controlled on a regimen of: Amlodipine 10 mg po daily, Enalapril 2.5 mg po daily and Metoprolol 25 mg po BID Given adequate blood pressure control will continue with current medical regimen. Most recent electrolytes, Bun and Creatinine done on: Lab Results Component Value Date NA 138 08/06/2024 NA 141 08/20/2023 K 4.4 08/06/2024 K 4.8 08/20/2023 CL 105 08/06/2024 CL 105 08/20/2023 BUN 24 (H) 08/06/2024 BUN 19 (H) 08/20/2023 CREATININE 0.98 08/06/2024 CREATININE 1.14 08/20/2023 were within normal limits. patient advised to adhere to a low sodium diet, encouraged about medication compliance, counseled about weight loss. Assessment & Plan (07/17/2024 11:46 AM EDT): Patient with Hypertension currently controlled on a regimen of: Amlodipine 10 mg po daily, Enalapril 2.5 mg po daily and Metoprolol 25 mg po BID Given adequate blood pressure control will continue with current medical regimen. Most recent electrolytes, Bun and Creatinine done on: 08/20/2023 were within normal limits. Will repeat patient advised to adhere to a low sodium diet, encouraged about medication compliance, counseled about weight loss. Assessment & Plan (08/20/2023 3:31 PM EDT): Assessment: - BP is at goal of less than 140/90 per JNC8 guidelines Plan: - Continue with current therapy and monitoring Post-inflammatory hyperpigmentation 08/30/2018 Coronary arteriosclerosis 01/05/2015 Assessment & Plan (07/17/2024 11:42 AM EDT): Under the care of Cardiology, last seen 04/17/2024 He is s/p RCA stenting 2013; moderately severe disease in the left circumflex into obtuse marginal that was ballooned. Last stress test is from 2015 that showed no ischemic findings. Clinically, he has got absolutely no angina. Continue aspirin lifelong. Continue beta-blockers and high-dose statins. Last LDL cholesterol 66 mg/dl. Glaucoma suspect 01/08/2013 Impaired fasting glucose 01/08/2013 Overview (08/20/2023): Pharmacotherapy: - Metformin 500mg daily History: At home fasting bg is less than 120mg/dl Assessment & Plan (07/18/2024 3:26 PM EDT): Pt is here for a follow up Hgb A1c on 01/25/2022 was 5.4 Plan: Continue Metformin XR 500 mg 1 tab po with evening meal Pt advised to: adhere to diabetic diet check your blood sugars regularly check your feet on a daily basis. Repeat FBG f/u 4 months Assessment & Plan (08/20/2023 3:39 PM EDT): Assessment: - A1c is at goal of less than 7% Recommendation: - Suggest stopping metformin Chronic kidney disease (CKD) , stage III (moderate) ([facility]) 10/08/2012 Assessment & Plan (03/12/2025 2:46 PM EDT): Here for a f/u Used to be under the care of Dr. Rust last note on record from 01/09/2021. No longer BMP Lab Results Component Value Date NA 138 08/06/2024 NA 141 08/20/2023 K 4.4 08/06/2024 K 4.8 08/20/2023 CL 105 08/06/2024 CL 105 08/20/2023 BUN 24 (H) 08/06/2024 BUN 19 (H) 08/20/2023 CREATININE 0.98 08/06/2024 CREATININE 1.14 08/20/2023 Will repeat BMP Assessment & Plan (09/30/2024 12:52 PM EST): Here for a f/u Used to be under the care of Dr. Rust last note on record from 01/09/2021. BMP Lab Results Component Value Date NA 138 08/06/2024 NA 141 08/20/2023 K 4.4 08/06/2024 K 4.8 08/20/2023 CL 105 08/06/2024 CL 105 08/20/2023 BUN 24 (H) 08/06/2024 BUN 19 (H) 08/20/2023 CREATININE 0.98 08/06/2024 CREATININE 1.14 08/20/2023 Assessment & Plan (07/18/2024 3:29 PM EDT): Here for a f/u Used to be under the care of Dr. Rust last note on record from 01/09/2021. BMP 08/20/2023 Normal Erectile dysfunction 06/05/2012 Hypertriglyceridemia 06/05/2012 Assessment & Plan (09/30/2024 12:53 PM EST): Most recent lipid profile from: Lab Results Component Value Date TRIG 159 (H) 08/06/2024 CHOL 136 08/06/2024 LDLCHOLCAL 67 08/06/2024 HDL 38 (L) 08/06/2024 Currently on a regimen of: Lipitor 80 mg po daily For now will continue with current regimen. advised to try to adhere to a low cholesterol diet, counseled and educated about diet and exercise, Patient encouraged to come up with a personal goal for weight loss. Assessment & Plan (07/17/2024 11:47 AM EDT): Most recent lipid profile from: 01/25/2022 shows a total cholesterol of: 131 triglycerides of: 161 HDL of: 40 and LDL of: 67 Currently on a regimen of: Lipitor 80 mg po daily For now will continue with current regimen. Repeat Lipid profile advised to try to adhere to a low cholesterol diet, counseled and educated about diet and exercise, Patient encouraged to come up with a personal goal for weight loss. 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 Resolved Problems Problem Noted Date Diagnosed Date Resolved Date Type 2 diabetes mellitus without complication 05/11/20 23 08/20/2023 Overview (08/20/2023): Pharmacotherapy: - Metformin Uncomplicated severe persistent asthma 05/11/2023 07/18/2024 Encounters Date Type Department Care Team Description 08/01/2025 Orders Only GENERIC EXTERNAL DATA DEPARTMENT Provider, Generic External Data 07/13/2025 Refill [facility] MEDICINE [address] [place] [address] Kait Child ANP 07/09/2025 Refill C MEDICINE [address] [place] [address] Josep Pascual MD Pain 07/07/2025 Refill C MEDICINE [address] [place] [address] Linda Reed MD Pain 07/02/2025 Refill [facility] [address] [place] [address] Josep Pascual MD 06/10/2025 Refill [facility] MEDICINE [address] [place] [address] Josep Pascual MD Pain 06/02/2025 Refill [facility] MEDICINE [address] [place] [address] Josep Pascual MD 05/25/2025 Telephone [facility] MEDICINE [address] [place] [address] Josep Pacsual MD Lab Orders 05/14/2025 Refill [facility] MEDICINE [address] [place] [address] Josep Pascual MD Pain 05/05/2025 Refill [facility] WALK-IN CENTER [address] [place] [address] Jose A Hannah MD 05/04/2025 Telephone [facility] MEDICINE [address] [place] [address] Josep Pascual MD chart prep from Last 3 Months Immunizations Immunization Administration Dates Next Due Hep B, adult 07/03/2000,02/02/2000,01/02/2000 Influenza High-dose Quadriva lent Preservative Free 10/03/2023,08/24/2022 Influenza Injectable Quadriv alant Preservative Free IIV4 MDCK 08/23/2020 Influenza injectable quadriv alent IIV4 with preservative 09/05/2016,07/08/2015 Influenza injectable quadriv alent preservative free 08/30/2021,01/05/2015 Influenza, High Dose Seasona l, Preservative Free 07/17/2024,07/11/2018,08/02/2017 Influenza, IIV3, injectable 11/05/2009 Influenza, Split (incl. malcolm fied surface antigen) 09/28/2014,12/15/2013,10/08/2012 Influenza, seasonal, injecta ble, preservative free 09/30/2024,08/01/2014 Moderna Covid-19 Vaccine 6+ Bivalent 11/07/2022 Pneumococcal Conjugate PCV 13 09/05/2016 Pneumococcal Conjugate PCV 20 10/03/2023 Pneumococcal Polysaccharide PPSV23 09/28/2014, TD (adult), 2 Lf tetanus tox oid, preservative free, adsorbed 07/11/2006 Tdap 05/02/2023,10/08/2012 Zoster, Recombinant 05/24/2022,03/01/2022 Zoster, live 01/05/2015 Family History Medical History Relation Name Comments Hypertension Father Stroke Father Relation Name Status Comments Father Social History Tobacco Use Types Packs/Day Years Used Date Smoking Tobacco: Never Passive Smoke Exposure: Never Smokeless Tobacco: Never Tobacco Cessation:Counseling Given: Not Answered Alcohol Use Standard Drinks/Week Comments Never 0 (1 standard drink = 0.6 oz pur e alcohol) Depression Answer Date Recorded Patient Health Questionnaire-9 Score 3 07/17/2024 Patient Health Questionnaire-9 Score 3 07/17/2024 Last PHQ-9: Questionnaire Data Not on file 0 07/17/2024 Housing Stability Answer Date Recorded What is your housing situation today? I have kelsey singh 07/17/[address] you [...] Orientation Straight 08/21/2022 10 :14 AM EDT Last Filed Vital Signs Vital Sign Reading Time Taken Comments Blood Pressure 144/75 03/30/2025 4:44 PM EDT Pulse 66 03/30/2025 4:44 PM EDT Temperature 36.8 C (98.3 F) 03/30/2025 4:44 PM EDT Respiratory Rate 20 03/30/2025 4:44 PM EDT Oxygen Saturation 99% 03/30/2025 4:44 PM EDT Inhaled Oxygen Concentration - - Weight 76.4 kg (168 lb 6.4 oz) 03/30/2025 4:44 P M EDT Height 170.2 cm (5' 7 ) 03/30/2025 4:44 PM EDT Body Mass Index 26.38 03/30/2025 4:44 PM EDT Plan of Treatment Upcoming Encounters Date Type Department Care Team (Late st Contact Info) Description 08/17/2025 3:00 PM EDT Medication Management [facility] MEDICINE [address] [place] [address] Wendi Hernández, PharmD [address] [place] [address] Health Maintenance Due Date Last Done Comments CT Colonography 1949 FIT DNA/Cologuard 1949 FIT 1949 FOBT 1950 Sigmoidoscopy 1949 Diabetes: Foot Exam 1959 Eye Exam 1959 Diabetes: Urine Protein Screening 01/25/2023 01/25/2022, 05/04/2021 RSV Patients and Patients Aged 60 years or older (1 - 1-dose 75+ series) 2024 COVID-19 Vaccine ( season) 2025 11/07/2022, 09/22/2021, 01/18/2021, Additional history exists Influenza Vaccine (#1) 2025 , 07/17/2024, 10/03/2023, Additional history exists Depression Screening 07/17/2025 07/17/2024, 07/17/20 24 SDOH Screening 07/17/2025 07/17/2024 Lipid Panel 08/06/2025 08/06/2024, 11/0 05/2022, 01/25/2022, Additional history exists Tobacco Screening 08/20/2025 08/20/2024 Colonoscopy 09/06/2025 09/06/2015 Colorectal Cancer Screening 09/06/2025 Diabetes: Hemoglobin A1C 09/29/2025 025, 01/25/2022, 02/09/2021 Alcohol/Substance Use Screening 09/30/2025 09/30/2024 DTaP/Tdap/Td Vaccines (3 - Td or Tdap) 05/02/2033 05/02/2023, 10/08/2012, 07/11/2006 Hepatitis B Vaccines Completed 07/03/2000, 02/02/2000, 01/02/2000 Hepatitis C Screening Completed 01/25/2022 Zoster Vaccines Completed 05/24/2022, 02/19, 01/05/2015 Pneumococcal [...] patient's age to complete this topic Meningococcal Vaccine Aged Out No tiffani leeann eligible based on patient's age to complete this topic RSV under 20 months Aged Out No longe r eligible based on patient's age to complete this topic Rotavirus Vaccines Aged Out No longer eligible based on patient's age to complete this topic Goals Goal Patient Goal Type Associated Problems Recent Progress Patient-Stated? Author Blood Pressure < 140/90 Blood Pressure Essential (primary) hypertension 144/75(2024 4:44 PM EDT) No Shoaib Gonzalez, BijanD Procedures Procedure Name Priority Date/Time Associated Diagnosis Comments COVID-19 ID NOW (HACKETT) Routine 08/01/2025 1:42 PM EDT CBC WITH AUTO DIFFERENTIAL Routine 08/01/2025 1:42 PM EDT POCT GLYCATED HEMOGLOBIN, TOTAL Routine 03/30/2025 6:10 PM EDT Impaired fasting glucose LIPID PANEL, STANDARD Routine 08/06/2024 9:50 AM EDT Hypertriglyceridemi a ZZZ HISTORICAL HEPATITIS C AB W/REFL TO HCV RNA, QN, PCR Routine 01/25/2022 8:52 AM EDT ALBUMIN, RANDOM URINE W/CREATININE Routine 01/25/2022 8:52 AM EDT HM COLONOSCOPY Routine 09/06/2015 4:31 PM EST from Last 3 Months or Most Recently Relevant to Health Maintenance Results * (ABNORMAL) COVID-19 ID NOW (HACKETT) (08/01/2025 1:42 PM EDT) IDNOW SERIAL# [id number] [facility] COVID-19 TEST Positive (A) Negative [facility] COVID-19 NOTE See Note [facility] Comment: Results are for the identification of SARS-CoV2 RNA. TheSARS-CoV2 RNA is generally detectable in respiratory samplesduring the acute phase of infection. Positive results areindicative of the presence of SARS-CoV-2 RNA; clinicalcorrelation with patient history and other diagnosticinformation is necessary to determine patient infectionstatus. Positive results do not rule out bacterial infectionor co- infection with other viruses.Testing facilities within the [place] and itsterritories are required to report all positive results [...] use by authorized laboratories.Testing performed on the musiXmatch ID NOW utilizing NAAT. 08/01/2025 1:42 PM EDT 08/01/2025 1:48 PM EDT us Generic External Data Provider LAB MOLECULAR SAJI GNOSTICS ORDERABLES Final Result [facility] [address] [place], [place] [phone] * (ABNORMAL) CBC auto differential (08/01/2025 1:42 PM EDT) White Blood Count 7.4 4.8 - 10.8 X10*3/uL [facility] Red Blood Count 3.85(L) 4.60 - 5.80 X10*6/uL [facility] Hemoglobin 11.8(L) 14.0 - 18.0 g/dl [facility] Hematocrit 36.2(L) 42.0 - 52.0 % [facility] Mean Corpuscular Volume 94.0 80.0 - 98.0 fL [facility] Mean Corpuscular Hemoglobin 30.6 27.0 - 33.0 pg [facility] Mean Corpuscular HGB Conc 32.6 31.0 - 36.0 g/dl [facility] Red Cell Distribution Width 12.1 11.0 - 16.0 % [facility] Platelet Count 242 160 - 400 X10*3/uL [facility] Mean Platelet Volume 9.6 9.4 - 12.4 fL [facility] Neutrophils Percent Auto 74.7(H) 45 - 73 % [facility] Imm Gran Pct Auto 0.3 0.0 - 0.4 % [facility] Lymphocytes Percent Auto 14.4(L) 20 - 40 % [facility] Monocytes Percent Auto 8.9 2 - 11 % [facility] Eosinophils Percent Auto 1.2 0 - 4 % [facility] Basophils Percent Auto 0.5 0 - 2 % [facility] NRBC Pct Auto 0.0 0.0 - 0.2 /100WBC [facility] Neutrophils Absolute Auto 5.5 2.0 - 8.3 x10*3/uL [facility] Imm Gran Abs Auto 0.02 0.00 - 0.03 X10*3/uL [facility] Lymphocytes Absolute Auto 1.1(L) 1.2 - 4.9 X10*3/uL [facility] Monocytes Absolute Auto 0.7 0.1 - 1.2 X10*3/uL [facility] Eosinophils Absolute Auto 0.1 0.0 - 0.4 X10*3/uL [facility] Basophils Absolute Auto 0.0 0.0 - 0.2 X10*3/uL [facility] NRBC Abs Auto 0.000 0.0 - 0.012 X10*3/uL [facility] 08/01/2025 1:42 PM EDT 08/01/2025 1:48 PM EDT us Generic External Data Provider LAB BLOOD ORDERAB LES Final Result Performing Organization Address City/State/[facility] Co de Phone Number [facility] [address] [place] [phone] * POCT HGB A1C (03/30/2025 6:10 PM EDT) Pathologist [facility] Hemoglobin A1C 5.2 4.0 - 6.0 % QC Media Lot # [id number] Lot# Expiration Date Blood 03/30/2025 6:10 PM EDT Jose A Ko MD POINT OF CARE TEST ENTER/EDIT ORDERABLES Final Result * (ABNORMAL) Lipid Panel, Standard (08/06/2024 9:50 AM EDT) Pathologist [facility] Triglycerides 159(H) <150 mg/dL [facility] Comment:Desirable Triglyceri de: less than 150 mg/dLBorderline High Triglyceride 150-199 mg/dLHigh Triglyceride: 200-499 mg/dLVery High Triglyceride: greater than or equal to 5OO mg/dL Cholesterol 136 <200 mg/dL [facility] Comment:Desirable Cholestero l: less than 200 mg/dLBorderline High Cholesterol: 200-239 mg/dLHigh Cholesterol: greater than 239 mg/dL LDL Cholesterol Calculated 67 <100 mg/dL [facility] Comment:Desirable LDL: less than 100 mg/dLNear Optimal/Above Optimal LDL: 110- 129 mg/dLBorderline High LDL: 130-159 mg/dLHigh LDL: 160-189 mg/dLVery High LDL: greater than or equal to 190 mg/dL HDL Cholesterol 38(L) >40 mg/dL [facility] Comment:Desirable HDL: great er than 40 mg/dL Note: This HDL assay may give artificially low results in patients with liver disease. Blood Venous blood specimen / Unknown 08/06/2024 9:50 AM EDT 08/06/2024 11:37 AM EDT us Josep Agarwal MD LAB BLOOD ORDERABLES Final Result [facility] [address] [place] [phone] * HEPATITIS C AB W/REFL TO HCV RNA, QN, PCR (01/25/2022 8:52 AM EDT) HEPATITIS C ANTIBODY NON-REACT [facility] NON-REACT [facility] INDEX 0.01 <1.00 [facility] Comment: HCV antibody was non-reactive. There is no laboratory evidence of HCV infection. In most cases, no further action is required. However, if recent HCV exposure is suspected, a test for HCV RNA (test code 32087) is suggested. For additional information please refer to http://education.[employer] [facility]/faq/NZV01m5 (This link is being provided for informational/ educational purposes only.) 01/25/2022 8:52 AM EDT Josep Agarwal MD HISTORICAL/NON ORDERA BLE LABS Final Result Performing Organization Address [facility] Co de Phone Number [facility] [address] [place] [address], * (ABNORMAL) ALBUMIN, RANDOM URINE W/CREATININE (01/25/2022 8:52 AM EDT) Microalbumin Urine 13.2 See Note: mg/dL [facility] Comment: Reference Range: Reference Range Not established Microalb/Creat Ratio 46(H) <30 mcg/mg creat [facility] Comment: The ADA defines abnormalities in albumin excretion as follows: Albuminuria Category Result (mcg/mg creatinine) Normal to Mildly increased <30 Moderately increased 30-299 Severely increased > OR = 300 The ADA recommends that at least two of three specimens collected within a 3-6 month period be abnormal before considering a patient to be within a diagnostic category. Creatinine, Urine 289 20 - 320 mg/dL [facility] 01/25/2022 8:52 AM EDT Josep Agarwal MD LAB URINE ORDERABLES Final Result Performing Organization Address [facility] Co de Phone Number [facility] [address] [place] [address], * Hm Colonoscopy (09/06/2015 4:31 PM EST) Historical Provider HEALTH MAINTENANCE Final Result from Last 3 Months or Most Recently Relevant to Health Maintenance Care Teams Voice Studies Director Relationship Specialty Start Date End Date Josep Pascual MD [address] [place] [phone] PCP - General Internal Medicine 07/22/14
--- OUTSIDE RECORDS SUMMARY | 2025-08-01 14:02 | XMS_ITS | Encounter Summary ---
Author Organization [facility], Address [address] [place] [address] Phone Care Team Providers Care Acid Bath Mixer Name Role Phone Josep Sellers MD Primary Care Provider Unav ailable Encounter Details Date Type Department Care Team (Late st Contact Info) Description 03/30/2022 Documentation Only [facility], [address] [place] [address] Jimmie Corrales MD [address] [place] [address] Social History Tobacco Use Types Packs/Day Years Used Date Smoking Tobacco: Never Alcohol Use Standard Drinks/Week Comments No 0 (1 standard drink = 0.6 oz pur e alcohol) Sex and Gender Information Value Date Recorded Sex Assigned at Not on file Legal Sex Male 11:25 AM EDT Gender Identity Not on file Sexual Orientation Not on file documented as of this encounter Plan of Treatment Not on file documented as of this encounter Visit Diagnoses Not on filedocumented in this encounter Care Teams Acid Bath Mixer Relationship Specialty Start Date End Date Josep Sellers MD PCP - General Internal Medicine 07/30/20 documented as of this encounter
--- OUTSIDE RECORDS SUMMARY | 2025-08-01 14:02 | XMS_ITS | Encounter Summary ---
Author Organization [employer] Address [address] [facility] 7t [place] [address] Care Team Providers Care Welder Machine Operator Name Role Phone Josep Pascual MD Primary Care Provide r Encounter Details Date Type Department Care Team (Late st Contact Info) Description 07/09/2025 Refill [facility] MEDICINE [address] [place], [place] [phone] Josep Pascual MD [address] [place], [place] [phone] Pain Social History Tobacco Use Types Packs/Day [...] Description 08/17/2025 3:00 PM EDT Medication Management [facility] MEDICINE [address] [place] [address] Wendi Hernández, PharmD [address] [place] [address] documented as of this encounter Goals Goal Patient Goal Type Associated Problems Recent Progress Patient-Stated? Author Blood Pressure < 140/90 Blood Pressure Essential (primary) hypertension 144/75(2024 4:44 PM EDT) No Shoaib Gonzalez, PharmD documented as of this encounter Visit Diagnoses Diagnosis Pain Generalized pain documented in this encounter Additional Health Concerns Assessment Noted Time PHQ-9 Depression Total Score: 3 07/17/20 24 11:29 AM EDT documented as of this encounter Care Teams Welder Machine Operator Relationship Specialty Start Date End Date Josep Pascual MD [address] [place] [address] PCP - General Internal Medicine 07/22/14 documented as of this encounter
--- OUTSIDE RECORDS SUMMARY | 2025-08-01 14:02 | XMS_ITS | Clinical Summary ---
Author Organization [address] [place] [address] Address [address] [place] [address] Phone Care Team Providers Care Vp Delivery Name Role Phone Josep Prieto MD Primary Care Provi luz maria Allergies No known active allergies Medications naproxen (EC NAPROSYN) 500 mg EC tablet Take 1 tablet (500 mg total) by mouth 2 (two) times a day. Active meloxicam (MOBIC) 15 mg tablet Take 1 tablet (15 mg total) by mouth 1 (one) time each day. For 60 days Active Active Problems Problem Noted Date Diagnosed Date Plantar fasciitis, bilateral 05/02/2024 Encounters Date Type Department Care Team Description 05/07/2025 3:30 PM EDT Office Visit Orthopedic Surgery - [place] [address] [facility] [address] [place] [phone] Rohit Elliott, DPM Plantar fascial fibromatosis (Primary Dx); Hallux rigidus of right foot; Equinus contracture of ankle from Last 3 Months Social History Tobacco [...] 03/05/2025 4:02 PM EDT Plan of Treatment Health Maintenance Due Date Last Done Comments Colorectal Cancer Screening: Colonoscopy 1950 [place] Risk Assessment 05/15/2024 Hepatitis C Screening 05/15/2024 Medicare Annual Wellness Visit 05/15/2024 Social Influencers of Health Screening 05/15/2024 RSV Immunization Adult Patients (1 - 1-dose 75+ series) 2024 Depression Screening 10/22/2024 COVID-19 Vaccine ( - season) 2025 11/07/2022, 09/22/2021, 01/18/2021, Additional history [...] Informed Consent: Site: Foot ligament tendon us Rohit Elliott DPM IN CLINIC/BEDSIDE ORDERAB LES Final Result from Last 3 Months Insurance MEDICARE MEDICAID - [place] Care Teams Vp Delivery Relationship Specialty Start Date End Date Josep Prieto MD [address] [place] [phone] PCP - General 08/10/14
--- OUTSIDE RECORDS SUMMARY | 2025-08-01 14:02 | XMS_ITS | Clinical Summary ---
Author Organization [facility], Address [address] [place] [address] [place] [address] Phone Care Team Providers Care Cdl Team Truck Driver Name Role Phone Josep Sellers MD Primary Care Provider Unav ailable Allergies [...] topic Insurance Medicare Medicaid [place] Care Teams Cdl Team Truck Driver Relationship Specialty Start Date End Date Josep Sellers MD PCP - General Internal Medicine 07/30/20
--- OUTSIDE RECORDS SUMMARY | 2025-08-01 14:02 | XMS_ITS | Encounter Summary ---
Author Organization [employer] Address [address] [place] [address] 7t [place] [address] Care Team Providers Care Supervisor Train Operations Name Role Phone Josep Pascual MD Primary Care Provide r Encounter Details Date Type Department Care Team ([facility] Contact Info) Description 11/27/2022 Orders Only [facility] CHC MED & PEDS [address] [place], [place] [phone] Faviola Edmonds LPN Social History Tobacco Use [...] Description 08/17/2025 3:00 PM EDT Medication Management [facility] MEDICINE [address] [place], [place] [phone] Wendi Hernández, PharmD [address] [place] [address] documented as of this encounter Visit Diagnoses Not on filedocumented in this encounter Care Teams Supervisor Train Operations Relationship Specialty Start Date End Date Josep Pascual MD [address] [place] [address] PCP - General Internal Medicine 07/22/14 documented as of this encounter
--- OUTSIDE RECORDS SUMMARY | 2025-08-01 14:02 | XMS_ITS | Encounter Summary ---
Author Organization [employer] Address [address] [place] [address] 7[address] [place] [address] Care Team Providers Care Airline Pilot Name Role Phone Josep Pascual MD Primary Care Provide r Encounter Details Date Type Department Care Team (Late st Contact Info) Description 08/06/2023 Telephone [facility] MEDICINE [address] [place] [address] [phone] Josep Pascual MD [address] [place] [address] [phone] Social History Tobacco Use Types Packs/Day Years [...] Description 08/17/2025 3:00 PM EDT Medication Management [facility] MEDICINE [address] [place] [phone] Wendi Hernández, PharmD [address] [place] [address] documented as of this encounter Visit Diagnoses Not on filedocumented in this encounter Care Teams Airline Pilot Relationship Specialty Start Date End Date Josep Pascual MD [address] [place] [address] PCP - General Internal Medicine 07/22/14 documented as of this encounter
--- OUTSIDE RECORDS SUMMARY | 2025-08-01 14:02 | XMS_ITS | Encounter Summary ---
Author Organization [email or web address] Address [address] [place] [address] 7t [place] [address] Care Team Providers Care Trouble Tracer Name Role Phone Josep Pascual MD Primary Care Provide r Encounter Details Date Type Department Care Team (Late st Contact Info) Description 03/01/2023 Abstract [facility] MEDICINE [address] [place] [address] [phone] Josep Pascual MD [address] [place], [place] [phone] Social History Tobacco Use Types Packs/Day Years [...] suspected to have Coronavirus/COVID-19? No / Unsure 02/06/2023 3:54 PM EDT documented as of this encounter Plan of Treatment Upcoming Encounters Date Type Department Care Team (Late st Contact Info) Description 08/17/2025 3:00 PM EDT Medication Management [facility] MEDICINE [address] [place] [address] Wendi Hernández, PharmD [address] [place] [address] documented as of this encounter Visit Diagnoses Not on filedocumented in this encounter Care Teams Trouble Tracer Relationship Specialty Start Date End Date Josep Pascual MD [address] [place] [address] PCP - General Internal Medicine 07/22/14 documented as of this encounter
--- OUTSIDE RECORDS SUMMARY | 2025-08-01 14:02 | XMS_ITS | Encounter Summary ---
Author Organization [employer] Address [address] [place] [address] 7t [place] [address] Care Team Providers Care Barrel Charrer Name Role Phone Josep Pascual MD Primary Care Provide r Reason for Visit * Reason Comments Med Refill Encounter Details Date Type Department Care Team ([facility] st Contact Info) Description 11/03/2024 Refill [facility] MEDICINE [address] [place], [place] [phone] Lillian Gonzalez MD [address] [place], [place] [phone] Pain Social History Tobacco Use Types Packs/Day [...] your housing situation today? I have kelsey sing 07/17/[address] you li [...] Description 08/17/2025 3:00 PM EDT Medication Management [facility] MEDICINE [address] [place] [address] Wendi Hernández, PharmD [address] [place] [address] documented as of this encounter Goals Goal [...] documented as of this encounter Care Teams Barrel Charrer Relationship Specialty Start Date End Date Josep Pascual MD [address] [place] [phone] PCP - General Internal Medicine 07/22/14 documented as of this encounter
--- OUTSIDE RECORDS SUMMARY | 2025-08-01 14:02 | XMS_ITS | Encounter Summary ---
Author Organization [email or web address] Address [address] [place] [address] 7t [place] [address] Care Team Providers Care Supervisor Grower Name Role Phone Josep Pascual MD Primary Care Provide r Encounter Details Date Type Department Care Team (Late st Contact Info) Description 01/08/2023 Orders Only [facility] CHC MED & PEDS [address] [place], [place] [phone] Faviola Edmonds LPN Social History Tobacco Use [...] Description 08/17/2025 3:00 PM EDT Medication Management [facility] MEDICINE [address] [place] [address] Wendi Hernández, PharmD [address] [place] [address] documented as of this encounter Visit Diagnoses Not on filedocumented in this encounter Care Teams Supervisor Grower Relationship Specialty Start Date End Date Josep Pascual MD [address] [place] [address] PCP - General Internal Medicine 07/22/14 documented as of this encounter
[2025-08-01 14:03] LABS: Alanine Aminotransferase 32 U/L (0-40); Albumin Level 4.4 g/dL (3.5-5.0); Alkaline Phosphatase 75 U/L (39-117); Anion Gap 13 (12-20); Aspartate Amino Transferase 34 U/L (5-37); Blood Urea Nitrogen 20 mg/dL (9-16); Calcium 9.5 mg/dL (8.4-10.2); Carbon Dioxide 26 mmol/L (22-29); Chloride 103 mmol/L (96-108); Creatinine Clr Calc Pharmacy 51.4; Estimated Glomerular Filt Rate 57; Magnesium 1.5 mg/dL (1.6-2.6); Potassium 4.6 mmol/L (3.3-5.1); Sodium 137 mmol/L (135-145); Total Protein 7.5 g/dL (6.5-8.0)
[2025-08-01] MEDS: Lactated Ringers 1,000 ML 999 ML IV (14:05)
[2025-08-01 14:06] LABS: IDNOW Serial# 55D5AD1C; Influenza B2 Negative (Negative)
[2025-08-01 14:50] LABS: IDNOW Serial# 08D9AD1C; Strep A Nucleic Acid Negative (Negative)
[2025-08-01 14:59] VITALS: BP 167/75; PULSE 81; RESP 18; TEMP 37.7; O2SAT 94
[2025-08-01] MEDS: Magnesium Sulfate/H2O 2 GM/50 ML PIGGYBACK IV (15:00)
[2025-08-01 15:02] VITALS: TEMP 37.7
[2025-08-01 16:48] VITALS: BP 167/77; PULSE 82; RESP 18; TEMP 37.2; O2SAT 96
[2025-08-01 16:53] VITALS: BP 174/70; PULSE 82; RESP 18; O2SAT 96
[2025-08-01 17:39] VITALS: BP 174/70; PULSE 82; RESP 18; TEMP 36.7; O2SAT 96
[2025-08-03 17:37] LABS: Lyme Abs Screen <0.90 index
[2025-08-04 12:38] LABS: A. Phagocytphilium DNA,RT-PCR NOT DETECTED (NOT DETECTED); Babesia Microti DNA, RT-PCR NOT DETECTED (NOT DETECTED); Borrelia Miyamotoi,DNA RT-PCR NOT DETECTED (NOT DETECTED); E.Chaffeensis DNA RT-PCR NOT DETECTED (NOT DETECTED); Lyme(Borrelia ssp)DNA RT-PCR NOT DETECTED (NOT DETECTED)
== END 2025-08-01 17:40 | disposition home or self-care (01) ==
PROVIDERS: Physician Assistant Medical; Emergency Provider Emergency Medicine; PCP Internal Medicine
DX: U07.1 COVID-19 (principal); E83.42 Hypomagnesemia; J02.9 Acute pharyngitis, unspecified; M79.10 Myalgia, unspecified site; R51.9 Headache, unspecified; R05.9 Cough, unspecified; R11.0 Nausea; R50.9 Fever, unspecified; Z79.899 Other long term (current) drug therapy
CPT/HCPCS: 36415; 71046; 80053; 83605; 83735; 85025; 86308; 86617; 86618; 87040; 87468; 87469; 87478; 87484; 87502; 87635; 87651; 87798; 96360; 96361; 99285; J2543; J3475; J7120

== ENCOUNTER → 2025-08-01 13:21 | Outpatient (BNV) | payer MEDICARE, MEDICAID, SELFPAY | PROVIDERS: Emergency Provider Emergency Medicine; PCP Internal Medicine; Visit Provider Radiology Diagnostic Radiology | DX: R05.9 Cough, unspecified (principal); R50.9 Fever, unspecified | CPT/HCPCS: 71046 ==

== ENCOUNTER 2025-08-11 15:02 | Outpatient (AMB) | payer OTHER, SELFPAY ==
--- NOTE | 2025-08-11 15:45 | A.OFFVIS_ITS ---
Intake Visit Reasons: 3m/PVR/ meds & ED Intake Note: Patient presents today for a 3m follow-up/PVR/ED/Meds Urology Meds- Sildenafil, Tamsulosin, Oxybutynin Allergies to Antibiotic:None Blood Thinner:Aspirin PVR:0ml Learning And Development Assistant Required: Yes Learning And Development Assistant Name: Alexander [phone] Accompanied by: Self / Same As Patient Allergies No Known Allergies Allergy (Verified 08/11/25 20:48) Medication List - Last Reconciled 08/11/25 by LEVI Gambino- amlodipine 5 mg PO BEDTIME aspirin 81 mg PO DAILY atorvastatin 80 mg PO DAILY blood sugar diagnostic (FreeStyle Lite Strips) As directed diclofenac sodium 1% 4 grams topical BID enalapril maleate 5 mg PO DAILY gabapentin 100 mg PO BEDTIME lancets (TRUEplus Lancets) As directed metformin ER 500 mg PO DAILY@1700 metoprolol tartrate 25 mg PO BID mwtdplcc-lny-FD-lycopen-lutein 0.4 mg-300 mcg- 250 mcg (Cerovite Senior) 1 tab PO DAILY omeprazole 20 mg PO DAILY@0630 oxybutynin chloride ER 5 mg PO BEDTIME sildenafil (Viagra) 100 mg PO DAILY PRN tamsulosin 0.4 mg PO DAILY HPI Comments Details: Alan is a 74 year old German speaking patient of Dr. Prieto. He has a past medical history of hypercholesteremia, diabetes, hypertension, and atherosclerotic cardiovascular disease. He presents to the office today for follow-up of his nocturia, urinary urgency, weak urinary stream, and erectile dysfunction. In discussion with the patient today reports compliance with Flomax, oxybutynin, and p.r.n. Viagra as prescribed. He reports no improvement in erectile dysfunction and or urinary symptoms. We did discussed at length potential causes of ED as well as urinary tract symptoms. We discussed further treatment options and risks and benefits of these treatment options. All questions were answered. In review of patient's chart it appears PSAs are as follows: PSA: 01/11 1.4, 08/14 1.7, 04/15 1.9 Previous workup has included a retroperitoneal ultrasound 01/11 bilateral kidneys are normal in size, contour, and echogenicity. 6 mm hyperechoic lesion in the lower pole of the right kidney which could represent an angiolipoma. Enlarged prostate measuring 37 mL. The bladder is well distended and normal. No acute sonographic abnormalities per radiology report. In office urinalysis results reviewed with the patient today. PVR 0ml. PFSH Medical History High cholesterol Diabetes Essential hypertension Atherosclerotic cardiovascular disease Surgical History Stented coronary artery History of cardiac catheterization (~08/19/14) Family History Father No problems noted. Mother No problems noted. Social History Alcohol intake: former Patient Tobacco Use Status: Never used Tobacco service: No Review of Systems Const All systems reviewed & are unremarkable except as noted in HPI and below Physical Exam Const General: cooperative, comfortable, no acute distress, well developed, alert and awake Orientation/consciousness: patient oriented x3 Limitations: language barrier HEENT Head: Yes normal to inspection, Yes normocephalic and Yes atraumatic Ears: hearing grossly normal bilaterally Eyes General: appearance normal, both eyes and all related structures Neck Neck: Yes normal visual inspection and Yes trachea midline Chest Chest palpation & inspection: normal inspection of the chest Resp Effort & Inspection: normal respiratory effort and able to speak in complete sentences Cardio Rate: regular rate GI Inspection: Yes normal to inspection General: Yes no CVA tenderness Back/Spine/Pelvis Back: no CVA tenderness Skin General skin exam: no rashes or lesions noted Neuro General: patient oriented x3 Extrem General: Yes normal to inspection Psych Appearance: grossly normal and well kempt Mental Status: mental status grossly normal Speech and movement: Normal speech and movement present and Clear speech present Affect: Blunted affect present Attitude: Avoids eye contact (attititude/behavior) Thought process: Normal thought process present Thought content: Normal thought content present Insight: Fair insight present (Psych) Judgement: Fair judgement present (Psych) Assessment & Plan Assessment & Plan (1) Nocturia: Code(s): R35.1 - Nocturia Category: Medical (2) BPH loc w urin obs/LUTS: Code(s): N40.1 - Benign prostatic hyperplasia with lower urinary tract symptoms Category: Medical (3) Erectile dysfunction associated with type 2 diabetes mellitus: Code(s): E11.69 - Type 2 diabetes mellitus with other specified complication; N52.1 - Erectile dysfunction due to diseases classified elsewhere Category: Medical Plan In office urinalysis results reviewed with the patient today; as noted above. PVR 0 mL. Stop oxybutynin Start VESIcare as discussed and prescribed. Continue Flomax. Will obtain testosterone and A1c for further assessment evaluation. We did discussed at length potential causes of lower urinary tract symptoms as well as ED; we discussed further treatment options and risks and benefits of these treatment options; this was discussed at length. All questions were answered. We did discussed importance of management and diabetes for improvement lower urinary tract symptoms as well as overall health and well-being. We discussed lifestyle modifications to assist with these urological conditions. Follow-up in 3 months with labs and PVR; or sooner with any issues, concerns, and or questions. Orders: Orders Testosterone, Free/Total Today E11.69 - Type 2 diabetes mellitus with other specified complication, N52.1 - Erectile dysfunction due to diseases classified elsewhere Hemoglobin A1c Today E11.9 - Type 2 diabetes mellitus without complications Medications: New solifenacin (Vesicare) 5 mg PO DAILY 30 tabs 3RF 30 days Discontinued oxybutynin chloride ER take at 9 pm daily Discontinued Reason: Change Referral Type 5 mg PO BEDTIME 90 tabs 3RF Patient Instructions: The patient had an opportunity to ask questions regarding the treatment plan. All questions were answered. Physical exam, labs, and imaging were discussed and reviewed in detail. As well as risks, benefits, and discussion of treatment choices. No major barriers to understanding were identified. The patient expressed understanding and agreement with the above treatment plan. The patient was made aware they should contact our office by phone for worsening of their current condition, the appearance of new symptoms, or with any questions or concerns. Compliance is encouraged with any medications and follow up testing that is ordered. It is a privilege to be allowed the opportunity to participate in? your urological care.? Again, if you have any questions or concerns If you have any questions or concerns please do not hesitate to contact me. The office is [phone]. This note is constructed using voice recognition software. While every effort has been made to ensure accuracy tour bus driver errors may have been included. Yours sincerely, WILI Gambino Coding Level of Care Code Est Pt Level 4 (55273) Complex EM visit Add On G2211 Diagnoses Nocturia R35.1 BPH loc w urin obs/LUTS N40.1 Erectile dysfunction associated with type 2 diabetes mellitus E11.69; N52.1
--- OUTSIDE RECORDS SUMMARY | 2025-08-11 20:17 | XMS_ITS | Encounter Summary ---
Author Organization [employer] Address [address] [place] [address] 7 [place] [address] Care Team Providers Care Mold Technician Name Role Phone Josep Pascual MD Primary Care Provide r Reason for Visit * Reason Onset Date Comments Referral 01/07/2025 Encounter Details Date Type Department Care Team ([facility] st Contact Info) Description 01/07/2025 Telephone [facility] MEDICINE [address] [place], [place] [phone] Josep Pascual MD [address] [place], [place] [phone] Referral Social History Tobacco Use Types Packs/Day [...] info from a referral for orthopedics or size stamper he 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 Pt was frustrated as he couldn't specify correct information . Please return call [phone] documented in this encounter Plan of Treatment Upcoming Encounters Date Type Department Care Team (Late st Contact Info) Description 08/17/2025 3:00 PM EDT Medication Management [facility] MEDICINE [address] [place] [address] Wendi Hernández, Gladis [address] [place] [address] documented as of this encounter Goals Goal [...] documented as of this encounter Care Teams Mold Technician Relationship Specialty Start Date End Date Josep Pascual MD [address] [place] [phone] PCP - General Internal Medicine 07/22/14 documented as of this encounter
--- OUTSIDE RECORDS SUMMARY | 2025-08-11 20:17 | XMS_ITS | Clinical Summary ---
Author Organization [employer] Address [address] [place] [address] [address] [place] [address] Care Team Providers Care Engineering Technical Writer Name Role Phone Josep Pascual MD Primary [...] DAILY 100 each 6 06/20/20 23 Active TRUEplus Lancets 33G miscIndications: Type 2 diabetes mellitus without complications (HCC) USE TO TEST BLOOD SUGAR ONCE A DAY 100 each 5 10/02/20 24 Active glucose blood (FREESTYLE LITE) test stripIndications :Type 2 diabetes mellitus without complications (HCC) USE TO TEST BLOOD SUGAR ONCE A DAY 100 strip 5 10/02/20 24 Active omeprazole (PriLOSEC) [address] capsuleIndicatio ns:Reflux gastritis TAKE 1 CAPSULE BY MOUTH EVERY MORNING BEFORE BREAKFAST 90 capsule 1 02/24/20 25 Active atorvastatin (Lipitor) 80 MG tablet TAKE 1 TABLET BY MOUTH EVERY MORNING 90 tablet 1 02/24/20 25 Active amLODIPine (Norvasc) 5 MG tablet TAKE 1 TABLET BY MOUTH AT BEDTIME 90 tablet 2 03/03/20 25 Active enalapril (Vasotec) 5 MG tabletIndication s:Essential (primary) hypertension Take 1 tablet (5 mg) by mouth Once per day. 30 tablet 6 03/12/20 25 Active metFORMIN XR (Glucophage-XR) 500 MG 24 hr tablet TAKE 1 TABLET BY MOUTH EVERY EVENING WITH FOOD 90 tablet 3 07/02/20 25 Active sildenafil (Viagra) 100 MG tablet TAKE 1 TABLET 1 HOUR BEFORE SEXUAL RELATIONS ONCE DAILY NEEDED. 10 tablet 07/14/20 25 Active gabapentin (Neurontin) 100 MG capsuleIndicatio ns:Pain TAKE 1 CAPSULE BY MOUTH AT BEDTIME 30 capsule 08/04/20 25 Active Multiple Vitamins-Mineral s (Cerovite Senior) tablet Take 1 tablet by mouth in the morning. 90 tablet 3 08/06/20 25 Active Multiple Vitamins-Mineral s (Cerovite Senior) tablet TAKE 1 TABLET BY MOUTH EVERY MORNING 90 tablet 3 07/21/20 24 025 Discontinued(R eorder (will not trigger notification to Pharmacy)) sildenafil (Viagra) 100 MG tablet TAKE 1 TABLET 1 HOUR BEFORE SEXUAL RELATIONS ONCE DAILY NEEDED. 10 tablet 06/04/20 25 025 Discontinued gabapentin (Neurontin) 100 MG capsuleIndicatio ns:Pain TAKE 1 CAPSULE BY MOUTH AT BEDTIME 30 capsule 07/09/20 25 025 Discontinued Active Problems Problem Noted [...] Urology , last note 11/2022 PSA normal 3/2/23: 1.42 Preventative health care 07/17/2024 Assessment & [...] kidney disease (CKD) , stage III (moderate) (CMS/[facility]) 10/08/2012 Assessment & Plan (03/12/2025 2:46 PM [...] Encounters Date Type Department Care Team Description 08/05/2025 Refill [facility] MEDICINE [address] [place] [address] oJsep Pascual MD 08/05/2025 Refill [facility] MEDICINE [address] [place] [address] Josep Pascual MD 08/04/2025 Refill [facility] [address], [place] [address] Josep Pascual MD Pain 08/01/2025 Orders Only GENERIC EXTERNAL DATA DEPARTMENT Provider, Generic External Data 07/13/2025 Refill [facility] [address], [place] [address] Kait Child, ANP 07/09/2025 Refill [facility] [address], [place] [address] Josep Pascual MD Pain 07/07/2025 Refill [facility] [address], [place] [address] Linda Reed MD Pain 07/02/2025 Refill [facility] [address], [place] [address] Josep Pascual MD 06/10/2025 Refill [facility] [address], [place] [address] Josep Pascual MD Pain 06/02/2025 Refill [facility] [address], [place] [address] Josep Pascual MD 05/25/2025 Telephone [facility] [address], [place] [address] Josep Pascual MD Lab Orders 05/14/2025 Refill [facility] [address], [place] [address] Josep Pascual MD Pain from Last 3 Months Immunizations Immunization Administration [...] Description 08/17/2025 3:00 PM EDT Medication Management [facility] MEDICINE [address] [place] [address] Wendi Hernández, PharmD [address] [place] [address] Health Maintenance Due Date Last Done Comments [...] 144/75(2024 4:44 PM EDT) No Shoaib Gonzalez, Gladis Procedures Procedure Name Priority Date/Time Associated Diagnosis Comments XR CHEST 2 VIEWS Routine 08/01/2025 3:35 PM EDT BLOOD CULTURE (SECOND) Routine 2:02 PM EDT BLOOD CULTURE (FIRST) Routine 08/01/2025 2:01 PM EDT STREP A NUCLEIC ACID Routine 08/01/2025 2:01 PM EDT TICK BORNE DISEASE BY PCR Routine 08/01/2025 2:00 PM EDT LYME DISEASE AB W/REFL TO BLOT (IGG, IGM) Routine 08/01/2025 2:00 PM EDT MONONUCLEOSIS TEST, QUALITATIVE Routine 08/01/2025 2:00 PM EDT LACTIC ACID Routine 08/01/2025 2:00 PM EDT MAGNESIUM Routine 08/01/2025 1:42 PM EDT COMPREHENSIVE METABOLIC PANEL Routine 08/01/2025 1:42 PM EDT COVID-19 ID NOW (HACKETT) Routine 08/01/2025 1:42 PM EDT CBC WITH AUTO DIFFERENTIAL Routine 08/01/2025 1:42 PM EDT INFLUENZA A B2 ID NOW (HACKETT) Routine 08/01/2025 1:42 PM EDT POCT GLYCATED HEMOGLOBIN, TOTAL Routine 03/30/2025 6:10 PM EDT Impaired fasting glucose LIPID PANEL, STANDARD Routine 08/06/2024 9:50 AM EDT Hypertriglyceridem ia ZZZ HISTORICAL HEPATITIS C AB W/REFL TO HCV RNA, QN, PCR Routine 01/25/2022 8:52 AM EDT ALBUMIN, RANDOM URINE W/CREATININE Routine 01/25/2022 8:52 AM EDT HM COLONOSCOPY Routine 09/06/2015 4:31 PM EST from Last 3 Months or Most Recently Relevant to Health Maintenance Results * XR Chest 2 Views (08/01/2025 3:35 PM EDT) Anatomical Region Laterality Modality Chest Radiographic Soumya ging 08/01/2025 3:35 PM EDT Narrative 08/01/2025 3:37 PM EDT [place] [address] XRay Report Signed Patient: Alan Aguilera MR#: [id number] [birth year] : 1950 Acct:[id number] Age/Sex: 74 / M ADM Date: 08/01/25 Loc: HO.ED Attending Dr: Ordering Physician: Mirian Sullivan Date of Service: 08/01/25 Procedure(s): XR chest 2V Accession Number(s): [id number] cc: Josep Prieto MD; Mirian Sullivan Reason for Exam: cough, fever CLINICAL HISTORY: cough, fever 2 view chest x-ray Comparison: CR - XR CHEST 1V - 04/09/25 17:31 EDT CR/SR - XR CHEST 2 VIEWS - 08/21/24 10:31 EDT Findings: No consolidation or effusion. Heart size is normal. No acute fracture. IMPRESSION: 1. No acute findings. This document has been electronically signed by: Salima Kumar MD on 08/01/2025 15:35:56 Dictated By: Salima Kumar MD Signed By: <Electronically signed by Salima Kumar MD in OV> 08/01/25 1537 DD/ 1535 TD/TT: 08/01/251534 Laundry Attendant: Procedure Note Joseotparmjitcarter, Image - 08/01/[address] [address] XRay Report Signed Patient: Alan Aguilera MMR#: [id number] [birth year] : 9Acct:[id number] Age/Sex: 74 / MADM Date: 08/01/25 Loc: .ED Attending Dr: Ordering Physician: Mirian Sullivan Date of Service: 08/01/25 Procedure(s): XR chest 2V Accession Number(s): [id number] cc: Josep Prieto MD; Mirian Sullivan Reason for Exam: cough, fever CLINICAL HISTORY: cough, fever 2 view chest x-ray Comparison: CR - XR CHEST 1V - 04/09/25 17:31 EDT CR/SR - XR CHEST 2 VIEWS - 08/21/24 10:31 EDT Findings: No consolidation or effusion. Heart size is normal. No acute fracture. IMPRESSION: 1. No acute findings. This document has been electronically signed by: Salima Kumar MD on 08/01/2025 15:35:56 Dictated By: Salima Kumar MD Signed By: <Electronically signed by Salima Kumar MD in OV> 08/01/25 1537 DD/ 153 TD/TT: 08/01/251534 Laundry Attendant: [facility] External Provider IMG XR PROCEDURES Final Result * Blood Culture (Second) (08/01/2025 2:02 PM EDT) Blood Venous blood specimen / Unknown 08/01/2025 2:02 PM EDT 08/01/2025 2:44 PM EDT Comment:Blood Narrative [facility] - 08/06/2025 4:44 PM EDT Blood Culture (Second) No growth after 5 days. Specimen Source: Blood Generic External Data Provider LAB MICROBIOLOGY - GENERAL ORDERABLES Final Result Performing Organization Address [facility]/ZIP Co de Phone Number [facility] [address] [place] [phone] * Blood Culture (First) (08/01/2025 2:01 PM EDT) Blood Venous blood specimen / Unknown 08/01/2025 2:01 PM EDT 08/01/2025 2:39 PM EDT Comment:Blood Narrative [facility] - 08/06/2025 4:39 PM EDT Blood Culture (First) No growth after 5 days. Specimen Source: Blood Generic External Data Provider LAB MICROBIOLOGY - GENERAL ORDERABLES Final Result Performing Organization Address [facility] de Phone Number [facility] [address] [place] [phone] * Strep A Nucleic Acid (08/01/2025 2:01 PM EDT) IDNOW SERIAL# [id number] [facility] Strep A Nucleic Acid Negative Negative [facility] Comment:All test results mus t be correlated with clinical findings.This test has not been evaluated for monitoring treatment ofinfection.Additional follow-up testing using the culture method isrequired if the result is negative and clinical symptomspersist, or in the event of an acute rheumatic feveroutbreak. 08/01/2025 2:01 PM EDT 08/01/2025 2:22 PM EDT Generic External Data Provider LAB MICROBIOLOGY - GENERAL ORDERABLES Final Result Performing Organization Address [facility] Co de Phone Number [facility] [address] [place] [phone] * Tick-borne Disease, Acute Molecular Panel (08/01/2025 2:00 PM EDT) Babesia microti DNA, Real Time PCR NOT DETECTED NOT DETECTED [facility] Comment:This test was develo ped and its analytical performancecharacteristics have been determined by [employer]. It has not been cleared or approved by theFDA. This assay has been validated pursuant to the CLIAregulations and is used for clinical purposes.THIS TEST WAS PERFORMED AT:[email or web address] [address] [phone] CROWE MD Ehrlichia chaffensis DNA Real Time PCR NOT DETECTED NOT DETECTED [facility] Comment:This test was develo ped and its analytical performancecharacteristics have been determined by [employer]. It has not been cleared or approved by theFDA. This assay has been validated pursuant to the CLIAregulations and is used for clinical purposes.THIS TEST WAS PERFORMED AT:[email or web address] [address] [phone] CROWE MD Anaplasma phagocytophilum DNA, QL Real Time PCR NOT DETECTED NOT DETECTED [facility] Comment:This test was develo ped and its analytical performancecharacteristics have been determined by [employer]. It has not been cleared or approved by theFDA. This assay has been validated pursuant to the CLIAregulations and is used for clinical purposes. Borrelia Species DNA, Ql Real Time PCR NOT DETECTED NOT DETECTED [facility] Comment:This test was develo ped and its analytical performancecharacteristics have been determined by [employer]. It has not been cleared or approved by theFDA. This assay has been validated pursuant to the CLIAregulations and is used for clinical purposes.For additional information, please refer totps://education.DAVIDsTEA.Waffl.com/faq/rqm438(This link is being provided for informational/educational purposes only.)THIS TEST WAS PERFORMED AT:[email or web address] [address] [phone] CROWE MD Borrelia Miyamotoi DNA, Ql Real Time PCR NOT DETECTED NOT DETECTED [facility] Comment:This test was develo ped and its analytical performancecharacteristics have been determined by [employer]. It has not been cleared or approved by theFDA. This assay has been validated pursuant to the CLIAregulations and is used for clinical purposes.THIS TEST WAS PERFORMED AT:[email or web address] [address] [phone] CROWE MD Comment SEE NOTE [facility] Comment:A negative result do es not exclude Borrelia infectionas the concentration of the organism in blood may be lowor non-existent in patients with Lyme disease, and maydepend on timing of specimen collection from onset ofsymptoms. Clinical correlation is recommended andadditional studies such as serologic testing may beindicated.THIS TEST WAS PERFORMED AT:[email or web address] [address] [phone] CROWE MD 08/01/2025 2:00 PM EDT 08/01/2025 2:21 PM EDT us Generic External Data Provider LAB BLOOD ORDERAB LES Final Result [facility] [address] [place] [phone] * Lyme Disease Ab with Reflex to Blot (IgG, IgM) (08/01/2025 2:00 PM EDT) Lyme Antibody Screen <0.90 index [facility] Comment:Index Interpretation ----- < 0.90 Negative 0.90-1.09 Equivocal > 1.09 PositiveAs recommended by the Food and Drug Administration(FDA), all samples with positive or equivocalresults in a Borrelia burgdorferi antibody screenwill be tested using a blot method. Positive orequivocal screening test results should not beinterpreted as truly positive until verified as suchusing a supplemental assay (e.g., B. burgdorferi blot).The screening test and/or blot for B. burgdorferiantibodies may be falsely negative in early stagesof Lyme disease, including the period when erythemamigrans is apparent.THIS TEST WAS PERFORMED AT:[employer] [place] [phone] CROWE MD Lyme Blot TNP [facility] 08/01/2025 2:00 PM EDT 08/01/2025 2:21 PM EDT us Generic External Data Provider LAB BLOOD ORDERAB LES Final Result Performing Organization Address [facility]/ZIP Co de Phone Number [facility] [address] [place] [address] [phone] * Mononucleosis Test, Qualitative (08/01/2025 2:00 PM EDT) Monotest Negative Negative [facility] 08/01/2025 2:00 PM EDT 08/01/2025 2:20 PM EDT Generic External Data Provider LAB BLOOD ORDERAB LES Final Result Performing Organization Address [facility] Co de Phone Number [facility] [address] [place] [phone] * Lactic Acid (08/01/2025 2:00 PM EDT) [facility] Lactic Acid 2.0 0.5 - 2.0 mmol/L [facility] 08/01/2025 2:00 PM EDT 08/01/2025 2:20 PM EDT Generic External Data Provider LAB BLOOD ORDERAB LES Final Result Performing Organization Address [facility] Co de Phone Number [facility] [address] [place] [phone] * Influenza A B2 ID NOW (Hackett) (08/01/2025 1:42 PM EDT) IDNOW SERIAL# [id number] [facility] Influenza A Negative Negative [facility] Influenza B2 Negative Negative [facility] Influenza A B2 Note See Note [facility] Comment:The Hackett ID NOW In fluenza A B2 test is used for thequalitative detection of influenza A and B from patientswith signs and symptoms of respiratory infection.Negative results do not preclude influenza virus infectionand should not be used as the sole basis for diagnosis,treatment or other patient management decisions.There is a risk of false negative results due to thepresence of variants in the viral targets of the assay, lowlevels of virus in the specimen and co- infection withRespiratory Syncytial Virus. 08/01/2025 1:42 PM EDT 08/01/2025 1:48 PM EDT us Generic External Data Provider LAB MICROBIOLOGY - GENERAL ORDERABLES Final Result [facility] [address] [place] [phone] * (ABNORMAL) COVID-19 ID NOW (HACKETT) (08/01/2025 1:42 PM EDT) IDNOW SERIAL# [id number] [facility] COVID-19 TEST Positive (A) Negative [facility] COVID-19 NOTE See Note [facility] Comment: Results are for the identification of SARS-CoV2 RNA. TheSARS-CoV2 RNA is generally detectable in respiratory samplesduring the acute phase of infection. Positive results areindicative of the presence of SARS-CoV-2 RNA; clinicalcorrelation with patient history and other diagnosticinformation is necessary to determine patient infectionstatus. Positive results do not rule out bacterial infectionor co- infection with other viruses.Testing facilities within the [facility] and [facility] are required to report all [...] use by authorized laboratories.Testing performed on the [employer] ID NOW utilizing NAAT. 08/01/2025 1:42 PM EDT 08/01/2025 1:48 PM EDT us Generic External Data Provider LAB MOLECULAR SAJI GNOSTICS ORDERABLES Final Result [facility] [address], [place] [phone] * (ABNORMAL) CBC auto differential (08/01/2025 1:42 PM EDT) White Blood Count 7.4 4.8 - 10.8 X10*3/uL [facility] Red Blood Count 3.85(L) 4.60 - 5.80 X10*6/uL [facility] Hemoglobin 11.8(L) 14.0 - 18.0 g/dl [facility] Hematocrit 36.2(L) 42.0 - 52.0 % [facility] Mean Corpuscular Volume 94.0 80.0 - 98.0 fL [facility] Mean Corpuscular Hemoglobin 30.6 27.0 - 33.0 pg [facility] Mean Corpuscular HGB Conc 32.6 31.0 - 36.0 g/dl [facility] Red Cell Distribution Width 12.1 11.0 - 16.0 % [facility] Platelet Count 242 160 - 400 X10*3/uL [facility] Mean Platelet Volume 9.6 9.4 - 12.4 fL [facility] Neutrophils Percent Auto 74.7(H) 45 - 73 % [facility] Imm Gran Pct Auto 0.3 0.0 - 0.4 % [facility] Lymphocytes Percent Auto 14.4(L) 20 - 40 % [facility] Monocytes Percent Auto 8.9 2 - 11 % [facility] Eosinophils Percent Auto 1.2 0 - 4 % [facility] Basophils Percent Auto 0.5 0 - 2 % [facility] NRBC Pct Auto 0.0 0.0 - 0.2 /100WBC [facility] Neutrophils Absolute Auto 5.5 2.0 - 8.3 x10*3/uL [facility] Imm Gran Abs Auto 0.02 0.00 - 0.03 X10*3/uL [facility] Lymphocytes Absolute Auto 1.1(L) 1.2 - 4.9 X10*3/uL [facility] Monocytes Absolute Auto 0.7 0.1 - 1.2 X10*3/uL [facility] Eosinophils Absolute Auto 0.1 0.0 - 0.4 X10*3/uL [facility] Basophils Absolute Auto 0.0 0.0 - 0.2 X10*3/uL [facility] NRBC Abs Auto 0.000 0.0 - 0.012 X10*3/uL [facility] 08/01/2025 1:42 PM EDT 08/01/2025 1:48 PM EDT Generic External Data Provider LAB BLOOD ORDERAB LES Final Result Performing Organization Address [facility]/ZIP Co de Phone Number [facility] [address] [place] [phone] * (ABNORMAL) Magnesium (08/01/2025 1:42 PM EDT) Pathologist [facility] Magnesium 1.5(L) 1.6 - 2.6 mg/dL [facility] 08/01/2025 1:42 PM EDT 08/01/2025 1:48 PM EDT Generic External Data Provider LAB BLOOD ORDERAB LES Final Result Performing Organization Address [facility]/ZIP Co de Phone Number [facility] [address] [place] [phone] * (ABNORMAL) Comprehensive Metabolic Panel (08/01/2025 1:42 PM EDT) Sodium 137 135 - 145 mmol/L [facility] Potassium 4.6 3.3 - 5.1 mmol/L [facility] Chloride 103 96 - 108 mmol/L [facility] Carbon Dioxide 26 22 - 29 mmol/L [facility] Anion Gap 13 12 - 20 [facility] Urea Nitrogen (BUN) 20(H) 9 - 16 mg/dL [facility] Creatinine, Serum 1.24 0.5 - 1.4 mg/dL [facility] Creatinine Clr Calc Pharmacy 51.4 [facility] Comment:eGFR (calculated fro m the MDRD study equation) and eCrCl(calculated from the Cockcroft-Gault equation) are based ondifferent parameters and may not yield comparable results.If eCrCl result is absurd, please check patient'sheight/weight. Estimated Glomerular Filt Rate 57 [facility] Comment:Chronic Kidney Disea se: Estimated GFR < 60 mL/min/1.21b7Ccdcfh Kidney Disease: Estimated GFR < 15 mL/min/1.73m2 Glucose 145(H) 60 - 115 mg/dL [facility] Calcium 9.5 8.4 - 10.2 mg/dL [facility] Bilirubin, Total 1.5(H) 0.0 - 1.0 mg/dL [facility] Aspartate Amino Transferase 34 5 - 37 U/L [facility] Alanine Aminotransferase 32 0 - 40 U/L [facility] Total Protein 7.5 6.5 - 8.0 g/dL [facility] Albumin Level 4.4 3.5 - 5.0 g/dL [facility] Alkaline Phosphatase 75 39 - 117 U/L [facility] 08/01/2025 1:42 PM EDT 08/01/2025 1:48 PM EDT us Generic External Data Provider LAB BLOOD ORDERAB LES Final Result [facility] [address] [place] [phone] * POCT HGB A1C (03/30/2025 6:10 PM EDT) Hemoglobin A1C 5.2 4.0 - 6.0 % QC Media Lot # [id number] Lot# Expiration Date Blood 03/30/2025 6:10 PM EDT Jose A Ko MD POINT OF CARE TEST ENTER/EDIT ORDERABLES Final Result * (ABNORMAL) Lipid Panel, Standard (08/06/2024 9:50 AM EDT) [facility] Triglycerides 159(H) <150 mg/dL [facility] Comment:Desirable Triglyceri de: less than 150 mg/dLBorderline High Triglyceride 150-199 mg/dLHigh Triglyceride: 200-499 mg/dLVery High Triglyceride: greater than or equal to 5OO mg/dL Cholesterol 136 <200 mg/dL [facility] Comment:Desirable Cholestero l: less than 200 mg/dLBorderline High Cholesterol: 200-239 mg/dLHigh Cholesterol: greater than 239 mg/dL LDL Cholesterol Calculated 67 <100 mg/dL [facility] Comment:Desirable LDL: less than 100 mg/dLNear Optimal/Above Optimal LDL: 110- 129 mg/dLBorderline High LDL: 130-159 mg/dLHigh LDL: 160-189 mg/dLVery High LDL: greater than or equal to 190 mg/dL HDL Cholesterol 38(L) >40 mg/dL [facility] Comment:Desirable HDL: great er than 40 mg/dL Note: This HDL assay may give artificially low results in patients with liver disease. Blood Venous blood specimen / Unknown 08/06/2024 9:50 AM EDT 08/06/2024 11:37 AM EDT us Josep Agarwal MD LAB BLOOD ORDERABLES Final Result [facility] [address] [place] [phone] * HEPATITIS C AB W/REFL TO HCV RNA, QN, PCR (01/25/2022 8:52 AM EDT) [facility] HEPATITIS C ANTIBODY NON-REACT [facility] NON-REACT [facility] INDEX 0.01 <1.00 [facility] Comment: HCV antibody was non-reactive. There is no laboratory evidence of HCV infection. In most cases, no further action is required. However, if recent HCV exposure is suspected, a test for HCV RNA (test code 10403) is suggested. For additional information please refer to http://education.Kitani/faq/FYZ53k9 (This link is being provided for informational/ educational purposes only.) 01/25/2022 8:52 AM EDT Josep Agarwal MD HISTORICAL/NON ORDERA BLE LABS Final Result Performing Organization Address [facility] Phone Number [facility] [address] [place] [address], * (ABNORMAL) ALBUMIN, RANDOM URINE W/CREATININE (01/25/2022 8:52 AM EDT) Pathologist [facility] Microalbumin Urine 13.2 See Note: mg/dL [facility] Comment: Reference Range: Reference Range [...] Creatinine, Urine 289 20 - 320 mg/dL [facility] 01/25/2022 8:52 AM EDT Josep Agarwal MD LAB URINE ORDERABLES Final Result Performing Organization Address [facility] de Phone Number [facility] [address] [place] [address], * Hm Colonoscopy (09/06/2015 4:31 PM EST) Historical Provider HEALTH MAINTENANCE Final Result from Last 3 Months or Most Recently Relevant to Health Maintenance Care Teams Engineering Technical Writer Relationship Specialty Start Date End Date Josep Pascual MD [address] [place] [address] PCP - General Internal Medicine 07/22/14
--- OUTSIDE RECORDS SUMMARY | 2025-08-11 20:17 | XMS_ITS | Encounter Summary ---
Author Organization [employer] Address [address] [place] [address] 7t [place] [address] Care Team Providers Care System Sales Consultant Name Role Phone Josep Pascual MD Primary Care Provide r Encounter Details Date Type Department Care Team (Late st Contact Info) Description 08/06/2023 Telephone [facility]INE [address] [place] [address] [phone] Josep Pascual MD [address] [place] [address] [phone] Social History Tobacco Use Types Packs/Day Years [...] Description 08/17/2025 3:00 PM EDT Medication Management [facility] [address] [place] [address] Wendi Hernández, PharmD 230 [place] [address] documented as of this encounter Visit Diagnoses Not on filedocumented in this encounter Care Teams System Sales Consultant Relationship Specialty Start Date End Date Josep Pascual MD 230 [place] [address] PCP - General Internal Medicine 07/22/14 documented as of this encounter
--- OUTSIDE RECORDS SUMMARY | 2025-08-11 20:17 | XMS_ITS | Encounter Summary ---
Author Organization [employer] Address [address] [place] [address] 7t [place] [address] Care Team Providers Care Music Sound Light Technician Name Role Phone Josep Pascual MD Primary Care Provide r Encounter Details Date Type Department Care Team (Late st Contact Info) Description 03/01/2023 Abstract [facility] [address] [place] [address] [phone] Josep Pascual MD 230 [place], [place] [phone] Social History Tobacco Use Types Packs/Day Years [...] Description 08/17/2025 3:00 PM EDT Medication Management [facility] 230 [place] [address] Wendi Hernández, PharmD 230 [place] [address] documented as of this encounter Visit Diagnoses Not on filedocumented in this encounter Care Teams Music Sound Light Technician Relationship Specialty Start Date End Date Josep Pascual MD [address] [place] [address] PCP - General Internal Medicine 07/22/14 documented as of this encounter
--- OUTSIDE RECORDS SUMMARY | 2025-08-11 20:17 | XMS_ITS | Encounter Summary ---
Author Organization [employer] Address [address] [facility] 7t [place] [address] Care Team Providers Care Structural Layout Worker Name Role Phone Josep Pascual MD Primary Care Provide r Encounter Details Date Type Department Care Team (Late st Contact Info) Description 07/09/2025 Refill [facility] MED[facility]INE 230 [place], [place] [phone] Josep Pascual MD 230 [place], [place] [phone] Pain Social History Tobacco Use Types Packs/Day [...] Description 08/17/2025 3:00 PM EDT Medication Management [facility] MED[facility]INE 230 [place] [address] Wendi Hernández, PharmD 230 [place] [address] documented as of this encounter Goals Goal [...] documented as of this encounter Care Teams Structural Layout Worker Relationship Specialty Start Date End Date Josep Pascual MD 230 [place] [address] PCP - General Internal Medicine 07/22/14 documented as of this encounter
--- OUTSIDE RECORDS SUMMARY | 2025-08-11 20:17 | XMS_ITS | Encounter Summary ---
Author Organization [employer] Address [address] [place] [address] 7t [place] [address] Care Team Providers Care Bottom Wheeler Name Role Phone Josep Pascual MD Primary Care Provide r Reason for Visit * Reason Comments Med Refill Encounter Details Date Type Department Care Team ([facility] st Contact Info) Description 11/03/2024 Refill [facility] MED[facility]INE 230 [place], [place] [phone] Lillian Gonzalez MD 230 [place], [place] [phone] Pain Social History Tobacco Use Types Packs/Day [...] Description 08/17/2025 3:00 PM EDT Medication Management [facility] 230 [place] [address] Wendi Hernández, PharmD 230 [place] [address] documented as of this encounter Goals Goal [...] documented as of this encounter Care Teams Bottom Wheeler Relationship Specialty Start Date End Date Josep Pascual MD [address] [place] [address] PCP - General Internal Medicine 07/22/14 documented as of this encounter
--- OUTSIDE RECORDS SUMMARY | 2025-08-11 20:17 | XMS_ITS | Encounter Summary ---
Author Organization [employer] Address [address] [place] [address] 7t [place] [address] Care Team Providers Care Binding Bench Worker Name Role Phone Josep Pascual MD Primary Care Provide r Reason for Visit * Reason Comments Med Refill Encounter Details Date Type Department Care Team ([facility] st Contact Info) Description 08/05/2025 Refill [facility] MED[facility]INE 230 [place], [place] [phone] Josep Pascual MD 230 [place], [place] [phone] Social History Tobacco Use Types Packs/Day Years [...] Description 08/17/2025 3:00 PM EDT Medication Management [facility] MED[facility]INE [address] [place] [address] Wendi Hernández, PharmD 230 [place] [address] documented as of this encounter Goals Goal [...] documented as of this encounter Care Teams Binding Bench Worker Relationship Specialty Start Date End Date Josep Pascual MD 230 [place] [address] PCP - General Internal Medicine 07/22/14 documented as of this encounter
--- OUTSIDE RECORDS SUMMARY | 2025-08-11 20:17 | XMS_ITS | Encounter Summary ---
Author Organization [employer] Address [address] [place] [address] 7t [place] [address] Care Team Providers Care Quarrying Specialist Name Role Phone Josep Pascual MD Primary Care Provide r Reason for Visit * Reason Comments Med Refill Encounter Details Date Type Department Care Team (Late st Contact Info) Description 05/22/2024 Refill [facility] MEDICINE 230 [place], [place] [phone] Josep Pascual MD 230 [place] [address] Pain Social History Tobacco Use Types Packs/Day [...] Description 08/17/2025 3:00 PM EDT Medication Management [facility]INE 230 [place] [address] Wendi Hernández, PharmD 230 [place] [address] documented as of this encounter Goals Goal Patient Goal Type Associated Problems Recent Progress Patient-Stated? Author Blood Pressure < 140/90 Blood Pressure Essential (primary) hypertension 144/75(2024 4:44 PM EDT) No Shoaib Gonzalez, PharmD documented as of this encounter Visit Diagnoses Diagnosis Pain Generalized pain documented in this encounter Care Teams Quarrying Specialist Relationship Specialty Start Date End Date Josep Pascual MD 230 [place] [address] PCP - General Internal Medicine 07/22/14 documented as of this encounter
--- OUTSIDE RECORDS SUMMARY | 2025-08-11 20:17 | XMS_ITS | Encounter Summary ---
Author Organization [employer] Address [address] [place] [address] 7t [place] [address] Care Team Providers Care Bilingual Operator Name Role Phone Josep Pascual MD Primary Care Provide r Encounter Details Date Type Department Care Team (Late st Contact Info) Description 02/17/2024 Orders Only [facility] MEDICINE [address] [place] [phone] Provider, MD Cari Social History Tobacco Use [...] Description 08/17/2025 3:00 PM EDT Medication Management [facility] MEDICINE [address] [place] [address] Wendi Hernández PharmD 230 [place] [address] documented as of this encounter Goals Goal [...] on filedocumented in this encounter Care Teams Bilingual Operator Relationship Specialty Start Date End Date Josep Pascual MD [address] [place] [address] PCP - General Internal Medicine 07/22/14 documented as of this encounter
--- OUTSIDE RECORDS SUMMARY | 2025-08-11 20:17 | XMS_ITS | Encounter Summary ---
Author Organization [employer] Address [address] [place] [address] 7t [place] [address] Care Team Providers Care Head Machine Feeder Name Role Phone Josep Pascual MD Primary Care Provide r Encounter Details Date Type Department Care Team (Late st Contact Info) Description 01/08/2023 Orders Only [facility] MED & PEDS [address] [place], [place] [phone] Faviola Edmonds LPN Social History Tobacco Use [...] Description 08/17/2025 3:00 PM EDT Medication Management [facility] MEDICINE 230 [place] [address] Wendi Hernández, PharmD 230 [place] [address] documented as of this encounter Visit Diagnoses Not on filedocumented in this encounter Care Teams Head Machine Feeder Relationship Specialty Start Date End Date Josep Pascual MD 230 [place] [address] PCP - General Internal Medicine 07/22/14 documented as of this encounter
--- OUTSIDE RECORDS SUMMARY | 2025-08-11 20:17 | XMS_ITS | Clinical Summary ---
Author Organization [address] [place] [address] Address [address] [place] [address] Phone Care Team Providers Care Search Analyst Name Role Phone Josep Prieto MD Primary [...] Date Diagnosed Date Plantar fasciitis, bilateral 05/02/2024 Social History Tobacco Use Types Packs/Day Years [...] 2024 Depression Screening 10/22/2024 COVID-19 Vaccine ( season) 2025 11/07/2022, 09/22/2021, [...] patient's age to complete this topic Insurance MEDICARE MEDICAID - [place] Care Teams Search Analyst Relationship Specialty Start Date End Date Josep Prieto MD [address] [place] [address] [place] [address] PCP - General 08/10/14
--- OUTSIDE RECORDS SUMMARY | 2025-08-11 20:17 | XMS_ITS | Encounter Summary ---
Author Organization [email or web address] Address [address] [facility] 7t [place] [address] Care Team Providers Care Director Strategy Name Role Phone Josep Pascual MD Primary Care Provide r Encounter Details Date Type Department Care Team (Late st Contact Info) Description 08/05/2025 Refill [facility] 230 [place], [place] [phone] Josep Pascual MD 230 [place], [place] [phone] Social History Tobacco Use Types Packs/Day Years [...] encounter Miscellaneous Notes * Telephone Encounter - Samy Samuesl - 08/05/2025 5:18 PM EDT Refills required for patients John Toney documented in this encounter Plan of Treatment Upcoming Encounters Date Type Department Care Team (Late st Contact Info) Description 08/17/2025 3:00 PM EDT Medication Management [facility] 230 [place] [address] Wendi Hernández, Gladis 230 [place] [address] documented as of this encounter Goals Goal [...] documented as of this encounter Care Teams Director Strategy Relationship Specialty Start Date End Date Josep Pascual MD 230 [place] [address] PCP - General Internal Medicine 07/22/14 documented as of this encounter
--- OUTSIDE RECORDS SUMMARY | 2025-08-11 20:17 | XMS_ITS | Encounter Summary ---
Author Organization [employer] Address [address] [place] [address] 7t [place] [address] Care Team Providers Care Electronic Gluing Machine Operator Name Role Phone Josep Pasucal MD Primary Care Provide r Encounter Details Date Type Department Care Team ([facility] Contact Info) Description 11/07/2022 Orders Only [facility] MED [facility] PEDS [address] [place], [place] [phone] Faviola Edmonds LPN Social History Tobacco Use [...] Description 08/17/2025 3:00 PM EDT Medication Management [facility]INE 230 [place], [place] [phone] Wendi Hernández, PharmD 230 [place] [address] documented as of this encounter Visit Diagnoses Not on filedocumented in this encounter Care Teams Electronic Gluing Machine Operator Relationship Specialty Start Date End Date Josep Pascual MD 230 [place] [address] PCP - General Internal Medicine 07/22/14 documented as of this encounter
--- OUTSIDE RECORDS SUMMARY | 2025-08-11 20:17 | XMS_ITS | Encounter Summary ---
Author Organization [employer] Address [address] [place] [address] 7t [place] [address] Care Team Providers Care Farmer Vegetable Name Role Phone Josep Pascual MD Primary Care Provide r Encounter Details Date Type Department Care Team ([facility] Contact Info) Description 11/27/2022 Orders Only [facility] MED & PEDS [address] [place], [place] [phone] Faviola Edmonds LPN Social History Tobacco Use [...] Description 08/17/2025 3:00 PM EDT Medication Management [facility] MEDICINE 230 [place], [place] [phone] Wendi Hernández, PharmD 230 [place] [address] documented as of this encounter Visit Diagnoses Not on filedocumented in this encounter Care Teams Farmer Vegetable Relationship Specialty Start Date End Date Josep Pascual MD [address] [place] [address] PCP - General Internal Medicine 07/22/14 documented as of this encounter
== END 2025-08-11 16:45 | disposition home or self-care (01) ==
LOC: HO.HUSH 15:04
PROVIDERS: PCP Internal Medicine; Visit Provider Nurse Practitioner Family
DX: N40.1 Benign prostatic hyperplasia with lower urinary tract symptoms (principal); R35.1 Nocturia; E11.69 Type 2 diabetes mellitus with other specified complication; N52.1 Erectile dysfunction due to diseases classified elsewhere
CPT/HCPCS: 99214; G2211

== ENCOUNTER → 2025-08-11 15:02 | Outpatient (BNVA) | payer OTHER, SELFPAY | PROVIDERS: PCP Internal Medicine; Visit Provider Nurse Practitioner Family | DX: R35.1 Nocturia (principal); N40.1 Benign prostatic hyperplasia with lower urinary tract symptoms; E11.69 Type 2 diabetes mellitus with other specified complication; N52.1 Erectile dysfunction due to diseases classified elsewhere | CPT/HCPCS: 51798; 99212 ==

== ENCOUNTER → 2025-08-12 08:46 | Outpatient (BNV) | payer OTHER, SELFPAY | PROVIDERS: PCP Internal Medicine; Visit Provider Nurse Practitioner Family | DX: Z13.9 Encounter for screening, unspecified (principal) | CPT/HCPCS: 81003 ==

== ENCOUNTER 2025-08-14 09:56 | Outpatient (REF) | payer OTHER, SELFPAY ==
--- OUTSIDE RECORDS SUMMARY | 2025-08-14 11:15 | XMS_ITS | Encounter Summary ---
Author Organization [employer] Address [address] [facility] 7t [place] [address] Care Team Providers Care Services Rep Name Role Phone Josep Pascual MD Primary Care Provide r Encounter Details Date Type Department Care Team (Late st Contact Info) Description 07/09/2025 Refill [facility] MEDICINE 230 [place], [place] [phone] Josep Pascual MD 230 [place], [place] [phone] Pain Social History Tobacco Use Types Packs/Day [...] Description 08/17/2025 3:00 PM EDT Medication Management [facility] MEDICINE 230 [place] [address] Wendi Hernández, PharmD [address] [place] [address] documented as of this encounter Goals Goal [...] documented as of this encounter Care Teams Services Rep Relationship Specialty Start Date End Date Josep Pascual MD [address] [place] [address] PCP - General Internal Medicine 07/22/14 documented as of this encounter
--- OUTSIDE RECORDS SUMMARY | 2025-08-14 11:15 | XMS_ITS | Clinical Summary ---
Author Organization [facility], Address [address] [place] [address] [place] [address] Phone Care Team Providers Care Rn Integrated Name Role Phone Josep Sellers MD Primary [...] topic Insurance Medicare Medicaid [place] Care Teams Rn Integrated Relationship Specialty Start Date End Date Josep Sellers MD PCP - General Internal Medicine 07/30/20
--- OUTSIDE RECORDS SUMMARY | 2025-08-14 11:15 | XMS_ITS | Clinical Summary ---
Author Organization [address] [place] [address] Address [address] [place] [address] Phone Care Team Providers Care Manager Core Name Role Phone Josep Prieto MD Primary [...] Insurance MEDICARE MEDICAID - [place] Care Teams Manager Core Relationship Specialty Start Date End Date Josep Prieto MD [address] [place] [address] [place] [address] PCP - General 08/10/14
--- OUTSIDE RECORDS SUMMARY | 2025-08-14 11:15 | XMS_ITS | Encounter Summary ---
Author Organization [facility], Address [address] [place] [address] Phone Care Team Providers Care Refueler Name Role Phone Josep Sellers MD Primary Care Provider Unav ailable Encounter Details Date Type Department Care Team (Late st Contact Info) Description 03/30/2022 Documentation Only [facility], [address] [place] [address] Jimmie Corrales MD [address] [place] [address] Social History Tobacco Use Types [...] on filedocumented in this encounter Care Teams Refueler Relationship Specialty Start Date End Date Josep Sellers MD PCP - General Internal Medicine 07/30/20 documented as of this encounter
--- OUTSIDE RECORDS SUMMARY | 2025-08-14 11:15 | XMS_ITS | Encounter Summary ---
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 Pt was frustrated as he couldn't specify correct information . Please return call [phone] documented in this encounter Plan of Treatment Upcoming Encounters Date Type Department Care Team (Late st Contact Info) Description 08/17/2025 3:00 PM EDT Medication Management [facility] MEDICINE 230 [place] [address] Wendi Hernández, Gladis [address] [place] [address] documented as of this encounter Goals Goal [...] documented as of this encounter Care Teams Silk Presser Relationship Specialty Start Date End Date Josep Pascual MD [address] [place] [address] PCP - General Internal Medicine 07/22/14 documented as of this encounter
--- OUTSIDE RECORDS SUMMARY | 2025-08-14 11:15 | XMS_ITS | Encounter Summary ---
Author Organization [employer] Address [address] [place] [address] 7t [place] [address] Care Team Providers Care Ophthalmic Asst Name Role Phone Josep Pascual MD Primary Care Provide r Reason for Visit * Reason Comments Med Refill Encounter Details Date Type Department Care Team ([facility] st Contact Info) Description 11/03/2024 Refill [facility] MEDICINE 230 [place], [place] [phone] Lillian oGnzalez MD 230 [place], [place] [phone] Pain Social History Tobacco Use Types Packs/Day [...] Medication Management [facility] MEDICINE 230 [place] [address] Wendi Hernández, PharmD 230 [place] [address] documented as of this encounter Goals Goal [...] documented as of this encounter Care Teams Ophthalmic Asst Relationship Specialty Start Date End Date Josep Pascual MD [address] [place] [address] PCP - General Internal Medicine 07/22/14 documented as of this encounter
--- OUTSIDE RECORDS SUMMARY | 2025-08-14 11:15 | XMS_ITS | Encounter Summary ---
Author Organization [employer] Address [address] [place] [address] 7t [place] [address] Care Team Providers Care Reactor Operator Name Role Phone Josep Pascual MD Primary Care Provide r Encounter Details Date Type Department Care Team ([facility] Contact Info) Description 11/07/2022 Orders Only [facility] MED & PEDS [address] [place], [place] [phone] Faviola Edmonds LPN Social History Tobacco Use [...] Description 08/17/2025 3:00 PM EDT Medication Management [facility] MEDICINE 230 [place], [place] [phone] Wendi Hernández, PharmD 230 [place] [address] documented as of this encounter Visit Diagnoses Not on filedocumented in this encounter Care Teams Reactor Operator Relationship Specialty Start Date End Date Josep Pascual MD 230 [place] [address] PCP - General Internal Medicine 07/22/14 documented as of this encounter
--- OUTSIDE RECORDS SUMMARY | 2025-08-14 11:15 | XMS_ITS | Encounter Summary ---
Author Organization [employer] Address [address] [place] [address] 7t [place] [address] Care Team Providers Care Logistics Team Leader Name Role Phone Josep Pascual MD Primary Care Provide r Encounter Details Date Type Department Care Team (Late st Contact Info) Description 08/06/2023 Telephone [facility] MEDICINE [address] [place] [address] [phone] Josep Pascual MD [address] [place] [address] [phone] Social History Tobacco Use Types Packs/Day Years [...] 3:00 PM EDT Medication Management [facility] MEDICINE [address] [place] [address] [phone] Wendi Hernández, PharmD 230 [place] [address] documented as of this encounter Visit Diagnoses Not on filedocumented in this encounter Care Teams Logistics Team Leader Relationship Specialty Start Date End Date Josep Pascual MD 230 [place] [address] PCP - General Internal Medicine 07/22/14 documented as of this encounter
--- OUTSIDE RECORDS SUMMARY | 2025-08-14 11:15 | XMS_ITS | Encounter Summary ---
Author Organization [employer] Address [address] [place] [address] 7t [place] [address] Care Team Providers Care Inspector Floor Name Role Phone Josep Pascual MD Primary Care Provide r Encounter Details Date Type Department Care Team (Late st Contact Info) Description 03/01/2023 Abstract [facility] MEDICINE [address] [place] [address] [phone] Josep Pascual MD 230 [place], [place] [phone] Social History Tobacco Use Types Packs/Day Years [...] 08/17/2025 3:00 PM EDT Medication Management [facility] MEDICINE 230 [place] [address] Wendi Hernández, PharmD 230 [place] [address] documented as of this encounter Visit Diagnoses Not on filedocumented in this encounter Care Teams Inspector Floor Relationship Specialty Start Date End Date Josep Pascual MD [address] [place] [address] PCP - General Internal Medicine 07/22/14 documented as of this encounter
--- OUTSIDE RECORDS SUMMARY | 2025-08-14 11:15 | XMS_ITS | Encounter Summary ---
Author Organization [employer] Address [address] [place] [address] 7t [place] [address] Care Team Providers Care Computer Designer Name Role Phone Josep Pascual MD Primary Care Provide r Encounter Details Date Type Department Care Team (Late st Contact Info) Description 02/17/2024 Orders Only [facility] MEDICINE [address] [place] [address] Provider, MD Cari Social History Tobacco Use [...] 3:00 PM EDT Medication Management [facility] MEDICINE [address] [place] [phone] Wendi Hernández PharmD 230 [place] [address] documented as of this encounter Goals Goal [...] on filedocumented in this encounter Care Teams Computer Designer Relationship Specialty Start Date End Date Josep Pascual MD [address] [place] [address] PCP - General Internal Medicine 07/22/14 documented as of this encounter
--- OUTSIDE RECORDS SUMMARY | 2025-08-14 11:15 | XMS_ITS | Encounter Summary ---
Author Organization [employer] Address [address] [place] [address] 7t [place] [address] Care Team Providers Care Rubber Grinder Name Role Phone Josep Pascual MD Primary Care Provide r Encounter Details Date Type Department Care Team (Late st Contact Info) Description 01/08/2023 Orders Only [facility] MED & PEDS [address] [place], [place] [phone] Faviola Edmonds LPN Social History Tobacco Use [...] Description 08/17/2025 3:00 PM EDT Medication Management [facility] MEDICINE [address] [place] [address] Wendi Hernández, PharmD 230 [place] [address] documented as of this encounter Visit Diagnoses Not on filedocumented in this encounter Care Teams Rubber Grinder Relationship Specialty Start Date End Date Josep Pascual MD [address] [place] [address] PCP - General Internal Medicine 07/22/14 documented as of this encounter
--- OUTSIDE RECORDS SUMMARY | 2025-08-14 11:15 | XMS_ITS | Encounter Summary ---
Author Organization [employer] Address [address] [place] [address] 7t [place] [address] Care Team Providers Care Maintenance Director Name Role Phone Josep Pascual MD Primary Care Provide r Reason for Visit * Reason Comments Med Refill Encounter Details Date Type Department Care Team (Late st Contact Info) Description 05/22/2024 Refill [facility] [address] [place], [place] [phone] Josep Pascual MD [address] [place] [address] Pain Social History Tobacco Use Types Packs/Day [...] Description 08/17/2025 3:00 PM EDT Medication Management [facility] [address] [place] [address] Wendi Hernández, PharmD [address] [place] [address] documented as of this encounter Goals Goal Patient Goal Type Associated Problems Recent Progress Patient-Stated? Author Blood Pressure < 140/90 Blood Pressure Essential (primary) hypertension 144/75(2024 4:44 PM EDT) No Shoaib Gonzalez, PharmD documented as of this encounter Visit Diagnoses Diagnosis Pain Generalized pain documented in this encounter Care Teams Maintenance Director Relationship Specialty Start Date End Date Josep Pascual MD [address] [place] [address] PCP - General Internal Medicine 07/22/14 documented as of this encounter
--- OUTSIDE RECORDS SUMMARY | 2025-08-14 11:15 | XMS_ITS | Encounter Summary ---
Author Organization [employer] Address [address] [place] [address] 7t [place] [address] Care Team Providers Care Supervisor Drying And Softening Name Role Phone Josep Pascual MD Primary Care Provide r Encounter Details Date Type Department Care Team ([facility] Contact Info) Description 11/27/2022 Orders Only [facility] MED & PEDS [address] [place], [place] [phone] Faviola Edmonds LPN Social History Tobacco Use [...] Description 08/17/2025 3:00 PM EDT Medication Management [facility] MEDICINE [address] [place], [place] [phone] Wendi Hernández, PharmD [address] [place] [address] documented as of this encounter Visit Diagnoses Not on filedocumented in this encounter Care Teams Supervisor Drying And Softening Relationship Specialty Start Date End Date Josep Pascual MD [address] [place] [address] PCP - General Internal Medicine 07/22/14 documented as of this encounter
--- OUTSIDE RECORDS SUMMARY | 2025-08-14 11:15 | XMS_ITS | Encounter Summary ---
Author Organization [employer] Address [address] [place] [address] 7t [place] [address] Care Team Providers Care Epic Beacon Analyst Name Role Phone Josep Pascual MD Primary Care Provide r Reason for Visit * Reason Comments Med Refill Encounter Details Date Type Department Care Team ([facility] st Contact Info) Description 08/05/2025 Refill [facility] [address] [place], [place] [phone] Josep Pascual MD [address] [place], [place] [phone] Social History Tobacco Use Types Packs/Day Years [...] 3:00 PM EDT Medication Management [facility] [address] [place] [address] Wendi Hernández, PharmD [address] [place] [address] documented as of this encounter Goals Goal [...] documented as of this encounter Care Teams Epic Beacon Analyst Relationship Specialty Start Date End Date Josep Pascual MD [address] [place] [address] PCP - General Internal Medicine 07/22/14 documented as of this encounter
--- OUTSIDE RECORDS SUMMARY | 2025-08-14 11:15 | XMS_ITS | Clinical Summary ---
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 Last stress test is from 2016 that showed no ischemic findings. Clinically, he [...] kidney disease (CKD) , stage III (moderate) ([facility]) 10/08/2012 Assessment & Plan (03/12/2025 2:46 PM [...] Type Department Care Team Description 08/05/2025 Refill [facility] [address] [place] [address] Josep Pascual MD 08/05/2025 Refill [facility] [address] [place] [address] Josep Pascual MD 08/04/2025 Refill [facility] [address] [place] [address] Josep Pascual MD Pain 08/01/2025 Orders Only GENERIC EXTERNAL DATA DEPARTMENT Provider, Generic External Data 07/13/2025 Refill [facility] [address] [place] [address] aKit Child, ANP 07/09/2025 Refill [facility] [address] [place] [address] Josep Pascual MD Pain 07/07/2025 Refill [facility] [address] [place] [address] Linda Reed MD Pain 07/02/2025 Refill [facility] [address] [place] [address] Josep Pascual MD 06/10/2025 Refill [facility] [address] [place] [address] Josep Pascual MD Pain 06/02/2025 Refill [facility] [address] [place] [address] Josep Pascual MD 05/25/2025 Telephone [facility] [address] [place] [address] Josep Pascual MD Lab Orders 05/14/2025 Refill [facility] [address] [place] [address] Josep Pascual MD Pain from Last 3 [...] Description 08/17/2025 3:00 PM EDT Medication Management [facility] [address] [place] [address] Wendi Hernández, PharmD [address] [place] [address] Health Maintenance Due Date Last Done Comments [...] Essential (primary) hypertension 144/75(2024 4:44 PM EDT) Shoaib Guerrier PharmD Procedures Procedure Name Priority Date/Time Associated Diagnosis [...] PM EDT Narrative 08/01/2025 3:37 PM EDT [address] [address] XRay Report Signed Patient: Alan Aguilera MR#: [id number] 38 : 1950 Acct:[id number] Age/Sex: 74 / M ADM Date: 08/01/25 Loc: .ED Attending Dr: Ordering Physician: Mirian Sullivan Date of Service: 08/01/25 Procedure(s): XR chest 2V Accession Number(s): [id number] cc: Josep Prieto MD; Mirian Sullivan Reason [...] in OV> 08/01/25 1537 DD/ 1535 TD/TT: 08/01/25 1535 Sourcing Manager: Procedure Note Donotuseinterpreter, Image - 08/01/[address] [address] XRay Report Signed Patient: Alan Aguilera MMR#: [id number] 37 : 9Acct:[id number] Age/Sex: 74 / MADM Date: 08/01/25 Loc: HO.ED Attending Dr: Ordering Physician: Mirian Sullivan Date of Service: 08/01/25 Procedure(s): XR chest 2V Accession Number(s): [id number] cc: Josep Prieto MD; Mirian Sullivan Reason [...] in OV> 08/01/25 1537 DD/ 1535 TD/TT: 08/01/25 1535 Sourcing Manager: [facility] External Provider IMG XR PROCEDURES Final Result * Blood Culture (Second) (08/01/2025 2:02 PM EDT) Blood Venous blood specimen / Unknown 08/01/2025 2:02 PM EDT 08/01/2025 2:44 PM EDT Comment:Blood Narrative [facility] - 08/06/2025 4:44 PM EDT Blood Culture (Second) No growth after 5 days. Specimen Source: Blood Generic External Data Provider LAB MICROBIOLOGY - GENERAL ORDERABLES Final Result [facility] [address] [place] [address] [phone] * Blood Culture (First) (08/01/2025 2:01 PM EDT) Blood Venous blood specimen / Unknown 08/01/2025 2:01 PM EDT 08/01/2025 2:39 PM EDT Comment:Blood Narrative [facility] - 08/06/2025 4:39 PM EDT Blood Culture (First) No growth after 5 days. Specimen Source: Blood Generic External Data Provider LAB MICROBIOLOGY - GENERAL ORDERABLES Final Result Performing Organization Address [facility] Co de Phone Number [facility] [address] [place] [phone] * Strep A Nucleic Acid (08/01/2025 2:01 PM EDT) IDNOW SERIAL# [id number] [facility] Strep A Nucleic Acid Negative Negative [facility] Comment:All test results mus t be [...] GENERAL ORDERABLES Final Result Performing Organization Address [facility]/ZIP Co de Phone Number [facility] [address] [place] [phone] * Tick-borne Disease, Acute Molecular Panel (08/01/2025 2:00 PM EDT) Babesia microti DNA, Real Time PCR NOT DETECTED NOT DETECTED [facility] Comment:This test was develo ped and its analytical performancecharacteristics have been determined by [employer]. It has not been cleared or approved by theA. This assay has been validated pursuant to the CLIAregulations and is used for clinical purposes.THIS TEST WAS PERFORMED AT:[facility] [address] [id number] CROWE MD Ehrlichia chaffensis DNA Real Time PCR NOT DETECTED NOT DETECTED [facility] Comment:This test was develo ped and its analytical performancecharacteristics have been determined by [employer]. It has not been cleared or approved by theFDA. This assay has been validated pursuant to the CLIAregulations and is used for clinical purposes.THIS TEST WAS PERFORMED AT:[facility] [address] [address]DZMPGNA CROWE MD Anaplasma phagocytophilum DNA, QL Real Time PCR NOT DETECTED NOT DETECTED [facility] Comment:This test was develo ped and its analytical performancecharacteristics have been determined by [employer]. It has not been cleared or approved by theFDA. This assay has been validated pursuant to the CLIAregulations and is used for clinical purposes. Borrelia Species DNA, Ql Real Time PCR NOT DETECTED NOT DETECTED [facility] Comment:This test was develo ped and its analytical performancecharacteristics have been determined by [employer]. It has not been cleared or approved by theFDA. This assay has been validated pursuant to the CLIAregulations and is used for clinical purposes.For additional information, please refer tohttps://education.Group [employer].Siklu/faq/jwa746(This link is being provided for informational/educational purposes only.)THIS TEST WAS PERFORMED AT:[facility] [address] [phone] CROWE MD Borrelia Miyamotoi DNA, Ql Real Time PCR NOT DETECTED NOT DETECTED [facility] Comment:This test was develo ped and its analytical performancecharacteristics have been determined by [employer]. It has not been cleared or approved by theFDA. This assay has been validated pursuant to the CLIAregulations and is used for clinical purposes.THIS TEST WAS PERFORMED AT:[facility] [address] [address]CLKFUNA CROWE MD Comment SEE NOTE [facility] Comment:A negative result do es not exclude Borrelia infectionas the concentration of the organism in blood may be lowor non-existent in patients with Lyme disease, and maydepend on timing of specimen collection from onset ofsymptoms. Clinical correlation is recommended andadditional studies such as serologic testing may beindicated.THIS TEST WAS PERFORMED AT:[facility] [address] [address]SWGUTNA CROWE MD 08/01/2025 2:00 PM EDT 08/01/2025 2:21 PM EDT us Generic External Data Provider LAB BLOOD ORDERAB LES Final Result [facility] [address] [place] [phone] * Lyme Disease Ab with Reflex to Blot (IgG, IgM) (08/01/2025 2:00 PM EDT) Lyme Antibody Screen <0.90 index [facility] Comment:Index Interpretation ----- < 0.90 Negative [...] when erythemamigrans is apparent.THIS TEST WAS PERFORMED AT:[facility] [address] [address]ACMOHNA CROWE MD Lyme Blot TNP [facility] 08/01/2025 2:00 PM EDT 08/01/2025 2:21 PM EDT us Generic External Data Provider LAB BLOOD ORDERAB LES Final Result Performing Organization Address [facility] Co de Phone Number [facility] [address] [place] [phone] * Mononucleosis Test, Qualitative (08/01/2025 2:00 PM EDT) Monotest Negative Negative [facility] 08/01/2025 2:00 PM EDT 08/01/2025 2:20 PM EDT Generic External Data Provider LAB BLOOD ORDERAB LES Final Result Performing Organization Address [facility] de Phone Number [facility] [address] [place] [phone] * Lactic Acid (08/01/2025 2:00 PM EDT) [facility] Lactic Acid 2.0 0.5 - 2.0 mmol/L [facility] 08/01/2025 2:00 PM EDT 08/01/2025 2:20 PM EDT Generic External Data Provider LAB BLOOD ORDERAB LES Final Result Performing Organization Address [facility] Co de Phone Number [facility] [address] [place] [phone] * Influenza A B2 ID NOW ([place]ackett) (08/01/2025 1:42 PM EDT) IDNOW SERIAL# [id number] [facility] Influenza A Negative Negative [facility] Influenza B2 Negative Negative [facility] Influenza A B2 Note See Note [facility] Comment:The Hackett ID NOW In fluenza [...] LAB MICROBIOLOGY - GENERAL ORDERABLES Final Result [facility] [address] [place] [phone] * (ABNORMAL) COVID-19 ID NOW (HACKETT) (08/01/2025 1:42 PM EDT) IDNOW SERIAL# [id number] [facility] COVID-19 TEST Positive (A) Negative [facility] COVID-19 NOTE See Note [facility] Comment: Results are for the identification of SARS-CoV2 RNA. TheSARS-CoV2 RNA is generally detectable in respiratory samplesduring the acute phase of infection. Positive results areindicative of the presence of SARS-CoV-2 RNA; clinicalcorrelation with patient history and other diagnosticinformation is necessary to determine patient infectionstatus. Positive results do not rule out bacterial infectionor co- infection with other viruses.Testing facilities within the [facility] and itsterritories are required to report all [...] use by authorized laboratories.Testing performed on the Hackett ID NOW utilizing NAAT. 08/01/2025 1:42 PM EDT 08/01/2025 1:48 PM EDT us Generic External Data Provider LAB MOLECULAR SAJI GNOSTICS ORDERABLES Final Result [facility] [address] [place] [phone] [phone] * (ABNORMAL) CBC auto differential (08/01/2025 1:42 PM EDT) White Blood Count 7.4 4.8 - 10.8 X10*3/uL [facility] Red Blood Count 3.85(L) 4.60 - 5.80 X10*6/uL [facility] Hemoglobin 11.8(L) 14.0 - 18.0 g/dl [facility] Hematocrit 36.2(L) 42.0 - 52.0 % [facility] Mean Corpuscular Volume 94.0 80.0 - 98.0 fL [facility] Mean Corpuscular Hemoglobin 30.6 27.0 - 33.0 pg [facility] Mean Corpuscular HGB Conc 32.6 31.0 - 36.0 g/dl [facility] Red Cell Distribution Width 12.1 11.0 - 16.0 % [facility] Platelet Count 242 160 - 400 X10*3/uL [facility] Mean Platelet Volume 9.6 9.4 - 12.4 fL [facility] Neutrophils Percent Auto 74.7(H) 45 - 73 % [facility] Imm Gran Pct Auto 0.3 0.0 - 0.4 % [facility] Lymphocytes Percent Auto 14.4(L) 20 - 40 % [facility] Monocytes Percent Auto 8.9 2 - 11 % [facility] Eosinophils Percent Auto 1.2 0 - 4 % [facility] Basophils Percent Auto 0.5 0 - 2 % [facility] NRBC Pct Auto 0.0 0.0 - 0.2 /100WBC [facility] Neutrophils Absolute Auto 5.5 2.0 - 8.3 x10*3/uL [facility] Imm Gran Abs Auto 0.02 0.00 - 0.03 X10*3/uL [facility] Lymphocytes Absolute Auto 1.1(L) 1.2 - 4.9 X10*3/uL [facility] Monocytes Absolute Auto 0.7 0.1 - 1.2 X10*3/uL [facility] Eosinophils Absolute Auto 0.1 0.0 - 0.4 X10*3/uL [facility] Basophils Absolute Auto 0.0 0.0 - 0.2 X10*3/uL [facility] NRBC Abs Auto 0.000 0.0 - 0.012 X10*3/uL [facility] 08/01/2025 1:42 PM EDT 08/01/2025 1:48 PM EDT Generic External Data Provider LAB BLOOD ORDERAB LES Final Result Performing Organization Address [facility]/ZIP Mt de Phone Number [facility] [address] [place] [phone] * (ABNORMAL) Magnesium (08/01/2025 1:42 PM EDT) [facility] Magnesium 1.5(L) 1.6 - 2.6 mg/dL [facility] 08/01/2025 1:42 PM EDT 08/01/2025 1:48 PM EDT Generic External Data Provider LAB BLOOD ORDERAB LES Final Result Performing Organization Address [facility]/ZIP Co de Phone Number [facility] [address] [place] [phone] * (ABNORMAL) Comprehensive Metabolic Panel (08/01/2025 1:42 PM EDT) Pathologist [facility] Sodium 137 135 - 145 mmol/L [facility] Potassium 4.6 3.3 - 5.1 mmol/L [facility] Chloride 103 96 - 108 mmol/L [facility] Carbon Dioxide 26 22 - 29 mmol/L [facility] Anion Gap 13 12 - 20 [facility] Urea Nitrogen (BUN) 20(H) 9 - 16 mg/dL [facility] Creatinine, Serum 1.24 0.5 - 1.4 mg/dL [facility] Creatinine Clr Calc Pharmacy 51.4 [facility] Comment:eGFR (calculated fro m the MDRD study equation) and eCrCl(calculated from the Cockcroft-Gault equation) are based ondifferent parameters and may not yield comparable results.If eCrCl result is absurd, please check patient'sheight/weight. Estimated Glomerular Filt Rate 57 [facility] Comment:Chronic Kidney Disea se: Estimated GFR < 60 mL/min/1.89m6Renvtn Kidney Disease: Estimated GFR < 15 mL/min/1.73m2 Glucose 145(H) 60 - 115 mg/dL [facility] Calcium 9.5 8.4 - 10.2 mg/dL [facility] Bilirubin, Total 1.5(H) 0.0 - 1.0 mg/dL [facility] Aspartate Amino Transferase 34 5 - 37 U/L [facility] Alanine Aminotransferase 32 0 - 40 U/L [facility] Total Protein 7.5 6.5 - 8.0 g/dL [facility] Albumin Level 4.4 3.5 - 5.0 g/dL [facility] Alkaline Phosphatase 75 39 - 117 U/L [facility] 08/01/2025 1:42 PM EDT 08/01/2025 1:48 PM EDT us Generic External Data Provider LAB BLOOD ORDERAB LES Final Result [facility] [address] [place] [phone] * POCT HGB A1C (03/30/2025 6:10 PM EDT) Hemoglobin A1C 5.2 4.0 - 6.0 % QC Media Lot # [id number] Lot# Expiration Date Blood 03/30/2025 6:10 PM EDT us Jose A Ko MD POINT OF CARE TEST ENTER/EDIT ORDERABLES Final Result * (ABNORMAL) Lipid Panel, Standard (08/06/2024 9:50 AM EDT) Triglycerides 159(H) <150 mg/dL [facility] Comment:Desirable Triglyceri de: less than 150 mg/dLBorderline High Triglyceride 150-199 mg/dLHigh Triglyceride: 200-499 mg/dLVery High Triglyceride: greater than or equal to 5OO mg/dL Cholesterol 136 <200 mg/dL [facility] Comment:Desirable Cholestero l: less than 200 mg/dLBorderline High Cholesterol: 200-239 mg/dLHigh Cholesterol: greater than 239 mg/dL LDL Cholesterol Calculated 67 <100 mg/dL [facility] Comment:Desirable LDL: less than 100 mg/dLNear Optimal/Above Optimal LDL: 110- 129 mg/dLBorderline High LDL: 130-159 mg/dLHigh LDL: 160-189 mg/dLVery High LDL: greater than or equal to 190 mg/dL HDL Cholesterol 38(L) >40 mg/dL [facility] Comment:Desirable HDL: great er than 40 mg/dL Note: This HDL assay may give artificially low results in patients with liver disease. Blood Venous blood specimen / Unknown 08/06/2024 9:50 AM EDT 08/06/2024 11:37 AM EDT us Josep Agarwal MD LAB BLOOD ORDERABLES Final Result [facility] [address] [place] [phone] * HEPATITIS C AB W/REFL TO [...] a test for HCV RNA (test code 25809) is suggested. For additional information please refer to http://education.txtr/faq/RVT10f2 (This link is being provided for informational/ educational purposes only.) 01/25/2022 8:52 AM EDT Josep Agarwal MD HISTORICAL/NON ORDERA BLE LABS Final Result Performing Organization Address [facility] de Phone Number [facility] [address] [place] [address], * (ABNORMAL) ALBUMIN, RANDOM URINE W/CREATININE (01/25/2022 [...] URINE ORDERABLES Final Result Performing Organization Address [facility] de Phone Number [facility] [address] [place] [address], * Hm Colonoscopy (09/06/2015 4:31 PM EST) Historical Provider HEALTH MAINTENANCE Final Result from Last 3 Months or Most Recently Relevant to Health Maintenance Care Teams Warp Tying Machine Tender Relationship Specialty Start Date End Date Josep Pascual MD [address] [place] [phone] PCP - General Internal Medicine 07/22/14
[2025-08-14 12:34] LABS: Ferritin 514 ng/mL (20-250); Iron 88 mcg/dL (45-160); Percent Iron Saturation 34 % (15-50); Total Iron Binding Capacity 261 mcg/dL (228-428); Unsaturated Iron Binding 173 ug/dL
[2025-08-14 13:03] LABS: Folate 12.1 ng/mL (> or = 4.0); Vitamin B12 575 pg/mL (200-900)
[2025-08-17 07:44] LABS: TS Negative Control Passed; TS Panel A 0; TS Panel B 0; TS Positive Control Passed; TSpotTB Negative (Negative)
[2025-08-22 21:48] LABS: Testosterone, Free 34.2 pg/mL (30.0-135.0)
== END 2025-08-14 09:57 | disposition home or self-care (01) ==
LOC: HO.HHCL 09:56
PROVIDERS: PCP Internal Medicine; Visit Provider Nurse Practitioner Family
DX: E11.22 Type 2 diabetes mellitus with diabetic chronic kidney disease (principal); N18.9 Chronic kidney disease, unspecified; D63.1 Anemia in chronic kidney disease; E11.69 Type 2 diabetes mellitus with other specified complication; N52.1 Erectile dysfunction due to diseases classified elsewhere; Z11.1 Encounter for screening for respiratory tuberculosis
CPT/HCPCS: 36415; 82607; 82728; 82746; 83036; 83540; 84402; 84403; 86481